=== PATIENT | female | born 1940 | race Caucasian/White ===

== ENCOUNTER → 2019-08-13 | Outpatient (CLI) | payer MEDICARE | LOC: FB.LABPRM 04:24 | PROVIDERS: ATTEND Family Medicine | DX: I48.91 Unspecified atrial fibrillation (principal) | CPT/HCPCS: 36415; 85610 ==

== ENCOUNTER → 2019-08-16 | Outpatient (CLI) | payer MEDICARE ==
[2019-08-16 06:57] LABS: HEMOGLOBIN A1C 7.1 % (4.5-6.2)
[2019-08-17 06:09] LABS: MICROALB/CREAT RATIO 36.2 mg/g creat (0.0-30.0)
== END ==
LOC: FB.LABPRM 04:06
PROVIDERS: ATTEND Family Medicine
DX: E11.9 Type 2 diabetes mellitus without complications (principal); I48.91 Unspecified atrial fibrillation; M10.9 Gout, unspecified
CPT/HCPCS: 36415; 80061; 82043; 82570; 83036; 84550; 85610

== ENCOUNTER → 2019-08-20 | Outpatient (CLI) | payer MEDICARE | LOC: FB.LABPRM 04:01 | PROVIDERS: ATTEND Family Medicine | DX: I48.91 Unspecified atrial fibrillation (principal) | CPT/HCPCS: 36415; 85610 ==

== ENCOUNTER 2019-08-27 19:03 | Emergency (ER) | payer MEDICARE ==
--- NOTE | 2019-08-27 20:38 | EDM.PDOC ---
ED HPI GENERAL MEDICAL PROBLEM - General Chief Complaint: Cardiovascular Problem Stated Complaint: weight gain Time Seen by Provider: 08/27/19 19:20 Source of Information: Reports: Patient History Limitations: Reports: No Limitations - History of Present Illness INITIAL COMMENTS - FREE TEXT/NARRATIVE: Patient presented to the ED because of weight gain and confusion. She denies any specific complains. She said there is nothing wrong with her at all and she is not just feeling right because her daughter is recently diagnosed with cancer and she feel bad about it. - Related Data Allergies Allergy/AdvReac Type Severity Reaction Status Date / Time aloe Allergy Other Verified 08/27/19 19:55 apixaban [From Eliquis] Allergy Other Verified 08/27/19 19:55 bee venom protein (honey bee) Allergy Other Verified 08/27/19 19:55 ciprofloxacin Allergy Other Verified 08/27/19 19:55 gabapentin Allergy Other Verified 08/27/19 19:55 lidocaine Allergy Other Verified 08/27/19 19:55 lisinopril Allergy Other Verified 08/27/19 19:55 mirabegron [From Myrbetriq] Allergy Other Verified 08/27/19 19:55 Penicillins Allergy Other Verified 08/27/19 19:55 prednisolone Allergy Other Verified 08/27/19 19:55 tomato Allergy Other Verified 08/27/19 19:55 tramadol Allergy Other Verified 08/27/19 19:55 Home Meds: Home Meds Furosemide [Lasix] 40 mg PO QAM #30 tab 08/27/19 [Rx] Past Medical History HEENT History: Reports: Glaucoma, Other (See Below) Other HEENT History: Dry eyes Cardiovascular History: Reports: Afib, Heart Failure, Hypertension, Other (See Below) Other Cardiovascular History: Occlusion and stenosis of carotid artery, 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, edema, PVD Gastrointestinal History: Reports: GERD, Other (See Below) Other Gastrointestinal History: Constipation, hyperlipidemia Genitourinary History: Reports: Other (See Below) Other Genitourinary History: Cystocele, overactive bladder, INCONTINENCE Musculoskeletal History: Reports: Other (See Below) Other Musculoskeletal History: Spinal stenosis, fibromyalgia Neurological History: Reports: CVA, TIA, Other (See Below) Other Neuro History: Polyneuropathy Psychiatric History: Reports: Anxiety, Depression Endocrine/Metabolic History: Reports: Diabetes, Type II, Obesity/BMI 30+ Hematologic History: Reports: Anemia Social & Family History - Tobacco Use Smoking Status *Q: Unknown Ever Smoked - Caffeine Use Caffeine Use: Reports: Coffee - Recreational Drug Use Recreational Drug Use: No ED ROS GENERAL - Review of Systems Review Of Systems: See Below Constitutional: Reports: No Symptoms HEENT: Reports: Glasses Respiratory: Reports: No Symptoms Cardiovascular: Reports: No Symptoms GI/Abdominal: Reports: No Symptoms : Reports: No Symptoms Musculoskeletal: Reports: No Symptoms Skin: Reports: No Symptoms Neurological: Reports: No Symptoms Psychiatric: Reports: No Symptoms ED EXAM, GENERAL - Physical Exam Exam: See Below Exam Limited By: No Limitations General Appearance: Alert, WD/WN, No Apparent Distress Nose: Normal Inspection, Normal Mucosa, No Blood Throat/Mouth: Normal Inspection, Normal Lips, Normal Teeth, Normal Gums Course - Vital Signs Text/Narrative:: Labs reviewed and discussed with patient resume lasix 40 mg po q Am x5 days Last Recorded V/S: Last Vital Signs Temp 36.8 C 08/27/19 19:45 Pulse 82 08/27/19 19:45 Resp 16 08/27/19 19:45 BP 177/64 H 08/27/19 19:45 Pulse Ox 93 L 08/27/19 19:45 - Orders/Labs/Meds Labs: Laboratory Tests 08/27/19 08/27/19 Range/Units 20:20 20:20 WBC 6.5 (4.5-12.0) X10-3/uL RBC 3.25 (3.23-5.20) x10(6)uL Hgb 9.2 L (11.5-15.5) g/dL Hct 28.2 L (30.0-51.3) % MCV 86.9 (80-96) fL MCH 28.2 (27.7-33.6) pg MCHC 32.5 (32.2-35.4) g/dL RDW 19.8 H (11.5-15.5) % Plt Count 239 (125-369) X10(3)uL MPV 9.0 (7.4-10.4) fL Neut % (Auto) 60.6 (46-82) % Lymph % (Auto) 26.4 (13-37) % [place] % (Auto) 7.6 (4-12) % Eos % (Auto) 5 (1.0-5.0) % Baso % (Auto) 0 (0-2) % Neut # (Auto) 4.0 (1.6-8.3) # Lymph # (Auto) 1.7 (0.6-5.0) # [place] # (Auto) 0.5 (0.0-1.3) # Eos # (Auto) 0.3 (0.0-0.8) # Baso # (Auto) 0.0 (0.0-0.2) # Sodium 143 (135-145) mmol/L Potassium 4.2 (3.5-5.3) mmol/L Chloride 110 D (100-110) mmol/L Carbon Dioxide 24 (21-32) mmol/L BUN 20 H D (7-18) mg/dL Creatinine 0.9 (0.55-1.02) mg/dL Est Cr Clr Drug Dosing 41.24 mL/min Estimated GFR (MDRD) > 60 (>60) BUN/Creatinine Ratio 22.2 H (9-20) Glucose 196 H (80-116) mg/dL Calcium 9.5 (8.6-10.2) mg/dL Departure - Departure Time of Disposition: 20:50 Disposition: DC/Tfer to SNF 03 Reason for Transfer *Q: Other Condition: Good Clinical Impression: Peripheral edema, CHF (congestive heart failure) Prescriptions: Furosemide [Lasix] 40 mg PO QAM #30 tab Referrals: Juliana Casas NP [Primary Care Provider] - Forms: ED Department Discharge Additional Instructions: please read discharge instructions on peripheral edema and CHF lasix 40 mg once every morning for 5 days follow up with your doctor on Friday
== END 2019-08-27 21:15 ==
LOC: FB.ED 19:03
DX: I11.0 Hypertensive heart disease with heart failure (principal); I50.9 Heart failure, unspecified; I48.91 Unspecified atrial fibrillation; Z88.8 Allergy status to other drugs, medicaments and biological substances; Z88.0 Allergy status to penicillin; Z88.5 Allergy status to narcotic agent; Z91.018 Allergy to other foods; Z91.030 Bee allergy status; Z88.6 Allergy status to analgesic agent; Z86.73 Personal history of transient ischemic attack (TIA), and cerebral infarction without residual deficits
CPT/HCPCS: 36415; 80048; 85025; 99285

== ENCOUNTER 2019-09-02 14:42 | Emergency (ER) | payer MEDICARE ==
--- NOTE | 2019-09-02 17:00 | EDM.PDOC ---
ED HPI GENERAL MEDICAL PROBLEM - General Chief Complaint: General Stated Complaint: PANCREATITIS Time Seen by Provider: 09/02/19 15:15 Source of Information: Reports: Patient History Limitations: Reports: No Limitations - History of Present Illness INITIAL COMMENTS - FREE TEXT/NARRATIVE: Patient presented to the ED for reevaluation of pancreatitis on CT of the abd/ pelvis. There is also small pleural effusion. Patient denies and abdominal pain ,N/V. She also denies having any dyspnea, cough or cold, fever or chills. - Related Data Allergies Allergy/AdvReac Type Severity Reaction Status Date / Time aloe Allergy Other Verified 09/02/19 14:55 apixaban [From Eliquis] Allergy Other Verified 09/02/19 14:55 bee venom protein (honey bee) Allergy Other Verified 09/02/19 14:55 ciprofloxacin Allergy Other Verified 09/02/19 14:55 gabapentin Allergy Other Verified 09/02/19 14:55 lidocaine Allergy Other Verified 09/02/19 14:55 lisinopril Allergy Other Verified 09/02/19 14:55 mirabegron [From Myrbetriq] Allergy Other Verified 09/02/19 14:55 Penicillins Allergy Other Verified 09/02/19 14:55 prednisolone Allergy Other Verified 09/02/19 14:55 tomato Allergy Other Verified 09/02/19 14:55 tramadol Allergy Other Verified 09/02/19 14:55 Home Meds: Home Meds Acetaminophen 650 mg PO Q4H PRN 08/27/19 [History] Acetaminophen [Tylenol Extra Strength] 1,000 mg PO BID 08/27/19 [History] Acetaminophen with Codeine [Tylenol with Codeine #3 Tablet] 2 tab PO BID PRN [History] Allopurinol [Zyloprim] 200 mg PO DAILY 08/27/19 [History] Aspirin 81 mg PO DAILY 08/27/19 [History] Bisacodyl [Dulcolax] 10 mg RECTAL Q3D PRN 08/27/19 [History] Brimonidine [Alphagan 0.2% Ophth Soln] 1 drop EYEBOTH BID 08/27/19 [History] DULoxetine [Cymbalta] 60 mg PO DAILY 08/27/19 [History] Isosorbide Mononitrate [Isosorbide Mononitrate ER] 60 mg PO DAILY 08/27/19 [ History] Latanoprost/Pf [Latanoprost 0.005% Eye Drop] 1 drop EYEBOTH BEDTIME 08/27/19 [ History] Loperamide HCl [Imodium A-D] 2 mg PO ASDIRECTED PRN 08/27/19 [History] Menthol [Icy Hot Pain Relieving] 1 applic TOP ASDIRECTED PRN 08/27/19 [History] Metoprolol Succinate [Toprol Xl] 50 mg PO BID 08/27/19 [History] Mirtazapine [Remeron] 7.5 mg PO BEDTIME 08/27/19 [History] Ondansetron [Zofran ODT] 4 mg PO TID PRN 08/27/19 [History] Polyethylene Glycol 1450 17 gm PO ASDIRECTED PRN 08/27/19 [History] Polyethylene Glycol 3350 [MiraLAX] 17 gm PO DAILY 08/27/19 [History] Pramipexole Di-HCl [Pramipexole Dihydrochloride] 1 tab PO ASDIRECTED PRN [History] Propylene Glycol/PEG 400/Pf [Systane Ultra 0.4-0.3% Eye Drp] 1 drop EYEBOTH QID 08/27/19 [History] Sennosides/Docusate Sodium [Senokot-S Tablet] 1 tab PO BID 08/27/19 [History] Sodium Chloride 0.65% [[place] Saline] 2 spray NASBOTH Q2H PRN 08/27/19 [History] Trolamine Salicylate/Aloe Vera [Aspercreme 10% Cream] 1 applic TOP ASDIRECTED PRN 08/27/19 [History] Warfarin Sodium [Coumadin] 5 mg PO DAILY 08/27/19 [History] glipiZIDE [Glipizide ER] 10 mg PO DAILY 08/27/19 [History] Furosemide [Lasix] 20 mg PO QAM 09/02/19 [History] Nitroglycerin [Nitrostat] 0.4 mg SL ASDIRECTED 09/02/19 [History] Past Medical History HEENT History: Reports: Glaucoma, Other (See Below) Other HEENT History: Dry eyes Cardiovascular History: Reports: Afib, Heart Failure, Hypertension, Other (See Below) Other Cardiovascular History: Occlusion and stenosis of carotid artery, 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, edema, PVD Gastrointestinal History: Reports: GERD, Other (See Below) Other Gastrointestinal History: Constipation, hyperlipidemia Genitourinary History: Reports: Other (See Below) Other Genitourinary History: Cystocele, overactive bladder, INCONTINENCE Musculoskeletal History: Reports: Other (See Below) Other Musculoskeletal History: Spinal stenosis, fibromyalgia Neurological History: Reports: CVA, TIA, Other (See Below) Other Neuro History: Polyneuropathy Psychiatric History: Reports: Anxiety, Depression Endocrine/Metabolic History: Reports: Diabetes, Type II, Obesity/BMI 30+ Hematologic History: Reports: Anemia Social & Family History - Family History Family Medical History: Unobtainable - Tobacco Use Smoking Status *Q: Never Smoker - Caffeine Use Caffeine Use: Reports: Coffee, Soda - Recreational Drug Use Recreational Drug Use: No ED ROS GENERAL - Review of Systems Review Of Systems: See Below Constitutional: Reports: No Symptoms HEENT: Reports: No Symptoms Respiratory: Reports: No Symptoms Cardiovascular: Reports: No Symptoms Endocrine: Reports: No Symptoms GI/Abdominal: Reports: No Symptoms : Reports: No Symptoms Musculoskeletal: Reports: No Symptoms Skin: Reports: No Symptoms Neurological: Reports: No Symptoms Psychiatric: Reports: No Symptoms Hematologic/Lymphatic: Reports: No Symptoms Immunologic: Reports: No Symptoms ED EXAM, GENERAL - Physical Exam Exam: See Below Exam Limited By: No Limitations General Appearance: Alert, WD/WN, No Apparent Distress Eye Exam: Bilateral Eye: PERRL Ears: Normal External Exam, Normal Canal, Normal TMs Nose: Normal Inspection, Normal Mucosa, No Blood Throat/Mouth: Normal Inspection, Normal Lips, Normal Teeth Head: Normocephalic, Sinus Tenderness Neck: Normal Inspection, Supple, Non-Tender Respiratory/Chest: No Respiratory Distress, Lungs Clear, Normal Breath Sounds Cardiovascular: Normal Peripheral Pulses, Regular Rate, Rhythm, No Edema, No Gallop, No JVD, No Murmur, No Rub GI/Abdominal: Normal Bowel Sounds, Soft, Non-Tender, No Organomegaly Rectal (Female) Exam: Normal Exam, Normal Rectal Tone Back Exam: Normal Inspection, Full Range of Motion Extremities: Normal Inspection, Normal Range of Motion, Non-Tender, No Pedal Edema Skin Exam: Warm Course - Vital Signs Text/Narrative:: labs reviewed and discussed with patient and with full understanding Clinically , patient doesn't have pancreatitis. No abdominal pain,N/V, and lipase is normal The small pleural eff on CT is from her CHF,although she is not having exacerbation. Her oxygen saturation is normal,normal breathe sounds, no edema and denies having dyspnea. Last Recorded V/S: Last Vital Signs Temp 35.8 C 09/02/19 14:45 Pulse 72 09/02/19 15:51 Resp 20 09/02/19 15:51 BP 113/61 09/02/19 15:51 Pulse Ox 92 L 09/02/19 15:51 - Orders/Labs/Meds Orders: Active Orders 24 hr Category Date Time Status Chest 1V Frontal [CR] Stat Exams 09/02/19 15:54 Taken Labs: Laboratory Tests 09/02/19 09/02/19 09/02/19 Range/Units 16:19 16:19 16:19 WBC 6.9 (4.5-12.0) X10-3/uL RBC 3.47 (3.23-5.20) x10(6)uL Hgb 9.5 L (11.5-15.5) g/dL Hct 30.2 (30.0-51.3) % MCV 86.8 (80-96) fL MCH 27.2 L (27.7-33.6) pg MCHC 31.3 L (32.2-35.4) g/dL RDW 19.1 H (11.5-15.5) % Plt Count 239 (125-369) X10(3)uL MPV 9.0 (7.4-10.4) fL Neut % (Auto) 56.5 (46-82) % Lymph % (Auto) 29.2 (13-37) % [place] % (Auto) 8.1 (4-12) % Eos % (Auto) 6 H (1.0-5.0) % Baso % (Auto) 0 (0-2) % Neut # (Auto) 3.9 (1.6-8.3) # Lymph # (Auto) 2.0 (0.6-5.0) # [place] # (Auto) 0.6 (0.0-1.3) # Eos # (Auto) 0.4 (0.0-0.8) # Baso # (Auto) 0.0 (0.0-0.2) # Sodium 138 (135-145) mmol/L Potassium 3.7 (3.5-5.3) mmol/L Chloride 104 (100-110) mmol/L Carbon Dioxide 25 (21-32) mmol/L BUN 20 H (7-18) mg/dL Creatinine 1.0 (0.55-1.02) mg/dL Est Cr Clr Drug Dosing 37.12 mL/min Estimated GFR (MDRD) 53 L (>60) BUN/Creatinine Ratio 20.0 (9-20) Glucose 150 H (80-116) mg/dL Calcium 9.1 (8.6-10.2) mg/dL Total Bilirubin 0.7 (0.1-1.3) mg/dL AST 42 H D (5-25) IU/L ALT 44 H D (12-36) U/L Alkaline Phosphatase 271 H (56-112) IU/L Total Protein 6.4 (6.0-8.0) g/dL Albumin 2.8 L (3.2-4.6) g/dL Globulin 3.6 g/dL Albumin/Globulin Ratio 0.8 Amylase 29 (25-115) U/L Lipase 110 (73-393) U/L Departure - Departure Time of Disposition: 16:35 Disposition: DC/Tfer to SNF 03 Condition: Good Clinical Impression: Pleural effusion, CHF (congestive heart failure) - Discharge Information Instructions: Pleural Effusion, Heart Failure, [id number] Referrals: Axel Daivs MD [Primary Care Provider] - Forms: ED Department Discharge Additional Instructions: please read discharge instructions on CHF and pleural effusion follow up as needed - My Orders Last 24 Hours: My Active Orders 09/02/19 15:54 Chest 1V Frontal [CR] Stat - Assessment/Plan Last 24 Hours: My Active Orders 09/02/19 15:54 Chest 1V Frontal [CR] Stat
== END 2019-09-02 17:15 | disposition home or self-care (01) ==
LOC: FB.ED 14:42
DX: J90 Pleural effusion, not elsewhere classified (principal); I11.0 Hypertensive heart disease with heart failure; I50.9 Heart failure, unspecified; K21.9 Gastro-esophageal reflux disease without esophagitis; F41.9 Anxiety disorder, unspecified; F32.9 Major depressive disorder, single episode, unspecified; E11.9 Type 2 diabetes mellitus without complications; E66.9 Obesity, unspecified; Z79.82 Long term (current) use of aspirin; Z68.41 Body mass index [BMI] 40.0-44.9, adult; Z79.899 Other long term (current) drug therapy; Z79.84 Long term (current) use of oral hypoglycemic drugs; Z86.73 Personal history of transient ischemic attack (TIA), and cerebral infarction without residual deficits; Z88.8 Allergy status to other drugs, medicaments and biological substances; Z91.09 Other allergy status, other than to drugs and biological substances; Z88.6 Allergy status to analgesic agent; Z91.018 Allergy to other foods
CPT/HCPCS: 36415; 71045; 80053; 82150; 83690; 85025; 99284-25

== ENCOUNTER 2019-09-05 18:59 | Inpatient (IN) | payer MEDICARE ==
--- NOTE | 2019-09-05 19:27 | EDM.PDOC ---
ED HPI GENERAL MEDICAL PROBLEM - General Chief Complaint: Respiratory Problem Stated Complaint: TEMP/LOW OT STATS Time Seen by Provider: 09/05/19 19:05 Source of Information: Reports: Patient, [facility] Records History Limitations: Reports: Altered Mental Status - History of Present Illness INITIAL COMMENTS - FREE TEXT/NARRATIVE: pt with Hx of dementia, comes from [place] were she was noted to be running fever 101.9 this evening and looking confused also hypoxic by staff, sats are at high 80s on ra, pt here is confused and unable to provide reliable Hx , she does report some pain on stomach area, rest of medical Hx is unobtainable from pt. pt was seen here few days ago , she had recently on the abd CT showing signs of pancreatitis and pleural effusion however was asymptomatic at that time. - Related Data Allergies Allergy/AdvReac Type Severity Reaction Status Date / Time aloe Allergy Other Verified 09/05/19 19:10 apixaban [From Eliquis] Allergy Other Verified 09/05/19 19:10 bee venom protein (honey bee) Allergy Other Verified 09/05/19 19:10 ciprofloxacin Allergy Other Verified 09/05/19 19:10 gabapentin Allergy Other Verified 09/05/19 19:10 lidocaine Allergy Other Verified 09/05/19 19:10 lisinopril Allergy Other Verified 09/05/19 19:10 mirabegron [From Myrbetriq] Allergy Other Verified 09/05/19 19:10 Penicillins Allergy Other Verified 09/05/19 19:10 prednisolone Allergy Other Verified 09/05/19 19:10 tomato Allergy Other Verified 09/05/19 19:10 tramadol Allergy Other Verified 09/05/19 19:10 Home Meds: Home Meds Acetaminophen 650 mg PO Q4H PRN 08/27/19 [History] Acetaminophen [Tylenol Extra Strength] 1,000 mg PO BID 08/27/19 [History] Acetaminophen with Codeine [Tylenol with Codeine #3 Tablet] 2 tab PO BID PRN [History] Allopurinol [Zyloprim] 200 mg PO DAILY 08/27/19 [History] Aspirin 81 mg PO DAILY 08/27/19 [History] Bisacodyl [Dulcolax] 10 mg RECTAL Q3D PRN 08/27/19 [History] Brimonidine [Alphagan 0.2% Ophth Soln] 1 drop EYEBOTH BID 08/27/19 [History] DULoxetine [Cymbalta] 60 mg PO DAILY 08/27/19 [History] Isosorbide Mononitrate [Isosorbide Mononitrate ER] 60 mg PO DAILY 08/27/19 [ History] Latanoprost/Pf [Latanoprost 0.005% Eye Drop] 1 drop EYEBOTH BEDTIME 08/27/19 [ History] Loperamide HCl [Imodium A-D] 2 mg PO ASDIRECTED PRN 08/27/19 [History] Menthol [Icy Hot Pain Relieving] 1 applic TOP ASDIRECTED PRN 08/27/19 [History] Metoprolol Succinate [Toprol Xl] 50 mg PO BID 08/27/19 [History] Mirtazapine [Remeron] 7.5 mg PO BEDTIME 08/27/19 [History] Ondansetron [Zofran ODT] 4 mg PO TID PRN 08/27/19 [History] Polyethylene Glycol 1450 17 gm PO ASDIRECTED PRN 08/27/19 [History] Polyethylene Glycol 3350 [MiraLAX] 17 gm PO DAILY 08/27/19 [History] Pramipexole Di-HCl [Pramipexole Dihydrochloride] 1 tab PO ASDIRECTED PRN [History] Propylene Glycol/PEG 400/Pf [Systane Ultra 0.4-0.3% Eye Drp] 1 drop EYEBOTH QID 08/27/19 [History] Sennosides/Docusate Sodium [Senokot-S Tablet] 1 tab PO BID 08/27/19 [History] Sodium Chloride 0.65% [[place] Saline] 2 spray NASBOTH Q2H PRN 08/27/19 [History] Trolamine Salicylate/Aloe Vera [Aspercreme 10% Cream] 1 applic TOP ASDIRECTED PRN 08/27/19 [History] Warfarin Sodium [Coumadin] 5 mg PO DAILY 08/27/19 [History] glipiZIDE [Glipizide ER] 10 mg PO DAILY 08/27/19 [History] Furosemide [Lasix] 20 mg PO QAM 09/02/19 [History] Nitroglycerin [Nitrostat] 0.4 mg SL ASDIRECTED 09/02/19 [History] Past Medical History HEENT History: Reports: Glaucoma, Other (See Below) Other HEENT History: Dry eyes Cardiovascular History: Reports: Afib, Heart Failure, Hypertension, Other (See Below) Other Cardiovascular History: Occlusion and stenosis of carotid artery, 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, edema, PVD Gastrointestinal History: Reports: GERD, Other (See Below) Other Gastrointestinal History: Constipation, hyperlipidemia Genitourinary History: Reports: Other (See Below) Other Genitourinary History: Cystocele, overactive bladder, INCONTINENCE Musculoskeletal History: Reports: Other (See Below) Other Musculoskeletal History: Spinal stenosis, fibromyalgia Neurological History: Reports: CVA, TIA, Other (See Below) Other Neuro History: Polyneuropathy Psychiatric History: Reports: Anxiety, Depression Endocrine/Metabolic History: Reports: Diabetes, Type II, Obesity/BMI 30+ Hematologic History: Reports: Anemia Social & Family History - Family History Family Medical History: Unobtainable - Tobacco Use Smoking Status *Q: Unknown Ever Smoked Second Hand Smoke Exposure: No - Caffeine Use Caffeine Use: Reports: Coffee - Recreational Drug Use Recreational Drug Use: No ED ROS GENERAL - Review of Systems Review Of Systems: Unable To Obtain Reason Not Obtained: dementia and confusion. ED EXAM, GENERAL - Physical Exam Exam: See Below Exam Limited By: Altered Mental Status General Appearance: Alert, Other (pt appear confused but follow simple commands. ) Eye Exam: Bilateral Eye: Normal Inspection Nose: Normal Inspection Throat/Mouth: Normal Inspection, Normal Oropharynx Head: Atraumatic, Normocephalic Neck: Normal Inspection, Supple, Non-Tender Respiratory/Chest: No Respiratory Distress, Lungs Clear, Normal Breath Sounds Cardiovascular: Normal Peripheral Pulses, Regular Rate, Rhythm GI/Abdominal: Normal Bowel Sounds, Soft, Non-Tender, Other (tender over the epigastric area, no gaurding or rebound. ) Back Exam: Normal Inspection Extremities: Normal Inspection, Normal Range of Motion Neurological: Alert, Oriented, Normal Reflexes, No Motor/Sensory Deficits, Confused Psychiatric: Flat Affect Course - Vital Signs Text/Narrative:: CXR shows small pleural effusions and infiltrates at RLL . WBC is mildly elevated and pt has elevated Lactic acid . abd xray shows no acute findings , lipase and amylase are nl, we were unable to obtain urine at this time and pt was uncooperative with straight cath. pt has pneumonia and ? sepsis , 2 sets of blood cultures were obtained and IV abx were then started, will start gentle hydration, pt will be admitted acute and Dr Giordano will follow with pt in morning. Last Recorded V/S: Last Vital Signs Temp 37.6 C 09/05/19 19:20 Pulse 90 09/05/19 19:20 Resp 20 09/05/19 19:20 BP 117/59 L 09/05/19 19:20 Pulse Ox 93 L 09/05/19 19:20 - Orders/Labs/Meds Orders: Active Orders 24 hr Category Date Time Status Patient Status [ADT] Routine ADT 09/05/19 21:16 Ordered Oxygen Therapy [RC] PRN Care 09/05/19 21:16 Ordered VTE/DVT Education [RC] Per Unit Routine Care 09/05/19 21:16 Ordered Vital Signs [RC] Q4H Care 09/05/19 21:16 Ordered Abdomen 1V Flat [CR] Stat Exams 09/05/19 20:47 Taken Chest 1V Frontal [CR] Stat Exams 09/05/19 20:47 Taken BASIC METABOLIC PANEL,BMP [CHEM] Stat Lab 09/05/19 21:19 Ordered CBC WITH AUTO DIFF [HEME] Stat Lab 09/05/19 21:19 Ordered CULTURE BLOOD [BC] Urgent Lab 09/05/19 19:40 Received CULTURE BLOOD [BC] Urgent Lab 09/05/19 19:50 Received INR,PT,PROTHROMBIN TIME [COAG] Stat Lab 09/05/19 21:22 Ordered PTT,PARTIAL THROMBOPLSTIN TIME [COAG] Stat Lab 09/05/19 21:22 Ordered UA W/MICROSCOPIC [URIN] Stat Lab 09/05/19 19:30 Ordered Sodium Chloride 0.9% @ 125 MLS/HR (1000ml) Med 09/05/19 21:30 Ordered Sodium Chloride 0.9% [Normal Saline] 1,000 ml IV ASDIRECTED Vancomycin/Water For Inj (Peg) [Vancomycin 1.5 GM/300 Med 09/05/19 21:30 Ordered ML Bag] 1.5 gm Premix Bag 1 bag IV ASDIRECTED cefTRIAXone [Rocephin] 1 gm Med 09/05/19 21:30 Ordered Sodium Chloride 0.9% [Normal Saline] 50 ml IV Q24H Blood Culture x2 Reflex Set [OM.PC] Urgent Oth 09/05/19 19:30 Ordered Resuscitation Status Routine Resus Stat 09/05/19 21:15 Ordered Medication Orders Ceftriaxone Sodium 1 gm/ (Sodium Chloride) 50 mls @ 200 mls/hr IV Q24H [place] Sodium Chloride (Normal Saline) 1,000 mls @ 125 mls/hr IV ASDIRECTED [place] Vancomycin HCl 1.5 gm/ Premix 300 mls @ 300 mls/hr IV ASDIRECTED [place] Labs: Laboratory Tests 09/05/19 09/05/19 09/05/19 Range/Units 19:50 19:50 19:50 WBC 12.4 H (4.5-12.0) X10-3/uL RBC 3.41 (3.23-5.20) x10(6)uL Hgb 9.6 L (11.5-15.5) g/dL Hct 29.4 L (30.0-51.3) % MCV 86.3 (80-96) fL MCH 28.1 (27.7-33.6) pg MCHC 32.5 (32.2-35.4) g/dL RDW 19.0 H (11.5-15.5) % Plt Count 234 (125-369) X10(3)uL Sodium 140 (135-145) mmol/L Potassium 3.6 (3.5-5.3) mmol/L Chloride 104 (100-110) mmol/L Carbon Dioxide 23 (21-32) mmol/L BUN 22 H (7-18) mg/dL Creatinine 1.1 H (0.55-1.02) mg/dL Est Cr Clr Drug Dosing 33.74 mL/min Estimated GFR (MDRD) 48 L (>60) BUN/Creatinine Ratio 20.0 (9-20) Glucose 155 H (80-116) mg/dL Lactic Acid (0.4-2.2) mmol/L Calcium 9.1 (8.6-10.2) mg/dL Total Bilirubin 0.8 (0.1-1.3) mg/dL AST 41 H (5-25) IU/L ALT 38 H D (12-36) U/L Alkaline Phosphatase 238 H (56-112) IU/L Total Protein 6.4 (6.0-8.0) g/dL Albumin 2.8 L (3.2-4.6) g/dL Globulin 3.6 g/dL Albumin/Globulin Ratio 0.8 Amylase (25-115) U/L Lipase 109 (73-393) U/L 09/05/19 09/05/19 Range/Units 19:50 19:50 WBC (4.5-12.0) X10-3/uL RBC (3.23-5.20) x10(6)uL Hgb (11.5-15.5) g/dL Hct (30.0-51.3) % MCV (80-96) fL MCH (27.7-33.6) pg MCHC (32.2-35.4) g/dL RDW (11.5-15.5) % Plt Count (125-369) X10(3)uL Sodium (135-145) mmol/L Potassium (3.5-5.3) mmol/L Chloride (100-110) mmol/L Carbon Dioxide (21-32) mmol/L BUN (7-18) mg/dL Creatinine (0.55-1.02) mg/dL Est Cr Clr Drug Dosing mL/min Estimated GFR (MDRD) (>60) BUN/Creatinine Ratio (9-20) Glucose (80-116) mg/dL Lactic Acid 2.3 H (0.4-2.2) mmol/L Calcium (8.6-10.2) mg/dL Total Bilirubin (0.1-1.3) mg/dL AST (5-25) IU/L ALT (12-36) U/L Alkaline Phosphatase (56-112) IU/L Total Protein (6.0-8.0) g/dL Albumin (3.2-4.6) g/dL Globulin g/dL Albumin/Globulin Ratio Amylase 23 L (25-115) U/L Lipase (73-393) U/L Meds: Medications Generic Name Dose Route Start Last Admin Trade Name Freq PRN Reason Stop Dose Admin Ceftriaxone Sodium 1 gm/ 50 mls @ 200 mls/hr 09/05/19 21:30 Sodium Chloride IV Q24H [place] Sodium Chloride 1,000 mls @ 125 mls/hr 09/05/19 21:30 Normal Saline IV ASDIRECTED [place] Vancomycin HCl 1.5 gm/ Premix 300 mls @ 300 mls/hr 09/05/19 21:30 IV ASDIRECTED [place] Departure - Departure Time of Disposition: 21:28 Disposition: Admitted As Inpatient 64 Clinical Impression: Pneumonia - Discharge Information Referrals: PCP,None [Ordering Only Provider] - Forms: ED Department Discharge - My Orders Last 24 Hours: My Active Orders 09/05/19 19:30 UA W/MICROSCOPIC [URIN] Stat Blood Culture x2 Reflex Set [OM.PC] Urgent 09/05/19 19:40 CULTURE BLOOD [BC] Urgent 09/05/19 19:50 CULTURE BLOOD [BC] Urgent 09/05/19 20:47 Abdomen 1V Flat [CR] Stat Chest 1V Frontal [CR] Stat 09/05/19 21:15 Resuscitation Status Routine 09/05/19 21:16 Patient Status [ADT] Routine Oxygen Therapy [RC] PRN VTE/DVT Education [RC] Per Unit Routine Vital Signs [RC] Q4H 09/05/19 21:19 BASIC METABOLIC PANEL,BMP [CHEM] Stat CBC WITH AUTO DIFF [HEME] Stat 09/05/19 21:22 INR,PT,PROTHROMBIN TIME [COAG] Stat PTT,PARTIAL THROMBOPLSTIN TIME [COAG] Stat 09/05/19 21:30 Sodium Chloride 0.9% @ 125 MLS/HR (1000ml) Sodium Chloride 0.9% [Normal Saline] 1,000 ml IV ASDIRECTED Vancomycin/Water For Inj (Peg) [Vancomycin 1.5 GM/300 ML Bag] 1.5 gm Premix Bag 1 bag IV ASDIRECTED cefTRIAXone [Rocephin] 1 gm Sodium Chloride 0.9% [Normal Saline] 50 ml IV Q24H - Assessment/Plan Last 24 Hours: My Active Orders 09/05/19 19:30 UA W/MICROSCOPIC [URIN] Stat Blood Culture x2 Reflex Set [OM.PC] Urgent 09/05/19 19:40 CULTURE BLOOD [BC] Urgent 09/05/19 19:50 CULTURE BLOOD [BC] Urgent 09/05/19 20:47 Abdomen 1V Flat [CR] Stat Chest 1V Frontal [CR] Stat 09/05/19 21:15 Resuscitation Status Routine 09/05/19 21:16 Patient Status [ADT] Routine Oxygen Therapy [RC] PRN VTE/DVT Education [RC] Per Unit Routine Vital Signs [RC] Q4H 09/05/19 21:19 BASIC METABOLIC PANEL,BMP [CHEM] Stat CBC WITH AUTO DIFF [HEME] Stat 09/05/19 21:22 INR,PT,PROTHROMBIN TIME [COAG] Stat PTT,PARTIAL THROMBOPLSTIN TIME [COAG] Stat 09/05/19 21:30 Sodium Chloride 0.9% @ 125 MLS/HR (1000ml) Sodium Chloride 0.9% [Normal Saline] 1,000 ml IV ASDIRECTED Vancomycin/Water For Inj (Peg) [Vancomycin 1.5 GM/300 ML Bag] 1.5 gm Premix Bag 1 bag IV ASDIRECTED cefTRIAXone [Rocephin] 1 gm Sodium Chloride 0.9% [Normal Saline] 50 ml IV Q24H
[2019-09-05] MEDS ORDERED: VANCOMYCIN/WATER FOR INJ (PEG) 1.5 GM in Premix Bag 1 BAG IV SCH (21:30)
[2019-09-05] MEDS ORDERED: cefTRIAXone 1 GM in Sodium Chloride 0.9% 50 ML IV SCH (21:30)
[2019-09-05] MEDS: Sodium Chloride 0.9% 1,000 ML IV SCH (22:58)
[2019-09-06] MEDS: Sodium Chloride 0.9% 1,000 ML IV SCH (08:16)
[2019-09-06] MEDS ORDERED: Loperamide 2 MG Cap PO PRN (08:51)
[2019-09-06] MEDS ORDERED: Sodium Chloride 0.65% Nasal Spray 45 ML Bottle NASBOTH PRN (08:51)
[2019-09-06] MEDS ORDERED: Glucose Gel 15 GM in 37.5 GM Tube PO PRN (08:51)
[2019-09-06] MEDS ORDERED: Bisacodyl 10 MG Supp RECTAL PRN (08:51)
[2019-09-06] MEDS ORDERED: Magnesium Hydroxide 400 MG/5 ML Susp 30 ML Cup PO PRN (08:51)
--- NOTE | 2019-09-06 08:51 | PCM.HP.2 ---
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 The symptoms were fairly sudden onset , and temperature maximum reported about 101.5F. She's not able to give much history. Past record indicates a history of cholelithiasis present cholecystectomy, chronic lumbar stenosis, it fibrillation on anticoagulation, coronary disease. - Related Data Allergies/Adverse Reactions: Allergies Allergy/AdvReac Type Severity Reaction Status Date / Time aloe Allergy Other Verified 09/05/19 19:10 apixaban [From Eliquis] Allergy Other Verified 09/05/19 19:10 bee venom protein (honey bee) Allergy Other Verified 09/05/19 19:10 ciprofloxacin Allergy Other Verified 09/05/19 19:10 gabapentin Allergy Other Verified 09/05/19 19:10 lidocaine Allergy Other Verified 09/05/19 19:10 lisinopril Allergy Other Verified 09/05/19 19:10 mirabegron [From Myrbetriq] Allergy Other Verified 09/05/19 19:10 Penicillins Allergy Other Verified 09/05/19 19:10 prednisolone Allergy Other Verified 09/05/19 19:10 tomato Allergy Other Verified 09/05/19 19:10 tramadol Allergy Other Verified 09/05/19 19:10 Home Medications: Home Meds Acetaminophen 650 mg PO Q4H PRN 08/27/19 [History] Acetaminophen [Tylenol Extra Strength] 1,000 mg PO BID 08/27/19 [History] Acetaminophen with Codeine [Tylenol with Codeine #3 Tablet] 2 tab PO BID PRN [History] Allopurinol [Zyloprim] 200 mg PO DAILY 08/27/19 [History] Aspirin 81 mg PO DAILY 08/27/19 [History] Bisacodyl [Dulcolax] 10 mg RECTAL Q3D PRN 08/27/19 [History] Brimonidine [Alphagan 0.2% Ophth Soln] 1 drop EYEBOTH BID 08/27/19 [History] DULoxetine [Cymbalta] 60 mg PO DAILY 08/27/19 [History] Isosorbide Mononitrate [Isosorbide Mononitrate ER] 60 mg PO DAILY 08/27/19 [ History] Latanoprost/Pf [Latanoprost 0.005% Eye Drop] 1 drop EYEBOTH BEDTIME 08/27/19 [ History] Loperamide HCl [Imodium A-D] 2 mg PO ASDIRECTED PRN 08/27/19 [History] Menthol [Icy Hot Pain Relieving] 1 applic TOP ASDIRECTED PRN 08/27/19 [History] Metoprolol Succinate [Toprol Xl] 50 mg PO BID 08/27/19 [History] Mirtazapine [Remeron] 7.5 mg PO BEDTIME 08/27/19 [History] Ondansetron [Zofran ODT] 4 mg PO TID PRN 08/27/19 [History] Polyethylene Glycol 1450 17 gm PO ASDIRECTED PRN 08/27/19 [History] Polyethylene Glycol 3350 [MiraLAX] 17 gm PO DAILY 08/27/19 [History] Pramipexole Di-HCl [Pramipexole Dihydrochloride] 1 tab PO ASDIRECTED PRN [History] Propylene Glycol/PEG 400/Pf [Systane Ultra 0.4-0.3% Eye Drp] 1 drop EYEBOTH QID 08/27/19 [History] Sennosides/Docusate Sodium [Senokot-S Tablet] 1 tab PO BID 08/27/19 [History] Sodium Chloride 0.65% [Shreve Saline] 2 spray NASBOTH Q2H PRN 08/27/19 [History] Trolamine Salicylate/Aloe Vera [Aspercreme 10% Cream] 1 applic TOP ASDIRECTED PRN 08/27/19 [History] Warfarin Sodium [Coumadin] 5 mg PO SA 08/27/19 [History] glipiZIDE [Glipizide ER] 10 mg PO DAILY 08/27/19 [History] Nitroglycerin [Nitrostat] 0.4 mg SL ASDIRECTED 09/02/19 [History] Dextrose [Glucose Gel] 1 unit PO ASDIRECTED PRN 09/06/19 [History] Furosemide [Lasix] 40 mg PO DAILY 09/06/19 [History] Magnesium Hydroxide [Milk of Magnesia] 30 ml PO DAILY PRN 09/06/19 [History] Warfarin [Coumadin] 2.5 mg PO SUFR 09/06/19 [History] atorvaSTATin Calcium [Lipitor] 20 mg PO BEDTIME 09/06/19 [History] guaiFENesin [Robitussin] 10 ml PO Q4H PRN 09/06/19 [History] Past Medical History HEENT History: Reports: Glaucoma, Other (See Below) Other HEENT History: Dry eyes Cardiovascular History: Reports: Afib, Heart Failure, Hypertension, Other (See Below) Other Cardiovascular History: Occlusion and stenosis of carotid artery, atherosclerotic heart disease of [place] coronary arter without angina pectoris, edema, PVD Gastrointestinal History: Reports: GERD, Other (See Below) Other Gastrointestinal History: Constipation, hyperlipidemia Genitourinary History: Reports: Other (See Below) Other Genitourinary History: Cystocele, overactive bladder, INCONTINENCE Musculoskeletal History: Reports: Other (See Below) Other Musculoskeletal History: Spinal stenosis, fibromyalgia, weakness, osteoarthritis,R sciatica Neurological History: Reports: CVA, TIA, Other (See Below) Other Neuro History: Polyneuropathy Psychiatric History: Reports: Anxiety, Depression Endocrine/Metabolic History: Reports: Diabetes, Type II, Obesity/BMI 30+ Hematologic History: Reports: Anemia - Past Surgical History Female Surgical History: Reports: None Endocrine Surgical History: Reports: None Social & Family History - Family History Family Medical History: Unobtainable - Tobacco Use Smoking Status *Q: Former Smoker Years of Tobacco use: 3 Packs/Tins Daily: 0.2 Used Tobacco, but Quit: Yes Month/Year Tobacco Last Used: unknown Second Hand Smoke Exposure: No - Caffeine Use Caffeine Use: Reports: Coffee Other Caffeine Use: 1 cup a day - Recreational Drug Use Recreational Drug Use: No H&P Review of Systems - Review of Systems: Review Of Systems: Comprehensive ROS is negative, except as noted in HPI. Exam - Exam Exam: See Below - Vital Signs Vital Signs: Last Vital Signs Temp 99.1 F 09/06/19 04:00 Pulse 81 09/06/19 04:00 Resp 18 09/06/19 04:00 BP 136/49 L 09/06/19 04:00 Pulse Ox 94 L 09/06/19 04:00 Weight: 98.021 kg - Exam Quality Assessment: Supplemental Oxygen General: Alert, Oriented, 4 HEENT: PERRLA, Hearing Intact, Mucosa Moist & [place], Nares Patent, Normal Nasal Septum, Posterior Pharynx Clear, Conjunctiva Clear, EOMI, EACs Clear, TMs Clear Neck: Supple, Trachea Midline, 2 Lungs: Clear to Auscultation, Normal Respiratory Effort Cardiovascular: Regular Rate, Regular Rhythm GI/Abdominal Exam: Normal Bowel Sounds, Soft, Non-Tender, No Organomegaly, No Distention, No Abnormal Bruit, No Mass, Pelvis Stable (Female) Exam: Deferred Rectal (Female) Exam: Deferred Back Exam: Normal Inspection, Full Range of Motion, NT Extremities: Normal Inspection, Normal Range of Motion, Non-Tender, No Pedal Edema, Normal Capillary Refill Skin: Warm, Dry, Intact Neurological: Cranial Nerves Intact, Reflexes Equal Bilateral Neuro Extensive - Mental Status: Disorientation to Place, Disorientation to Time. No: Oriented x3, Memory Intact Neuro Extensive - Motor, Sensory, Reflexes: CN II-XII Intact, Normal Gait, Normal Reflexes Psychiatric: Anxious. No: Alert - Patient Data Lab Results Last 24 hrs: Laboratory Results - last 24 hr 09/05/19 09/05/19 09/05/19 Range/Units 19:50 19:50 19:50 WBC 12.4 H (4.5-12.0) X10-3/uL RBC 3.41 (3.23-5.20) x10(6)uL Hgb 9.6 L (11.5-15.5) g/dL Hct 29.4 L (30.0-51.3) % MCV 86.3 (80-96) fL MCH 28.1 (27.7-33.6) pg MCHC 32.5 (32.2-35.4) g/dL RDW 19.0 H (11.5-15.5) % Plt Count 234 (125-369) X10(3)uL PT (8.7-11.1) INR (0.89-1.13) APTT (24.4-33.2) SECONDS Sodium 140 (135-145) mmol/L Potassium 3.6 (3.5-5.3) mmol/L Chloride 104 (100-110) mmol/L Carbon Dioxide 23 (21-32) mmol/L BUN 22 H (7-18) mg/dL Creatinine 1.1 H (0.55-1.02) mg/dL Est Cr Clr Drug Dosing 33.74 mL/min Estimated GFR (MDRD) 48 L (>60) BUN/Creatinine Ratio 20.0 (9-20) Glucose 155 H (80-116) mg/dL Lactic Acid (0.4-2.2) mmol/L Calcium 9.1 (8.6-10.2) mg/dL Total Bilirubin 0.8 (0.1-1.3) mg/dL AST 41 H (5-25) IU/L ALT 38 H D (12-36) U/L Alkaline Phosphatase 238 H (56-112) IU/L Total Protein 6.4 (6.0-8.0) g/dL Albumin 2.8 L (3.2-4.6) g/dL Globulin 3.6 g/dL Albumin/Globulin Ratio 0.8 Amylase (25-115) U/L Lipase 109 (73-393) U/L 09/05/19 09/05/19 09/05/19 Range/Units 19:50 19:50 19:50 WBC (4.5-12.0) X10-3/uL RBC (3.23-5.20) x10(6)uL Hgb (11.5-15.5) g/dL Hct (30.0-51.3) % MCV (80-96) fL MCH (27.7-33.6) pg MCHC (32.2-35.4) g/dL RDW (11.5-15.5) % Plt Count (125-369) X10(3)uL PT 30.2 H (8.7-11.1) INR 3.15 H (0.89-1.13) APTT 39.0 H (24.4-33.2) SECONDS Sodium (135-145) mmol/L Potassium (3.5-5.3) mmol/L Chloride (100-110) mmol/L Carbon Dioxide (21-32) mmol/L BUN (7-18) mg/dL Creatinine (0.55-1.02) mg/dL Est Cr Clr Drug Dosing mL/min Estimated GFR (MDRD) (>60) BUN/Creatinine Ratio (9-20) Glucose (80-116) mg/dL Lactic Acid 2.3 H (0.4-2.2) mmol/L Calcium (8.6-10.2) mg/dL Total Bilirubin (0.1-1.3) mg/dL AST (5-25) IU/L ALT (12-36) U/L Alkaline Phosphatase (56-112) IU/L Total Protein (6.0-8.0) g/dL Albumin (3.2-4.6) g/dL Globulin g/dL Albumin/Globulin Ratio Amylase 23 L (25-115) U/L Lipase (73-393) U/L Result Diagrams: 09/05/19 19:50 09/05/19 19:50 Yovany Results Last 24 hrs: Microbiology 09/05/19 19:43 Influenza Type A Antigen Screen - Final Nasal, Unspecified NEGATIVE INFLUENZA A VIRUS AG REFERENCE RANGE: NEGATIVE Influenza Type B Antigen Screen - Final NEGATIVE INFLUENZA B VIRUS AG REFERENCE RANGE: NEGATIVE EKG INTERPRETATION Rhythm: A-Fib - Problem List (1) Pneumonia SNOMED Code(s): 662241524 ICD Code: J18.9 - PNEUMONIA, UNSPECIFIED ORGANISM Status: Acute Current Visit: Yes (2) Altered mental state SNOMED Code(s): 497039793 ICD Code: R41.82 - ALTERED MENTAL STATUS, UNSPECIFIED Status: Acute Current Visit: Yes (3) Afib SNOMED Code(s): 67839408 ICD Code: I48.91 - UNSPECIFIED ATRIAL FIBRILLATION Status: Acute Current Visit: Yes (4) HTN (hypertension) SNOMED Code(s): 34393506 ICD Code: I10 - ESSENTIAL (PRIMARY) HYPERTENSION Status: Acute Current Visit: Yes Qualifiers: Hypertension type: essential hypertension Qualified Code(s): I10 - Essential (primary) hypertension (5) Palliative care encounter SNOMED Code(s): 573444575 ICD Code: Z51.5 - ENCOUNTER FOR PALLIATIVE CARE Status: Acute Current Visit: Yes (6) Obesity SNOMED Code(s): 170570381, 363517767 ICD Code: E66.9 - OBESITY, UNSPECIFIED Status: Acute Current Visit: Yes (7) CAD (coronary artery disease) SNOMED Code(s): 52384543 ICD Code: I25.10 - ATHSCL HEART DISEASE OF [place] CORONARY ARTERY W/O ANG PCTRS Status: Acute Current Visit: Yes (8) Diabetes type 2, controlled SNOMED Code(s): 49024263, 901852054 ICD Code: E11.9 - TYPE 2 DIABETES MELLITUS WITHOUT COMPLICATIONS Status: Acute Current Visit: Yes (9) Spinal stenosis SNOMED Code(s): 59108508 ICD Code: M48.00 - SPINAL STENOSIS, SITE UNSPECIFIED Status: Acute Current Visit: Yes (10) CHF (congestive heart failure) SNOMED Code(s): 70193411 ICD Code: I50.9 - HEART FAILURE, UNSPECIFIED Status: Acute Current Visit : No Problem List Initiated/Reviewed/Updated: Yes Orders Last 24hrs: Active Orders 24 hr Category Date Time Status Patient Status [ADT] Routine ADT 09/05/19 21:16 Active Oxygen Therapy [RC] PRN Care 09/05/19 21:16 Active VTE/DVT Education [RC] Per Unit Routine Care 09/05/19 21:16 Active Vital Signs [RC] Q4H Care 09/05/19 21:16 Active Abdomen 1V Flat [CR] Stat Exams 09/05/19 20:47 Taken Chest 1V Frontal [CR] Stat Exams 09/05/19 20:47 Taken BASIC METABOLIC PANEL,BMP [CHEM] AM Lab 09/07/19 05:11 Ordered BASIC METABOLIC PANEL,BMP [CHEM] Stat Lab 09/06/19 06:00 Ordered CBC WITH AUTO DIFF [HEME] AM Lab 09/07/19 05:11 Ordered CBC WITH AUTO DIFF [HEME] Stat Lab 09/06/19 06:00 Ordered CULTURE BLOOD [BC] Urgent Lab 09/05/19 19:40 Received CULTURE BLOOD [BC] Urgent Lab 09/05/19 19:50 Received INR,PT,PROTHROMBIN TIME [COAG] Routine Lab 09/06/19 05:00 Ordered PRO B-TYPE NATRIUR PEPT,BNPPRO [CHEM] DAILY Lab 09/07/19 05:11 Ordered PRO B-TYPE NATRIUR PEPT,BNPPRO [CHEM] DAILY Lab 09/08/19 05:11 Ordered PRO B-TYPE NATRIUR PEPT,BNPPRO [CHEM] DAILY Lab 09/09/19 05:11 Ordered PRO B-TYPE NATRIUR PEPT,BNPPRO [CHEM] Stat Lab 09/06/19 08:45 Ordered TROPONIN I [CHEM] Stat Lab 09/06/19 08:45 Ordered UA W/MICROSCOPIC [URIN] Stat Lab 09/05/19 19:30 Ordered Azithromycin [Zithromax] 500 mg Med 09/06/19 08:45 Ordered Sodium Chloride 0.9% [Normal Saline (AdvBag)] 250 ml IV Q24H Furosemide [Lasix] Med 09/06/19 08:43 Once 40 mg IVPUSH NOW ONE cefTRIAXone [Rocephin] 1 gm Med 09/05/19 21:30 Active Sodium Chloride 0.9% [Normal Saline] 50 ml IV Q24H Blood Culture x2 Reflex Set [OM.PC] Urgent Oth 09/05/19 19:30 Ordered Resuscitation Status Routine Resus Stat 09/05/19 21:15 Ordered Medication Orders Furosemide (Lasix) 40 mg IVPUSH NOW ONE Stop: 09/06/19 08:44 Ceftriaxone Sodium 1 gm/ (Sodium Chloride) 50 mls @ 200 mls/hr IV Q24H [facility] Last Admin: 09/05/19 23:00 Dose: 200 mls/hr Azithromycin 500 mg/ Sodium (Chloride) 250 mls @ 250 mls/hr IV Q24H [facility] Assessment/Plan Comment:: The x-ray which does show right-sided infiltration and pleural effusion, and pulmonary vascular congestion. I suspect she has pneumonia and probably CHF. I' ll continue with Rocephin and IV azithromycin, given some Lasix discontinued IV fluids and repeat labs.
[2019-09-06] MEDS: Furosemide 40 MG/4 ML VIAL IVPUSH ONE ×2 (09:26→09:28)
[2019-09-06] MEDS: Azithromycin 500 MG in Sodium Chloride 0.9% 250 ML IV SCH (09:28)
[2019-09-06] MEDS: Brimonidine 0.2% Ophth Soln 5 ML Bottle EYEBOTH SCH ×3 (09:32→23:19)
[2019-09-06] MEDS: Allopurinol 100 MG Tab PO SCH (09:55)
[2019-09-06] MEDS: Polyethylene Glycol 3350 Powder 17 GM Packet PO SCH (09:55)
[2019-09-06] MEDS: DULoxetine 60 MG Cap PO SCH (09:55)
[2019-09-06] MEDS: Isosorbide Mononitrate 60 MG Tab.ER PO SCH (09:55)
[2019-09-06] MEDS: Aspirin 81 MG Tab.Chew PO SCH (09:55)
[2019-09-06] MEDS ORDERED: Polyethylene Glycol 3350 Powder 17 GM Packet PO PRN (10:00)
[2019-09-06] MEDS ORDERED: Perform Pain Reliever Gel 89 ML Tube TP PRN (10:15)
[2019-09-06] MEDS ORDERED: Trolamine Salicylate/Aloe Vera 10% Crm 85 GM Tube TOP PRN (10:15)
[2019-09-06] MEDS ORDERED: Warfarin Sliding Scale PO SCH (10:30)
[2019-09-06] MEDS: PEG 400/Propylene Glycol Ophth Soln 15 ML Bottle EYEBOTH SCH ×5 (12:16→23:25)
[2019-09-06] MEDS: Insulin Lispro 100 Unit/ML 3 ML KwikPen SUBCUT SCH ×2 (12:18→17:21)
[2019-09-06] MEDS ORDERED: Ondansetron 4 MG Tab.DIS PO PRN (14:06)
[2019-09-06] MEDS: Warfarin 2.5 MG Tab PO SCH (16:01)
[2019-09-06] MEDS ORDERED: Pramipexole 0.25 MG Tab PO PRN (21:00)
[2019-09-06] MEDS: Latanoprost 0.005% Ophth Soln 2.5 ML Bottle EYEBOTH SCH ×2 (22:09→23:22)
[2019-09-06] MEDS: Mirtazapine 15 MG Tab PO SCH ×2 (22:09→23:22)
[2019-09-06] MEDS: cefTRIAXone 1 GM Vial IVPUSH SCH (22:13)
[2019-09-07] MEDS: Insulin Lispro 100 Unit/ML 3 ML KwikPen SUBCUT SCH ×3 (08:06→17:25)
[2019-09-07] MEDS: Azithromycin 500 MG in Sodium Chloride 0.9% 250 ML IV SCH (08:08)
[2019-09-07] MEDS: Brimonidine 0.2% Ophth Soln 5 ML Bottle EYEBOTH SCH ×2 (08:14→20:06)
[2019-09-07] MEDS: DULoxetine 60 MG Cap PO SCH (08:16)
[2019-09-07] MEDS: Aspirin 81 MG Tab.Chew PO SCH (08:16)
[2019-09-07] MEDS: Isosorbide Mononitrate 60 MG Tab.ER PO SCH (08:16)
[2019-09-07] MEDS: Allopurinol 100 MG Tab PO SCH (08:16)
[2019-09-07] MEDS: PEG 400/Propylene Glycol Ophth Soln 15 ML Bottle EYEBOTH SCH ×4 (08:17→20:08)
[2019-09-07] MEDS: Polyethylene Glycol 3350 Powder 17 GM Packet PO SCH (08:17)
--- NOTE | 2019-09-07 08:26 | PCM.PN ---
- General Info Date of Service: 09/07/19 Subjective Update: Patient refused all care yesterday,demanding to be returned home.She did not spike any temperature. She says she feels "awful". Still on O2. Functional Status: Reports: Pain Controlled - Review of Systems HEENT: Reports: No Symptoms Pulmonary: Reports: Shortness of Breath Cardiovascular: Reports: No Symptoms Gastrointestinal: Reports: No Symptoms Neurological: Reports: Confusion Psychiatric: Reports: Confusion, Depression - Patient Data Vitals - Most Recent: Last Vital Signs Temp 98.6 F 09/06/19 23:30 Pulse 98 09/06/19 23:30 Resp 20 09/06/19 23:30 BP 124/81 09/06/19 23:30 Pulse Ox 94 L 09/07/19 00:00 Weight - Most Recent: 98.021 kg Lab Results Last 24 Hours: Laboratory Results - last 24 hr 09/06/19 09/06/19 09/06/19 Range/Units 11:56 17:11 23:31 WBC (4.5-12.0) X10-3/uL RBC (3.23-5.20) x10(6)uL Hgb (11.5-15.5) g/dL Hct (30.0-51.3) % MCV (80-96) fL MCH (27.7-33.6) pg MCHC (32.2-35.4) g/dL RDW (11.5-15.5) % Plt Count (125-369) X10(3)uL MPV (7.4-10.4) fL Neut % (Auto) (46-82) % Lymph % (Auto) (13-37) % [place] % (Auto) (4-12) % Eos % (Auto) (1.0-5.0) % Baso % (Auto) (0-2) % Neut # (Auto) (1.6-8.3) # Lymph # (Auto) (0.6-5.0) # [place] # (Auto) (0.0-1.3) # Eos # (Auto) (0.0-0.8) # Baso # (Auto) (0.0-0.2) # PT (8.7-11.1) INR (0.89-1.13) Sodium (135-145) mmol/L Potassium (3.5-5.3) mmol/L Chloride (100-110) mmol/L Carbon Dioxide (21-32) mmol/L BUN (7-18) mg/dL Creatinine (0.55-1.02) mg/dL Est Cr Clr Drug Dosing mL/min Estimated GFR (MDRD) (>60) BUN/Creatinine Ratio (9-20) Glucose (80-116) mg/dL POC Glucose 97 76 L 74 L (80-116) mg/dL Calcium (8.6-10.2) mg/dL NT-Pro-B Natriuret Pep (<=450) pg/mL 09/07/19 09/07/19 09/07/19 Range/Units 07:45 07:45 07:45 WBC 7.8 (4.5-12.0) X10-3/uL RBC 3.37 (3.23-5.20) x10(6)uL Hgb 9.5 L (11.5-15.5) g/dL Hct 29.3 L (30.0-51.3) % MCV 86.9 (80-96) fL MCH 28.1 (27.7-33.6) pg MCHC 32.3 (32.2-35.4) g/dL RDW 18.6 H (11.5-15.5) % Plt Count 206 (125-369) X10(3)uL MPV 9.8 (7.4-10.4) fL Neut % (Auto) 65.0 (46-82) % Lymph % (Auto) 19.6 (13-37) % [place] % (Auto) 9.0 (4-12) % Eos % (Auto) 6 H (1.0-5.0) % Baso % (Auto) 0 (0-2) % Neut # (Auto) 5.1 (1.6-8.3) # Lymph # (Auto) 1.5 (0.6-5.0) # [place] # (Auto) 0.7 (0.0-1.3) # Eos # (Auto) 0.5 (0.0-0.8) # Baso # (Auto) 0.0 (0.0-0.2) # PT (8.7-11.1) INR (0.89-1.13) Sodium 146 H (135-145) mmol/L Potassium 3.5 (3.5-5.3) mmol/L Chloride 109 D (100-110) mmol/L Carbon Dioxide 25 (21-32) mmol/L BUN 17 (7-18) mg/dL Creatinine 0.8 (0.55-1.02) mg/dL Est Cr Clr Drug Dosing 46.40 mL/min Estimated GFR (MDRD) > 60 (>60) BUN/Creatinine Ratio 21.3 H (9-20) Glucose 129 H (80-116) mg/dL POC Glucose (80-116) mg/dL Calcium 8.8 (8.6-10.2) mg/dL NT-Pro-B Natriuret Pep 5977 H* (<=450) pg/mL 09/07/19 Range/Units 07:45 WBC (4.5-12.0) X10-3/uL RBC (3.23-5.20) x10(6)uL Hgb (11.5-15.5) g/dL Hct (30.0-51.3) % MCV (80-96) fL MCH (27.7-33.6) pg MCHC (32.2-35.4) g/dL RDW (11.5-15.5) % Plt Count (125-369) X10(3)uL MPV (7.4-10.4) fL Neut % (Auto) (46-82) % Lymph % (Auto) (13-37) % [place] % (Auto) (4-12) % Eos % (Auto) (1.0-5.0) % Baso % (Auto) (0-2) % Neut # (Auto) (1.6-8.3) # Lymph # (Auto) (0.6-5.0) # [place] # (Auto) (0.0-1.3) # Eos # (Auto) (0.0-0.8) # Baso # (Auto) (0.0-0.2) # PT 19.5 H (8.7-11.1) INR 2.02 H (0.89-1.13) Sodium (135-145) mmol/L Potassium (3.5-5.3) mmol/L Chloride (100-110) mmol/L Carbon Dioxide (21-32) mmol/L BUN (7-18) mg/dL Creatinine (0.55-1.02) mg/dL Est Cr Clr Drug Dosing mL/min Estimated GFR (MDRD) (>60) BUN/Creatinine Ratio (9-20) Glucose (80-116) mg/dL POC Glucose (80-116) mg/dL Calcium (8.6-10.2) mg/dL NT-Pro-B Natriuret Pep (<=450) pg/mL Yovany Results Last 24 Hours: Microbiology 09/05/19 19:50 Aerobic Blood Culture - Preliminary Blood - Venous - Lab Draw NO GROWTH AFTER 1 DAY Anaerobic Blood Culture - Preliminary NO GROWTH AFTER 1 DAY 09/05/19 19:40 Aerobic Blood Culture - Preliminary Blood - Venous NO GROWTH AFTER 1 DAY Anaerobic Blood Culture - Preliminary NO GROWTH AFTER 1 DAY Med Orders - Current: Current Medications Allopurinol (Zyloprim) 200 mg PO DAILY [facility] Last Admin: 09/07/19 08:16 Dose: 200 mg Aspirin (Aspirin) 81 mg PO DAILY [facility] Last Admin: 09/07/19 08:16 Dose: 81 mg Bisacodyl (Dulcolax) 10 mg RECTAL Q3D PRN PRN Reason: Constipation Brimonidine Tartrate (Alphagan 0.2% Ophth Soln) 0 ml EYEBOTH BID [facility] Last Admin: 09/07/19 08:14 Dose: 1 drop Ceftriaxone Sodium (Rocephin) 1 gm IVPUSH Q24H [facility] Last Admin: 09/06/19 22:13 Dose: 1 gm Dextrose (Glutose 15) 15 gm PO ASDIRECTED PRN PRN Reason: Hypoglycemia Duloxetine HCl (Cymbalta) 60 mg PO DAILY [facility] Last Admin: 09/07/19 08:16 Dose: 60 mg Furosemide (Lasix) 20 mg IVPUSH BID [facility] Azithromycin 500 mg/ Sodium (Chloride) 250 mls @ 250 mls/hr IV Q24H [facility] Last Admin: 09/07/19 08:08 Dose: 250 mls/hr Insulin Human Lispro (Humalog) 0 unit SUBCUT TIDMEALS [facility]; Protocol Last Admin: 09/07/19 08:06 Dose: Not Given Isosorbide Mononitrate (Imdur) 60 mg PO DAILY [facility] Last Admin: 09/07/19 08:16 Dose: 60 mg Latanoprost (Xalatan 0.005% Ophth Soln) 0 ml EYEBOTH BEDTIME [facility] Last Admin: 09/06/19 23:22 Dose: 1 drop Loperamide HCl (Imodium) 2 mg PO ASDIRECTED PRN PRN Reason: Loose Stools Magnesium Hydroxide (Milk Of Magnesia) 30 ml PO DAILY PRN PRN Reason: Constipation Menthol (Perform Pain Reliever) 0 ml TP BID PRN PRN Reason: PAIN Mirtazapine (Remeron) 7.5 mg PO BEDTIME [facility] Last Admin: 09/06/19 23:22 Dose: 7.5 mg Ondansetron HCl (Zofran Odt) 4 mg PO Q6H PRN PRN Reason: Nausea/Vomiting Polyethylene Glycol (Miralax) 17 gm PO DAILY PRN PRN Reason: CONSTIPATION Polyethylene Glycol (Miralax) 17 gm PO DAILY [facility] Last Admin: 09/07/19 08:17 Dose: 17 gm Pramipexole Dihydrochloride (Mirapex) 0.125 mg PO BEDTIME PRN PRN Reason: LEG CRAMPS Propylene Glycol (Systane Lubricant) 0 ml EYEBOTH QID [facility] Last Admin: 09/07/19 08:17 Dose: 1 drop Senna/Docusate Sodium (Senna Plus) 1 tab PO BID [facility] Last Admin: 09/07/19 08:16 Dose: 1 tab Sodium Chloride ([place] Nasal [place]) 0 ml NASBOTH Q2H PRN PRN Reason: Dry Nares Trolamine Salicylate (Aspercreme 10%) 0 gm TOP BID PRN PRN Reason: PAIN Warfarin Sodium (Coumadin) 2.5 mg PO [id number]@1600 [facility] Last Admin: 09/06/19 16:01 Dose: Not Given Warfarin Sodium (Coumadin) 5 mg PO [id number]@1600 [facility] Warfarin Sodium (Coumadin Sliding Scale) 1 each PO ASDIRECTED [facility] Discontinued Medications Furosemide (Lasix) 40 mg IVPUSH NOW ONE Stop: 09/06/19 08:44 Last Admin: 09/06/19 09:28 Dose: Not Given Ceftriaxone Sodium 1 gm/ (Sodium Chloride) 50 mls @ 200 mls/hr IV Q24H [facility] Last Admin: 09/05/19 23:00 Dose: 200 mls/hr Sodium Chloride (Normal Saline) 1,000 mls @ 125 mls/hr IV ASDIRECTED [facility] Last Admin: 09/06/19 08:16 Dose: 125 mls/hr Vancomycin HCl 1.5 gm/ Premix 300 mls @ 300 mls/hr IV ASDIRECTED [facility] Last Admin: 09/06/19 01:11 Dose: 300 mls/hr - Exam Quality Assessment: Supplemental Oxygen General: Alert, No Acute Distress HEENT: Pupils Equal Neck: Supple Lungs: Clear to Auscultation Cardiovascular: Irregular Rhythm GI/Abdominal Exam: No Mass Extremities: No Pedal Edema Skin: Warm Neurological: No New Focal Deficit Psy/Mental Status: Alert, Depressed - Problem List & Annotations (1) Pneumonia SNOMED Code(s): 505799368 Code(s): J18.9 - PNEUMONIA, UNSPECIFIED ORGANISM Status: Acute Current Visit: Yes (2) Altered mental state SNOMED Code(s): 301257330 Code(s): R41.82 - ALTERED MENTAL STATUS, UNSPECIFIED Status: Acute Current Visit: Yes (3) Afib SNOMED Code(s): 19780878 Code(s): I48.91 - UNSPECIFIED ATRIAL FIBRILLATION Status: Acute Current Visit: Yes (4) HTN (hypertension) SNOMED Code(s): 34433325 Code(s): I10 - ESSENTIAL (PRIMARY) HYPERTENSION Status: Acute Current Visit: Yes Qualifiers: Hypertension type: essential hypertension Qualified Code(s): I10 - Essential (primary) hypertension (5) Palliative care encounter SNOMED Code(s): 905895785 Code(s): Z51.5 - ENCOUNTER FOR PALLIATIVE CARE Status: Acute Current Visit: Yes (6) Obesity SNOMED Code(s): 632834082, 759663642 Code(s): E66.9 - OBESITY, UNSPECIFIED Status: Acute Current Visit: Yes (7) CAD (coronary artery disease) SNOMED Code(s): 75253964 Code(s): I25.10 - ATHSCL HEART DISEASE OF [place] CORONARY ARTERY W/O ANG PCTRS Status: Acute Current Visit: Yes (8) Diabetes type 2, controlled SNOMED Code(s): 89154138, 113237821 Code(s): E11.9 - TYPE 2 DIABETES MELLITUS WITHOUT COMPLICATIONS Status: Acute Current Visit: Yes (9) Spinal stenosis SNOMED Code(s): 03063819 Code(s): M48.00 - SPINAL STENOSIS, SITE UNSPECIFIED Status: Acute Current Visit: Yes (10) CHF (congestive heart failure) SNOMED Code(s): 26493987 Code(s): I50.9 - HEART FAILURE, UNSPECIFIED Status: Acute Current Visit: No - Problem List Review Problem List Initiated/Reviewed/Updated: Yes - My Orders Last 24 Hours: My Active Orders 09/06/19 08:45 Azithromycin [Zithromax] 500 mg Sodium Chloride 0.9% [Normal Saline (AdvBag)] 250 ml IV Q24H 09/06/19 08:51 Bisacodyl [Dulcolax] 10 mg RECTAL Q3D PRN Dextrose [Glutose 15] 15 gm PO ASDIRECTED PRN Loperamide [Imodium] 2 mg PO ASDIRECTED PRN Magnesium Hydroxide [Milk of Magnesia] 30 ml PO DAILY PRN Sodium Chloride 0.65% [[place] Nasal [place]] 0 ml NASBOTH Q2H PRN 09/06/19 09:00 Allopurinol [Zyloprim] 200 mg PO DAILY Aspirin 81 mg PO DAILY Brimonidine [Alphagan 0.2% Ophth Soln] 0 ml EYEBOTH BID DULoxetine [Cymbalta] 60 mg PO DAILY Docusate Sodium/Sennosides [Senna Plus] 1 tab PO BID Isosorbide Mononitrate [Imdur] 60 mg PO DAILY Polyethylene Glycol 3350 [MiraLAX] 17 gm PO DAILY 09/06/19 09:52 Accu Check [Blood Glucose Check, Bedside] [RC] TIDMEALS 09/06/19 10:00 PEG 400/Propylene Glycol [Systane Lubricant] 0 ml EYEBOTH QID Polyethylene Glycol 3350 [MiraLAX] 17 gm PO DAILY PRN 09/06/19 10:15 Menthol [Perform Pain Reliever] 0 ml TP BID PRN Trolamine Salicylate/Aloe Vera [Aspercreme 10%] 0 gm TOP BID PRN 09/06/19 10:30 Warfarin Sliding Scale [Coumadin Sliding Scale] 1 each PO ASDIRECTED 09/06/19 12:00 Insulin Lispro [HumaLOG] See Protocol SUBCUT TIDMEALS 09/06/19 14:06 Ondansetron [Zofran ODT] 4 mg PO Q6H PRN 09/06/19 16:00 Warfarin [Coumadin] 2.5 mg PO [id number]@1600 09/06/19 21:00 Latanoprost [Xalatan 0.005% Ophth Soln] 0 ml EYEBOTH BEDTIME Mirtazapine [Remeron] 7.5 mg PO BEDTIME Pramipexole [Mirapex] 0.125 mg PO BEDTIME PRN 09/06/19 Lunch Consistent Carbohydrate Diet [DIET] 09/07/19 09:00 Furosemide [Lasix] 20 mg IVPUSH BID 09/08/19 05:11 BASIC METABOLIC PANEL,BMP [CHEM] AM CBC WITH AUTO DIFF [HEME] AM PRO B-TYPE NATRIUR PEPT,BNPPRO [CHEM] DAILY 09/08/19 10:17 INR,PT,PROTHROMBIN TIME [COAG] DAILY 09/09/19 05:11 PRO B-TYPE NATRIUR PEPT,BNPPRO [CHEM] DAILY 09/12/19 16:00 Warfarin [Coumadin] 5 mg PO Neri@1600 - Plan Plan:: This morning she has tentatively agreed to care. Start IV Lasix,antibiotic therapy.
[2019-09-07] MEDS ORDERED: Diltiazem 25 MG/5 ML SDV IVPUSH ONE (08:50)
[2019-09-07] MEDS ORDERED: Furosemide 40 MG/4 ML VIAL IVPUSH SCH (09:00)
[2019-09-07] MEDS: Furosemide 20 MG/2 ML VIAL IVPUSH SCH ×2 (09:22→20:07)
[2019-09-07] MEDS: Diltiazem 125 MG in Sodium Chloride 0.9% 100 ML IV SCH ×2 (11:27→20:04)
[2019-09-07] MEDS ORDERED: Morphine 2 MG/ML Syringe IVPUSH PRN (12:16)
[2019-09-07] MEDS ORDERED: Diltiazem 25 MG/5 ML SDV IVPUSH STA ×2 (12:23→13:41)
[2019-09-07] MEDS: Sodium Chloride 0.9% 10 ML Syringe FLUSH PRN ×4 (12:49→21:53)
[2019-09-07] MEDS: Warfarin 2.5 MG Tab PO SCH (15:05)
[2019-09-07] MEDS: Mirtazapine 15 MG Tab PO SCH (20:07)
[2019-09-07] MEDS: Latanoprost 0.005% Ophth Soln 2.5 ML Bottle EYEBOTH SCH (20:08)
[2019-09-07] MEDS: cefTRIAXone 1 GM Vial IVPUSH SCH (21:52)
[2019-09-08] MEDS: Acetaminophen 325 MG Tab PO PRN ×3 (02:54→22:23)
[2019-09-08] MEDS: Diltiazem 125 MG in Sodium Chloride 0.9% 100 ML IV SCH (04:31)
[2019-09-08] MEDS ORDERED: Digoxin 500 MCG/2 ML Amp IVPUSH ONE (04:34)
[2019-09-08] MEDS: Sodium Chloride 0.9% 10 ML Syringe FLUSH PRN ×5 (04:56→20:13)
[2019-09-08] MEDS ORDERED: Metolazone 2.5 MG Tab PO ONE (07:54)
--- NOTE | 2019-09-08 07:59 | PCM.PN ---
- General Info Date of Service: 09/08/19 Subjective Update: The patient's heart rate has been in the 140s also yesterday, and he started Cardizem drip. Overnight she got one IV dose of digoxin,250 mg. She still needing 2 L of oxygen supplementation, and has gained 4 pounds since admission. She has no fever or chills. - Review of Systems General: Reports: Fatigue HEENT: Reports: No Symptoms Pulmonary: Reports: No Symptoms Cardiovascular: Reports: No Symptoms Gastrointestinal: Reports: No Symptoms Genitourinary: Reports: No Symptoms - Patient Data Vitals - Most Recent: Last Vital Signs Temp 98.3 F 09/08/19 06:00 Pulse 115 H 09/08/19 06:00 Resp 19 09/08/19 06:00 BP 158/60 H 09/08/19 06:00 Pulse Ox 93 L 09/08/19 06:00 Weight - Most Recent: 98.021 kg I&O - Last 24 Hours: Intake & Output 09/07/19 09/08/19 09/08/19 22:59 06:59 14:59 Intake Total 355 119 Balance 355 119 Lab Results Last 24 Hours: Laboratory Results - last 24 hr 09/07/19 09/07/19 09/07/19 Range/Units 07:45 07:45 07:45 WBC 7.8 (4.5-12.0) X10-3/uL RBC 3.37 (3.23-5.20) x10(6)uL Hgb 9.5 L (11.5-15.5) g/dL Hct 29.3 L (30.0-51.3) % MCV 86.9 (80-96) fL MCH 28.1 (27.7-33.6) pg MCHC 32.3 (32.2-35.4) g/dL RDW 18.6 H (11.5-15.5) % Plt Count 206 (125-369) X10(3)uL MPV 9.8 (7.4-10.4) fL Neut % (Auto) 65.0 (46-82) % Lymph % (Auto) 19.6 (13-37) % Clinch % (Auto) 9.0 (4-12) % Eos % (Auto) 6 H (1.0-5.0) % Baso % (Auto) 0 (0-2) % Neut # (Auto) 5.1 (1.6-8.3) # Lymph # (Auto) 1.5 (0.6-5.0) # Clinch # (Auto) 0.7 (0.0-1.3) # Eos # (Auto) 0.5 (0.0-0.8) # Baso # (Auto) 0.0 (0.0-0.2) # PT (8.7-11.1) INR (0.89-1.13) Sodium 146 H (135-145) mmol/L Potassium 3.5 (3.5-5.3) mmol/L Chloride 109 D (100-110) mmol/L Carbon Dioxide 25 (21-32) mmol/L BUN 17 (7-18) mg/dL Creatinine 0.8 (0.55-1.02) mg/dL Est Cr Clr Drug Dosing 46.40 mL/min Estimated GFR (MDRD) > 60 (>60) BUN/Creatinine Ratio 21.3 H (9-20) Glucose 129 H (80-116) mg/dL POC Glucose (80-116) mg/dL Calcium 8.8 (8.6-10.2) mg/dL NT-Pro-B Natriuret Pep 5977 H* (<=450) pg/mL 09/07/19 09/07/19 09/07/19 Range/Units 07:45 11:22 17:20 WBC (4.5-12.0) X10-3/uL RBC (3.23-5.20) x10(6)uL Hgb (11.5-15.5) g/dL Hct (30.0-51.3) % MCV (80-96) fL MCH (27.7-33.6) pg MCHC (32.2-35.4) g/dL RDW (11.5-15.5) % Plt Count (125-369) X10(3)uL MPV (7.4-10.4) fL Neut % (Auto) (46-82) % Lymph % (Auto) (13-37) % Clinch % (Auto) (4-12) % Eos % (Auto) (1.0-5.0) % Baso % (Auto) (0-2) % Neut # (Auto) (1.6-8.3) # Lymph # (Auto) (0.6-5.0) # Clinch # (Auto) (0.0-1.3) # Eos # (Auto) (0.0-0.8) # Baso # (Auto) (0.0-0.2) # PT 19.5 H (8.7-11.1) INR 2.02 H (0.89-1.13) Sodium (135-145) mmol/L Potassium (3.5-5.3) mmol/L Chloride (100-110) mmol/L Carbon Dioxide (21-32) mmol/L BUN (7-18) mg/dL Creatinine (0.55-1.02) mg/dL Est Cr Clr Drug Dosing mL/min Estimated GFR (MDRD) (>60) BUN/Creatinine Ratio (9-20) Glucose (80-116) mg/dL POC Glucose 155 H D 163 H (80-116) mg/dL Calcium (8.6-10.2) mg/dL NT-Pro-B Natriuret Pep (<=450) pg/mL 09/08/19 09/08/19 09/08/19 Range/Units 06:10 06:40 06:40 WBC (4.5-12.0) X10-3/uL RBC (3.23-5.20) x10(6)uL Hgb (11.5-15.5) g/dL Hct (30.0-51.3) % MCV (80-96) fL MCH (27.7-33.6) pg MCHC (32.2-35.4) g/dL RDW (11.5-15.5) % Plt Count (125-369) X10(3)uL MPV (7.4-10.4) fL Neut % (Auto) (46-82) % Lymph % (Auto) (13-37) % Clinch % (Auto) (4-12) % Eos % (Auto) (1.0-5.0) % Baso % (Auto) (0-2) % Neut # (Auto) (1.6-8.3) # Lymph # (Auto) (0.6-5.0) # Clinch # (Auto) (0.0-1.3) # Eos # (Auto) (0.0-0.8) # Baso # (Auto) (0.0-0.2) # PT 16.7 H (8.7-11.1) INR 1.73 H (0.89-1.13) Sodium (135-145) mmol/L Potassium (3.5-5.3) mmol/L Chloride (100-110) mmol/L Carbon Dioxide (21-32) mmol/L BUN (7-18) mg/dL Creatinine (0.55-1.02) mg/dL Est Cr Clr Drug Dosing mL/min Estimated GFR (MDRD) (>60) BUN/Creatinine Ratio (9-20) Glucose (80-116) mg/dL POC Glucose 159 H (80-116) mg/dL Calcium (8.6-10.2) mg/dL NT-Pro-B Natriuret Pep 4832 H* (<=450) pg/mL 09/08/19 Range/Units 06:40 WBC (4.5-12.0) X10-3/uL RBC (3.23-5.20) x10(6)uL Hgb (11.5-15.5) g/dL Hct (30.0-51.3) % MCV (80-96) fL MCH (27.7-33.6) pg MCHC (32.2-35.4) g/dL RDW (11.5-15.5) % Plt Count (125-369) X10(3)uL MPV (7.4-10.4) fL Neut % (Auto) (46-82) % Lymph % (Auto) (13-37) % Clinch % (Auto) (4-12) % Eos % (Auto) (1.0-5.0) % Baso % (Auto) (0-2) % Neut # (Auto) (1.6-8.3) # Lymph # (Auto) (0.6-5.0) # Clinch # (Auto) (0.0-1.3) # Eos # (Auto) (0.0-0.8) # Baso # (Auto) (0.0-0.2) # PT (8.7-11.1) INR (0.89-1.13) Sodium 145 (135-145) mmol/L Potassium 3.7 (3.5-5.3) mmol/L Chloride 108 (100-110) mmol/L Carbon Dioxide 26 (21-32) mmol/L BUN 17 (7-18) mg/dL Creatinine 1.1 H (0.55-1.02) mg/dL Est Cr Clr Drug Dosing 33.74 mL/min Estimated GFR (MDRD) 48 L (>60) BUN/Creatinine Ratio 15.5 (9-20) Glucose 168 H (80-116) mg/dL POC Glucose (80-116) mg/dL Calcium 9.1 (8.6-10.2) mg/dL NT-Pro-B Natriuret Pep (<=450) pg/mL Yovany Results Last 24 Hours: Microbiology 09/05/19 19:50 Aerobic Blood Culture - Preliminary Blood - Venous - Lab Draw NO GROWTH AFTER 2 DAYS Anaerobic Blood Culture - Preliminary NO GROWTH AFTER 2 DAYS 09/05/19 19:40 Aerobic Blood Culture - Preliminary Blood - Venous NO GROWTH AFTER 2 DAYS Anaerobic Blood Culture - Preliminary NO GROWTH AFTER 2 DAYS Med Orders - Current: Current Medications Acetaminophen (Tylenol) 650 mg PO Q4H PRN PRN Reason: Pain (mild 1-3) Last Admin: 09/08/19 02:54 Dose: 650 mg Allopurinol (Zyloprim) 200 mg PO DAILY [facility] Last Admin: 09/07/19 08:16 Dose: 200 mg Aspirin (Aspirin) 81 mg PO DAILY [facility] Last Admin: 09/07/19 08:16 Dose: 81 mg Bisacodyl (Dulcolax) 10 mg RECTAL Q3D PRN PRN Reason: Constipation Brimonidine Tartrate (Alphagan 0.2% Ophth Soln) 0 ml EYEBOTH BID [facility] Last Admin: 09/07/19 20:06 Dose: 1 drop Ceftriaxone Sodium (Rocephin) 1 gm IVPUSH Q24H [facility] Last Admin: 09/07/19 21:52 Dose: 1 gm Dextrose (Glutose 15) 15 gm PO ASDIRECTED PRN PRN Reason: Hypoglycemia Duloxetine HCl (Cymbalta) 60 mg PO DAILY [facility] Last Admin: 09/07/19 08:16 Dose: 60 mg Furosemide (Lasix) 20 mg IVPUSH BID [facility] Last Admin: 09/07/19 20:07 Dose: 20 mg Azithromycin 500 mg/ Sodium (Chloride) 250 mls @ 250 mls/hr IV Q24H [facility] Last Admin: 09/07/19 08:08 Dose: 250 mls/hr Diltiazem HCl 125 mg/ Sodium (Chloride) 125 mls @ 5 mls/hr IV TITRATE [facility]; Protocol Last Admin: 09/08/19 04:31 Dose: 15 mg/hr, 15 mls/hr Insulin Human Lispro (Humalog) 0 unit SUBCUT TIDMEALS [facility]; Protocol Last Admin: 09/07/19 17:25 Dose: 1 units Isosorbide Mononitrate (Imdur) 60 mg PO DAILY [facility] Last Admin: 09/07/19 08:16 Dose: 60 mg Latanoprost (Xalatan 0.005% Ophth Soln) 0 ml EYEBOTH BEDTIME [facility] Last Admin: 09/07/19 20:08 Dose: 1 drop Loperamide HCl (Imodium) 2 mg PO ASDIRECTED PRN PRN Reason: Loose Stools Magnesium Hydroxide (Milk Of Magnesia) 30 ml PO DAILY PRN PRN Reason: Constipation Menthol (Perform Pain Reliever) 0 ml TP BID PRN PRN Reason: PAIN Metolazone (Zaroxolyn) 2.5 mg PO ONETIME ONE Stop: 09/08/19 07:55 Metoprolol Succinate (Toprol Xl) 50 mg PO DAILY [facility] Mirtazapine (Remeron) 7.5 mg PO BEDTIME [facility] Last Admin: 09/07/19 20:07 Dose: 7.5 mg Morphine Sulfate (Morphine) 2 mg IVPUSH Q4H PRN PRN Reason: Pain Last Admin: 09/07/19 12:49 Dose: 2 mg Ondansetron HCl (Zofran Odt) 4 mg PO Q6H PRN PRN Reason: Nausea/Vomiting Last Admin: 09/07/19 08:29 Dose: 4 mg Polyethylene Glycol (Miralax) 17 gm PO DAILY PRN PRN Reason: CONSTIPATION Polyethylene Glycol (Miralax) 17 gm PO DAILY [facility] Last Admin: 09/07/19 08:17 Dose: 17 gm Pramipexole Dihydrochloride (Mirapex) 0.125 mg PO BEDTIME PRN PRN Reason: LEG CRAMPS Propylene Glycol (Systane Lubricant) 0 ml EYEBOTH QID [facility] Last Admin: 09/07/19 20:08 Dose: 1 drop Senna/Docusate Sodium (Senna Plus) 1 tab PO BID [facility] Last Admin: 09/07/19 20:08 Dose: 1 tab Sodium Chloride (Briar Nasal Campbell) 0 ml NASBOTH Q2H PRN PRN Reason: Dry Nares Sodium Chloride (Saline Flush) 10 ml FLUSH ASDIRECTED PRN PRN Reason: flush Last Admin: 09/08/19 04:56 Dose: 10 ml Trolamine Salicylate (Aspercreme 10%) 0 gm TOP BID PRN PRN Reason: PAIN Warfarin Sodium (Coumadin) 2.5 mg PO MoTuWeThFrSa@1600 [facility] Last Admin: 09/07/19 15:05 Dose: 2.5 mg Warfarin Sodium (Coumadin) 5 mg PO Neri@1600 [facility] Warfarin Sodium (Coumadin Sliding Scale) 1 each PO ASDIRECTED [facility] Discontinued Medications Digoxin (Lanoxin) 250 mcg IVPUSH ONETIME ONE Stop: 09/08/19 04:35 Last Admin: 09/08/19 04:54 Dose: 250 mcg Diltiazem HCl (Diltiazem) 20 mg IVPUSH ONETIME ONE Stop: 09/07/19 08:51 Last Admin: 09/07/19 09:12 Dose: 20 mg Diltiazem HCl (Diltiazem) 5 mg IVPUSH ONETIME STA Stop: 09/07/19 12:24 Last Admin: 09/07/19 12:47 Dose: 5 mg Diltiazem HCl (Diltiazem) 5 mg IVPUSH ONETIME STA Stop: 09/07/19 13:42 Last Admin: 09/07/19 14:54 Dose: 5 mg Furosemide (Lasix) 40 mg IVPUSH NOW ONE Stop: 09/06/19 08:44 Last Admin: 09/06/19 09:28 Dose: Not Given Ceftriaxone Sodium 1 gm/ (Sodium Chloride) 50 mls @ 200 mls/hr IV Q24H [facility] Last Admin: 09/05/19 23:00 Dose: 200 mls/hr Sodium Chloride (Normal Saline) 1,000 mls @ 125 mls/hr IV ASDIRECTED [facility] Last Admin: 09/06/19 08:16 Dose: 125 mls/hr Vancomycin HCl 1.5 gm/ Premix 300 mls @ 300 mls/hr IV ASDIRECTED [facility] Last Admin: 09/06/19 01:11 Dose: 300 mls/hr - Exam Quality Assessment: Supplemental Oxygen General: Alert Neck: Supple Lungs: Crackles, Rales Cardiovascular: Irregular Rhythm, Tachycardia GI/Abdominal Exam: Soft, Non-Tender Extremities: Pedal Edema Skin: Warm Psy/Mental Status: Alert, Depressed Sepsis Event Note - Evaluation Sepsis Screening Result: No Definite Risk - Focused Exam Vital Signs: Vital Signs Temp Pulse Pulse Resp BP Pulse Ox Pulse Ox 09/08/19 06:00 98.3 F 115 H 19 158/60 H 93 L 09/08/19 05:00 112 H 20 123/52 L 93 L 09/08/19 04:54 128 H 09/08/19 04:00 99.1 F 126 H 20 144/60 H 93 L 09/08/19 03:00 127 H 20 127/68 91 L 09/08/19 02:00 99.9 F 112 H 18 116/63 92 L 09/08/19 01:00 104 H 18 126/49 L 93 L 09/08/19 00:00 99.8 F 108 H 18 138/54 L 93 L 09/07/19 23:07 18 120/55 L 91 L 09/07/19 22:00 100.0 F 112 H 18 114/54 L 90 L 09/07/19 21:00 117 H 18 118/49 L 93 L 09/07/19 20:37 93 L 09/07/19 20:00 99.8 F 121 H 18 132/57 L 93 L Date Exam was Performed: 09/08/19 Time Exam was Performed: 07:55 - Problem List & Annotations (1) Pneumonia SNOMED Code(s): 025541288 Code(s): J18.9 - PNEUMONIA, UNSPECIFIED ORGANISM Status: Acute Current Visit: Yes (2) Altered mental state SNOMED Code(s): 919813305 Code(s): R41.82 - ALTERED MENTAL STATUS, UNSPECIFIED Status: Acute Current Visit: Yes (3) Afib SNOMED Code(s): 17717998 Code(s): I48.91 - UNSPECIFIED ATRIAL FIBRILLATION Status: Acute Current Visit: Yes Qualifiers: Atrial fibrillation type: other persistent Qualified Code(s): I48.19 - Other persistent atrial fibrillation (4) HTN (hypertension) SNOMED Code(s): 56315819 Code(s): I10 - ESSENTIAL (PRIMARY) HYPERTENSION Status: Acute Current Visit: Yes Qualifiers: Hypertension type: essential hypertension Qualified Code(s): I10 - Essential (primary) hypertension (5) Palliative care encounter SNOMED Code(s): 851657757 Code(s): Z51.5 - ENCOUNTER FOR PALLIATIVE CARE Status: Acute Current Visit: Yes (6) Obesity SNOMED Code(s): 611686200, 274467612 Code(s): E66.9 - OBESITY, UNSPECIFIED Status: Acute Current Visit: Yes (7) CAD (coronary artery disease) SNOMED Code(s): 40717998 Code(s): I25.10 - ATHSCL HEART DISEASE OF [place] CORONARY ARTERY W/O ANG PCTRS Status: Acute Current Visit: Yes (8) Diabetes type 2, controlled SNOMED Code(s): 12919055, 341727396 Code(s): E11.9 - TYPE 2 DIABETES MELLITUS WITHOUT COMPLICATIONS Status: Acute Current Visit: Yes (9) Spinal stenosis SNOMED Code(s): 50785065 Code(s): M48.00 - SPINAL STENOSIS, SITE UNSPECIFIED Status: Acute Current Visit: Yes (10) CHF (congestive heart failure) SNOMED Code(s): 78234966 Code(s): I50.9 - HEART FAILURE, UNSPECIFIED Status: Acute Current Visit: No - Problem List Review Problem List Initiated/Reviewed/Updated: Yes - My Orders Last 24 Hours: My Active Orders 09/07/19 09:00 Furosemide [Lasix] 20 mg IVPUSH BID 09/07/19 11:15 Diltiazem 125 mg Sodium Chloride 0.9% [Normal Saline] 100 ml IV TITRATE 09/07/19 11:40 Sodium Chloride 0.9% [Saline Flush] 10 ml FLUSH ASDIRECTED PRN 09/07/19 12:16 Morphine 2 mg IVPUSH Q4H PRN 09/08/19 02:36 Acetaminophen [Tylenol] 650 mg PO Q4H PRN 09/08/19 06:40 CBC WITH AUTO DIFF [HEME] AM 09/08/19 07:54 Chest 1V Frontal [CR] Routine metOLazone [Zaroxolyn] 2.5 mg PO ONETIME ONE 09/08/19 09:00 Metoprolol Succinate [Toprol XL] 50 mg PO DAILY 09/09/19 05:11 BASIC METABOLIC PANEL,BMP [CHEM] AM CBC WITH AUTO DIFF [HEME] AM PRO B-TYPE NATRIUR PEPT,BNPPRO [CHEM] DAILY 09/12/19 16:00 Warfarin [Coumadin] 5 mg PO Neri@1600 - Plan Plan:: Heart rate is still uncontrolled. I will start on a beta astrid, Toprol. Continued IV Cardizem a few switched to oral as well. I've given 1 dose of Zaroxolyn to augment daily diureses. Repeat CXR today,and labs in the morning, continue oxygen supplementation.
[2019-09-08] MEDS: Brimonidine 0.2% Ophth Soln 5 ML Bottle EYEBOTH SCH ×2 (08:19→20:10)
[2019-09-08] MEDS: Azithromycin 500 MG in Sodium Chloride 0.9% 250 ML IV SCH (08:19)
[2019-09-08] MEDS: Aspirin 81 MG Tab.Chew PO SCH (08:20)
[2019-09-08] MEDS: DULoxetine 60 MG Cap PO SCH (08:20)
[2019-09-08] MEDS: Isosorbide Mononitrate 60 MG Tab.ER PO SCH (08:21)
[2019-09-08] MEDS: Polyethylene Glycol 3350 Powder 17 GM Packet PO SCH (08:22)
[2019-09-08] MEDS: Furosemide 20 MG/2 ML VIAL IVPUSH SCH ×2 (08:22→20:11)
[2019-09-08] MEDS: Allopurinol 100 MG Tab PO SCH (08:23)
[2019-09-08] MEDS: Metoprolol Succinate 50 MG Tab.ER PO SCH (08:23)
[2019-09-08] MEDS: PEG 400/Propylene Glycol Ophth Soln 15 ML Bottle EYEBOTH SCH ×4 (08:23→20:12)
[2019-09-08] MEDS: Insulin Lispro 100 Unit/ML 3 ML KwikPen SUBCUT SCH ×3 (08:31→18:02)
--- NOTE | 2019-09-08 09:58 | CR ---
INDICATION: Short of breath. An AP upright view of the chest was obtained 08/17 and compared with 09/05/19 and 09/02/19. CHEST, ONE VIEW: Post median sternotomy change with heart normal in size or at the upper limits of normal in size. The aorta is tortuous with calcification in the arch. Overlying EKG leads are noted. Heavy markings are noted at the lung bases, left much greater than right, with suggestion of blunting of the costophrenic angle on the left compatible with pleural effusion. Findings may be on the basis of pneumonia and pleuritis - bibasilar - left greater than right in severity. Pulmonary vascular congestion has markedly decreased compared with the previous study. MTDD
[2019-09-08] MEDS: Diltiazem 180 MG Cap.CD PO SCH (11:16)
[2019-09-08] MEDS: Warfarin 2.5 MG Tab PO SCH (16:18)
[2019-09-08] MEDS: Mirtazapine 15 MG Tab PO SCH (20:11)
[2019-09-08] MEDS: Latanoprost 0.005% Ophth Soln 2.5 ML Bottle EYEBOTH SCH (20:12)
[2019-09-08] MEDS: cefTRIAXone 1 GM Vial IVPUSH SCH (21:03)
[2019-09-09] MEDS: Furosemide 20 MG/2 ML VIAL IVPUSH SCH ×2 (08:28→20:10)
[2019-09-09] MEDS: PEG 400/Propylene Glycol Ophth Soln 15 ML Bottle EYEBOTH SCH ×4 (08:28→20:04)
[2019-09-09] MEDS: Polyethylene Glycol 3350 Powder 17 GM Packet PO SCH (08:29)
[2019-09-09] MEDS: Brimonidine 0.2% Ophth Soln 5 ML Bottle EYEBOTH SCH ×2 (08:29→21:30)
[2019-09-09] MEDS: Allopurinol 100 MG Tab PO SCH (08:30)
[2019-09-09] MEDS: Isosorbide Mononitrate 60 MG Tab.ER PO SCH (08:30)
[2019-09-09] MEDS: DULoxetine 60 MG Cap PO SCH (08:30)
[2019-09-09] MEDS: Metoprolol Succinate 50 MG Tab.ER PO SCH (08:30)
[2019-09-09] MEDS: Aspirin 81 MG Tab.Chew PO SCH (08:31)
[2019-09-09] MEDS: Diltiazem 180 MG Cap.CD PO SCH (08:31)
--- NOTE | 2019-09-09 09:15 | PCM.PN ---
- General Info Date of Service: 09/09/19 Subjective Update: Landy has no specific complaints this morning. She still needing oxygen supplementation, and a chest x-ray done yesterday showed continued pleural effusion. She is more alert and heart rate has been well-controlled when she is at rest.No fever - Review of Systems Pulmonary: Reports: Shortness of Breath Cardiovascular: Reports: No Symptoms Gastrointestinal: Reports: No Symptoms Genitourinary: Reports: No Symptoms - Patient Data Vitals - Most Recent: Last Vital Signs Temp 98.3 F 09/09/19 03:55 Pulse 117 H 09/09/19 08:30 Resp 18 09/09/19 03:55 BP 124/82 09/09/19 08:30 Pulse Ox 96 09/09/19 03:57 Weight - Most Recent: 100.017 kg Lab Results Last 24 Hours: Laboratory Results - last 24 hr 09/08/19 09/08/19 09/09/19 Range/Units 11:13 17:25 06:51 WBC (4.5-12.0) X10-3/uL RBC (3.23-5.20) x10(6)uL Hgb (11.5-15.5) g/dL Hct (30.0-51.3) % MCV (80-96) fL MCH (27.7-33.6) pg MCHC (32.2-35.4) g/dL RDW (11.5-15.5) % Plt Count (125-369) X10(3)uL MPV (7.4-10.4) fL Neut % (Auto) (46-82) % Lymph % (Auto) (13-37) % [place] % (Auto) (4-12) % Eos % (Auto) (1.0-5.0) % Baso % (Auto) (0-2) % Neut # (Auto) (1.6-8.3) # Lymph # (Auto) (0.6-5.0) # [place] # (Auto) (0.0-1.3) # Eos # (Auto) (0.0-0.8) # Baso # (Auto) (0.0-0.2) # PT (8.7-11.1) INR (0.89-1.13) Sodium (135-145) mmol/L Potassium (3.5-5.3) mmol/L Chloride (100-110) mmol/L Carbon Dioxide (21-32) mmol/L BUN (7-18) mg/dL Creatinine (0.55-1.02) mg/dL Est Cr Clr Drug Dosing mL/min Estimated GFR (MDRD) (>60) BUN/Creatinine Ratio (9-20) Glucose (80-116) mg/dL POC Glucose 236 H 166 H 154 H (80-116) mg/dL Calcium (8.6-10.2) mg/dL NT-Pro-B Natriuret Pep (<=450) pg/mL 09/09/19 09/09/19 09/09/19 Range/Units 08:24 08:24 08:24 WBC 7.2 (4.5-12.0) X10-3/uL RBC 3.35 (3.23-5.20) x10(6)uL Hgb 9.3 L (11.5-15.5) g/dL Hct 29.0 L (30.0-51.3) % MCV 86.4 (80-96) fL MCH 27.8 (27.7-33.6) pg MCHC 32.2 (32.2-35.4) g/dL RDW 18.4 H (11.5-15.5) % Plt Count 238 (125-369) X10(3)uL MPV 9.3 (7.4-10.4) fL Neut % (Auto) 64.7 (46-82) % Lymph % (Auto) 21.1 (13-37) % [place] % (Auto) 6.6 (4-12) % Eos % (Auto) 8 H (1.0-5.0) % Baso % (Auto) 0 (0-2) % Neut # (Auto) 4.7 (1.6-8.3) # Lymph # (Auto) 1.5 (0.6-5.0) # [place] # (Auto) 0.5 (0.0-1.3) # Eos # (Auto) 0.5 (0.0-0.8) # Baso # (Auto) 0.0 (0.0-0.2) # PT (8.7-11.1) INR (0.89-1.13) Sodium 144 (135-145) mmol/L Potassium 3.5 (3.5-5.3) mmol/L Chloride 107 (100-110) mmol/L Carbon Dioxide 25 (21-32) mmol/L BUN 17 (7-18) mg/dL Creatinine 1.0 (0.55-1.02) mg/dL Est Cr Clr Drug Dosing 37.12 mL/min Estimated GFR (MDRD) 53 L (>60) BUN/Creatinine Ratio 17.0 (9-20) Glucose 154 H (80-116) mg/dL POC Glucose (80-116) mg/dL Calcium 9.1 (8.6-10.2) mg/dL NT-Pro-B Natriuret Pep 5701 H* (<=450) pg/mL 09/09/19 Range/Units 08:24 WBC (4.5-12.0) X10-3/uL RBC (3.23-5.20) x10(6)uL Hgb (11.5-15.5) g/dL Hct (30.0-51.3) % MCV (80-96) fL MCH (27.7-33.6) pg MCHC (32.2-35.4) g/dL RDW (11.5-15.5) % Plt Count (125-369) X10(3)uL MPV (7.4-10.4) fL Neut % (Auto) (46-82) % Lymph % (Auto) (13-37) % [place] % (Auto) (4-12) % Eos % (Auto) (1.0-5.0) % Baso % (Auto) (0-2) % Neut # (Auto) (1.6-8.3) # Lymph # (Auto) (0.6-5.0) # [place] # (Auto) (0.0-1.3) # Eos # (Auto) (0.0-0.8) # Baso # (Auto) (0.0-0.2) # PT 19.7 H (8.7-11.1) INR 2.04 H (0.89-1.13) Sodium (135-145) mmol/L Potassium (3.5-5.3) mmol/L Chloride (100-110) mmol/L Carbon Dioxide (21-32) mmol/L BUN (7-18) mg/dL Creatinine (0.55-1.02) mg/dL Est Cr Clr Drug Dosing mL/min Estimated GFR (MDRD) (>60) BUN/Creatinine Ratio (9-20) Glucose (80-116) mg/dL POC Glucose (80-116) mg/dL Calcium (8.6-10.2) mg/dL NT-Pro-B Natriuret Pep (<=450) pg/mL Yovany Results Last 24 Hours: Microbiology 09/05/19 19:50 Aerobic Blood Culture - Preliminary Blood - Venous - Lab Draw NO GROWTH AFTER 3 DAYS Anaerobic Blood Culture - Preliminary NO GROWTH AFTER 3 DAYS 09/05/19 19:40 Aerobic Blood Culture - Preliminary Blood - Venous NO GROWTH AFTER 3 DAYS Anaerobic Blood Culture - Preliminary NO GROWTH AFTER 3 DAYS Med Orders - Current: Current Medications Acetaminophen (Tylenol) 650 mg PO Q4H PRN PRN Reason: Pain (mild 1-3) Last Admin: 09/08/19 22:23 Dose: 650 mg Allopurinol (Zyloprim) 200 mg PO DAILY [facility] Last Admin: 09/09/19 08:30 Dose: 200 mg Aspirin (Aspirin) 81 mg PO DAILY [facility] Last Admin: 09/09/19 08:31 Dose: 81 mg Bisacodyl (Dulcolax) 10 mg RECTAL Q3D PRN PRN Reason: Constipation Brimonidine Tartrate (Alphagan 0.2% Ophth Soln) 0 ml EYEBOTH BID [facility] Last Admin: 09/09/19 08:29 Dose: 1 drop Ceftriaxone Sodium (Rocephin) 1 gm IVPUSH Q24H [facility] Last Admin: 09/08/19 21:03 Dose: 1 gm Dextrose (Glutose 15) 15 gm PO ASDIRECTED PRN PRN Reason: Hypoglycemia Diltiazem HCl (Cardizem Cd) 180 mg PO DAILY [facility] Last Admin: 09/09/19 08:31 Dose: 180 mg Duloxetine HCl (Cymbalta) 60 mg PO DAILY [facility] Last Admin: 09/09/19 08:30 Dose: 60 mg Furosemide (Lasix) 20 mg IVPUSH BID [facility] Last Admin: 09/09/19 08:28 Dose: 20 mg Azithromycin 500 mg/ Sodium (Chloride) 250 mls @ 250 mls/hr IV Q24H [facility] Last Admin: 09/08/19 08:19 Dose: 250 mls/hr Insulin Human Lispro (Humalog) 0 unit SUBCUT TIDMEALS [facility]; Protocol Last Admin: 09/08/19 18:02 Dose: 1 units Latanoprost (Xalatan 0.005% Ophth Soln) 0 ml EYEBOTH BEDTIME [facility] Last Admin: 09/08/19 20:12 Dose: 1 drop Loperamide HCl (Imodium) 2 mg PO ASDIRECTED PRN PRN Reason: Loose Stools Magnesium Hydroxide (Milk Of Magnesia) 30 ml PO DAILY PRN PRN Reason: Constipation Menthol (Perform Pain Reliever) 0 ml TP BID PRN PRN Reason: PAIN Metoprolol Succinate (Toprol Xl) 100 mg PO DAILY [facility] Mirtazapine (Remeron) 7.5 mg PO BEDTIME [facility] Last Admin: 09/08/19 20:11 Dose: 7.5 mg Morphine Sulfate (Morphine) 2 mg IVPUSH Q4H PRN PRN Reason: Pain Last Admin: 09/07/19 12:49 Dose: 2 mg Ondansetron HCl (Zofran Odt) 4 mg PO Q6H PRN PRN Reason: Nausea/Vomiting Last Admin: 09/07/19 08:29 Dose: 4 mg Polyethylene Glycol (Miralax) 17 gm PO DAILY PRN PRN Reason: CONSTIPATION Polyethylene Glycol (Miralax) 17 gm PO DAILY [facility] Last Admin: 09/09/19 08:29 Dose: 17 gm Pramipexole Dihydrochloride (Mirapex) 0.125 mg PO BEDTIME PRN PRN Reason: LEG CRAMPS Propylene Glycol (Systane Lubricant) 0 ml EYEBOTH QID [facility] Last Admin: 09/09/19 08:28 Dose: 1 drop Senna/Docusate Sodium (Senna Plus) 1 tab PO BID [facility] Last Admin: 09/09/19 08:30 Dose: 1 tab Sodium Chloride ([place] Nasal [place]) 0 ml NASBOTH Q2H PRN PRN Reason: Dry Nares Sodium Chloride (Saline Flush) 10 ml FLUSH ASDIRECTED PRN PRN Reason: flush Last Admin: 09/08/19 20:13 Dose: 10 ml Trolamine Salicylate (Aspercreme 10%) 0 gm TOP BID PRN PRN Reason: PAIN Warfarin Sodium (Coumadin) 2.5 mg PO [id number]@1600 [facility] Last Admin: 09/08/19 16:18 Dose: 2.5 mg Warfarin Sodium (Coumadin) 5 mg PO Neri@1600 [facility] Warfarin Sodium (Coumadin Sliding Scale) 1 each PO ASDIRECTED [facility] Discontinued Medications Digoxin (Lanoxin) 250 mcg IVPUSH ONETIME ONE Stop: 09/08/19 04:35 Last Admin: 09/08/19 04:54 Dose: 250 mcg Diltiazem HCl (Diltiazem) 20 mg IVPUSH ONETIME ONE Stop: 09/07/19 08:51 Last Admin: 09/07/19 09:12 Dose: 20 mg Diltiazem HCl (Diltiazem) 5 mg IVPUSH ONETIME STA Stop: 09/07/19 12:24 Last Admin: 09/07/19 12:47 Dose: 5 mg Diltiazem HCl (Diltiazem) 5 mg IVPUSH ONETIME STA Stop: 09/07/19 13:42 Last Admin: 09/07/19 14:54 Dose: 5 mg Furosemide (Lasix) 40 mg IVPUSH NOW ONE Stop: 09/06/19 08:44 Last Admin: 09/06/19 09:28 Dose: Not Given Ceftriaxone Sodium 1 gm/ (Sodium Chloride) 50 mls @ 200 mls/hr IV Q24H [facility] Last Admin: 09/05/19 23:00 Dose: 200 mls/hr Sodium Chloride (Normal Saline) 1,000 mls @ 125 mls/hr IV ASDIRECTED [facility] Last Admin: 09/06/19 08:16 Dose: 125 mls/hr Vancomycin HCl 1.5 gm/ Premix 300 mls @ 300 mls/hr IV ASDIRECTED [facility] Last Admin: 09/06/19 01:11 Dose: 300 mls/hr Diltiazem HCl 125 mg/ Sodium (Chloride) 125 mls @ 5 mls/hr IV TITRATE [facility]; Protocol Last Titration: 09/08/19 11:37 Dose: 5 mg/hr, 5 mls/hr Isosorbide Mononitrate (Imdur) 60 mg PO DAILY [facility] Last Admin: 09/09/19 08:30 Dose: 60 mg Metolazone (Zaroxolyn) 2.5 mg PO ONETIME ONE Stop: 09/08/19 07:55 Last Admin: 09/08/19 08:19 Dose: 2.5 mg Metoprolol Succinate (Toprol Xl) 50 mg PO DAILY [place] Last Admin: 09/09/19 08:30 Dose: 50 mg - Exam Quality Assessment: Supplemental Oxygen General: Alert, Oriented Neck: Supple Lungs: Crackles, Rales Cardiovascular: Irregular Rhythm, Tachycardia Extremities: Pedal Edema Skin: Warm Sepsis Event Note - Evaluation Sepsis Screening Result: No Definite Risk - Focused Exam Vital Signs: Vital Signs Temp Pulse Pulse Resp BP BP Pulse Ox 09/09/19 08:30 117 H 124/82 09/09/19 03:57 09/09/19 03:55 98.3 F 104 H 18 129/72 96 09/08/19 23:54 99.0 F 99 19 95/64 93 L 09/08/19 22:00 99.1 F 94 18 124/66 94 L Pulse Ox 09/09/19 08:30 09/09/19 03:57 96 09/09/19 03:55 09/08/19 23:54 09/08/19 22:00 Date Exam was Performed: 09/09/19 Time Exam was Performed: 09:13 - Problem List & Annotations (1) Pneumonia SNOMED Code(s): 164757606 Code(s): J18.9 - PNEUMONIA, UNSPECIFIED ORGANISM Status: Acute Current Visit: Yes (2) Altered mental state SNOMED Code(s): 496454879 Code(s): R41.82 - ALTERED MENTAL STATUS, UNSPECIFIED Status: Acute Current Visit: Yes (3) Afib SNOMED Code(s): 27130965 Code(s): I48.91 - UNSPECIFIED ATRIAL FIBRILLATION Status: Acute Current Visit: Yes Qualifiers: Atrial fibrillation type: other persistent Qualified Code(s): I48.19 - Other persistent atrial fibrillation (4) HTN (hypertension) SNOMED Code(s): 54508587 Code(s): I10 - ESSENTIAL (PRIMARY) HYPERTENSION Status: Acute Current Visit: Yes Qualifiers: Hypertension type: essential hypertension Qualified Code(s): I10 - Essential (primary) hypertension (5) Palliative care encounter SNOMED Code(s): 090975256 Code(s): Z51.5 - ENCOUNTER FOR PALLIATIVE CARE Status: Acute Current Visit: Yes (6) Obesity SNOMED Code(s): 620199952, 126411497 Code(s): E66.9 - OBESITY, UNSPECIFIED Status: Acute Current Visit: Yes (7) CAD (coronary artery disease) SNOMED Code(s): 60859661 Code(s): I25.10 - ATHSCL HEART DISEASE OF [place] CORONARY ARTERY W/O ANG PCTRS Status: Acute Current Visit: Yes (8) Diabetes type 2, controlled SNOMED Code(s): 26609761, 969705233 Code(s): E11.9 - TYPE 2 DIABETES MELLITUS WITHOUT COMPLICATIONS Status: Acute Current Visit: Yes (9) Spinal stenosis SNOMED Code(s): 44987338 Code(s): M48.00 - SPINAL STENOSIS, SITE UNSPECIFIED Status: Acute Current Visit: Yes (10) CHF (congestive heart failure) SNOMED Code(s): 79682600 Code(s): I50.9 - HEART FAILURE, UNSPECIFIED Status: Acute Current Visit: No - Problem List Review Problem List Initiated/Reviewed/Updated: Yes - My Orders Last 24 Hours: My Active Orders 09/08/19 11:15 Diltiazem [Cardizem CD] 180 mg PO DAILY 09/09/19 09:15 Metoprolol Succinate [Toprol XL] 100 mg PO DAILY 09/10/19 07:40 INR,PT,PROTHROMBIN TIME [COAG] DAILY 09/11/19 07:40 INR,PT,PROTHROMBIN TIME [COAG] DAILY 09/12/19 07:40 INR,PT,PROTHROMBIN TIME [COAG] DAILY 09/12/19 16:00 Warfarin [Coumadin] 5 mg PO Neri@1600 09/13/19 07:40 INR,PT,PROTHROMBIN TIME [COAG] DAILY - Plan Plan:: I will increase Toprol 200 mg daily continue Cardizem and Lasix. I feel that tomorrow she might be related to be discharged back to the alf oxygen, and oral antibiotics and diuretics.
[2019-09-09] MEDS: Insulin Lispro 100 Unit/ML 3 ML KwikPen SUBCUT SCH ×3 (09:18→17:23)
[2019-09-09] MEDS: Azithromycin 500 MG in Sodium Chloride 0.9% 250 ML IV SCH (09:18)
[2019-09-09] MEDS ORDERED: Metoprolol Succinate 50 MG Tab.ER PO ONE (09:30)
[2019-09-09] MEDS: Warfarin 2.5 MG Tab PO SCH (16:48)
[2019-09-09] MEDS: Mirtazapine 15 MG Tab PO SCH (20:09)
[2019-09-09] MEDS: Sodium Chloride 0.9% 10 ML Syringe FLUSH PRN (20:15)
[2019-09-09] MEDS: Latanoprost 0.005% Ophth Soln 2.5 ML Bottle EYEBOTH SCH (21:28)
[2019-09-09] MEDS: cefTRIAXone 1 GM Vial IVPUSH SCH (21:29)
[2019-09-09] MEDS ORDERED: Metoprolol Tartrate 50 MG Tab PO ONE (21:49)
[2019-09-10] MEDS: Aspirin 81 MG Tab.Chew PO SCH (08:26)
[2019-09-10] MEDS: Diltiazem 180 MG Cap.CD PO SCH (08:26)
[2019-09-10] MEDS: Allopurinol 100 MG Tab PO SCH (08:26)
[2019-09-10] MEDS: DULoxetine 60 MG Cap PO SCH (08:26)
[2019-09-10] MEDS: Polyethylene Glycol 3350 Powder 17 GM Packet PO SCH (08:27)
[2019-09-10] MEDS: PEG 400/Propylene Glycol Ophth Soln 15 ML Bottle EYEBOTH SCH (08:28)
[2019-09-10] MEDS: Brimonidine 0.2% Ophth Soln 5 ML Bottle EYEBOTH SCH (08:29)
[2019-09-10] MEDS: Insulin Lispro 100 Unit/ML 3 ML KwikPen SUBCUT SCH (08:30)
[2019-09-10] MEDS: Furosemide 20 MG/2 ML VIAL IVPUSH SCH (09:00)
[2019-09-10] MEDS ORDERED: Metoprolol Succinate 100 MG Tab.ER PO SCH (09:00)
[2019-09-10] MEDS: Azithromycin 500 MG in Sodium Chloride 0.9% 250 ML IV SCH (09:05)
--- NOTE | 2019-09-10 13:16 | PCM.DCSUM1 ---
Discharge Summary - Hospital Course HPI Initial Comments: Landy is from the alf who came in with fever, hypoxia weakness and alteration of mental status. The symptoms were fairly sudden onset, and temperature maximum reported about 101.5F. She's not able to give much history. Past record indicates a history of cholelithiasis present cholecystectomy, chronic lumbar stenosis, atrial fibrillation on anticoagulation , coronary disease. Diagnosis: Stroke: No - Discharge Data Discharge Date: 09/10/19 Discharge Disposition: DC/Tfer to SNF 03 Condition: Good - Referral to Home Health Primary Care Physician: Axel Davis MD - Discharge Diagnosis/Problem(s) (1) Afib SNOMED Code(s): 51274934 ICD Code: I48.91 - UNSPECIFIED ATRIAL FIBRILLATION Status: Acute Current Visit: Yes Qualifiers: Atrial fibrillation type: other persistent Qualified Code(s): I48.19 - Other persistent atrial fibrillation (2) CAD (coronary artery disease) SNOMED Code(s): 71589775 ICD Code: I25.10 - ATHSCL HEART DISEASE OF THE [place] CORONARY ARTERY W/O ANG PCTRS Status: Acute Current Visit: Yes (3) Diabetes type 2, controlled SNOMED Code(s): 20428688, 156950205 ICD Code: E11.9 - TYPE 2 DIABETES MELLITUS WITHOUT COMPLICATIONS Status: Acute Current Visit: Yes (4) HTN (hypertension) SNOMED Code(s): 62821506 ICD Code: I10 - ESSENTIAL (PRIMARY) HYPERTENSION Status: Acute Current Visit: Yes Qualifiers: Hypertension type: essential hypertension Qualified Code(s): I10 - Essential (primary) hypertension (5) Obesity SNOMED Code(s): 806882254, 228460349 ICD Code: E66.9 - OBESITY, UNSPECIFIED Status: Acute Current Visit: Yes (6) Palliative care encounter SNOMED Code(s): 298971936 ICD Code: Z51.5 - ENCOUNTER FOR PALLIATIVE CARE Status: Acute Current Visit: Yes (7) Pneumonia SNOMED Code(s): 044505984 ICD Code: J18.9 - PNEUMONIA, UNSPECIFIED ORGANISM Status: Acute Current Visit: Yes (8) Spinal stenosis SNOMED Code(s): 42450998 ICD Code: M48.00 - SPINAL STENOSIS, SITE UNSPECIFIED Status: Acute Current Visit: Yes (9) CHF (congestive heart failure) SNOMED Code(s): 58036850 ICD Code: I50.9 - HEART FAILURE, UNSPECIFIED Status: Acute Current Visit : No (10) Peripheral edema SNOMED Code(s): 883415238 ICD Code: R60.9 - EDEMA, UNSPECIFIED Status: Acute Current Visit: No - Patient Summary/Data Hospital Course: Admitted from [facility] for fever, pneumonia, atrial fibrillation with RVR and altered mental status from baseline. She was started on Rocephin and Azithromycin, received 4 doses of Rocephin and completed Azithromycin 5 day course. Will go back to alf on Cefdinir 300 mg bid for 6 more days to complete 10 day course. She was started on Cardizem drip for her atrial fibrillation with RVR, rates in the 120s. She was switched to oral Cardizem 180 mg daily. Her Metoprolol dose was decreased to 50 mg daily but then heart rate went back up to 120s so she received another 50 mg dose yesterday evening. Her home dose is Metoprolol 50 mg bid. jail staff did have to come over one evening to help give medications as patient was so agitated and was refusing hospital staff to get anywhere near her. She also had a vasovagal episode on the toilet last night after having a large bowel movement , recovered without intervention required. WBC was normal on 09/09 and Cr and potassium corrected on 09/09. - Patient Instructions Diet: Heart Healthy Diet Notify Provider of: Fever, Increased Pain, Nausea and/or Vomiting Other/Special Instructions: Follow up with PCP in [place] in 1-2 weeks. - Discharge Plan *PRESCRIPTION DRUG MONITORING PROGRAM REVIEWED*: Not Applicable *COPY OF PRESCRIPTION DRUG MONITORING REPORT IN PATIENT JANIYA: No Prescriptions/Med Rec: Cefdinir 300 mg PO BID 6 Days #12 capsule Diltiazem [Dilacor XR] 180 mg PO DAILY #30 cap.er Home Medications: Home Meds Acetaminophen 650 mg PO Q4H PRN 08/27/19 [History] Acetaminophen [Tylenol Extra Strength] 1,000 mg PO BID 08/27/19 [History] Acetaminophen with Codeine [Tylenol with Codeine #3 Tablet] 2 tab PO BID PRN [History] Allopurinol [Zyloprim] 200 mg PO DAILY 08/27/19 [History] Bisacodyl [Dulcolax] 10 mg RECTAL Q3D PRN 08/27/19 [History] Brimonidine [Alphagan 0.2% Ophth Soln] 1 drop EYEBOTH BID 08/27/19 [History] DULoxetine [Cymbalta] 60 mg PO DAILY 08/27/19 [History] Isosorbide Mononitrate [Isosorbide Mononitrate ER] 60 mg PO DAILY 08/27/19 [ History] Loperamide HCl [Imodium A-D] 2 mg PO ASDIRECTED PRN 08/27/19 [History] Menthol [Icy Hot Pain Relieving] 1 applic TOP BID PRN 08/27/19 [History] Metoprolol Succinate [Toprol Xl] 50 mg PO BID 08/27/19 [History] Mirtazapine [Remeron] 7.5 mg PO BEDTIME 08/27/19 [History] Ondansetron [Zofran ODT] 4 mg PO TID PRN 08/27/19 [History] Polyethylene Glycol 3350 [MiraLAX] 17 gm PO DAILY 08/27/19 [History] Pramipexole Di-HCl [Pramipexole Dihydrochloride] 0.125 mg PO BEDTIME PRN [History] Propylene Glycol/PEG 400/Pf [Systane Ultra 0.4-0.3% Eye Drp] 1 drop EYEBOTH QID 08/27/19 [History] Sennosides/Docusate Sodium [Senokot-S Tablet] 1 tab PO BID 08/27/19 [History] Sodium Chloride 0.65% [[place] Saline] 2 spray NASBOTH Q2H PRN 08/27/19 [History] glipiZIDE [Glipizide ER] 10 mg PO DAILY 08/27/19 [History] Nitroglycerin [Nitrostat] 0.4 mg SL Q5M PRN 09/02/19 [History] Aspirin [Ecotrin EC] 81 mg PO DAILY 09/06/19 [History] Dextrose [Glucose Gel] 1 unit PO ASDIRECTED PRN 09/06/19 [History] EPINEPHrine [Epipen] 0.3 mg IM ASDIRECTED PRN 09/06/19 [History] Eucalyptus Oil/Menthol/Camphor [Vicks Vaporub Ointment] 1 applic TOP ASDIRECTED PRN 09/06/19 [History] Eucalyptus/Menthol [Cough Drops] 1 ea MM ASDIRECTED PRN 09/06/19 [History] Furosemide [Lasix] 40 mg PO DAILY 09/06/19 [History] Glucagon,Human Recombinant [Glucagen] 1 mg IM ASDIRECTED PRN 09/06/19 [History] Latanoprost [Xalatan] 1 drop EYEBOTH BEDTIME 09/06/19 [History] Magnesium Hydroxide [Milk of Magnesia] 30 ml PO DAILY PRN 09/06/19 [History] Polyethylene Glycol 3350 [MiraLAX] 17 gm PO DAILY PRN 09/06/19 [History] Trolamine Salicylate [[place]o-Micin] 1 applic TOP BID PRN 09/06/19 [History] Warfarin [Coumadin] 2.5 mg PO MOTUWETHFRSA 09/06/19 [History] atorvaSTATin Calcium [Lipitor] 20 mg PO BEDTIME 09/06/19 [History] guaiFENesin [Robitussin] 10 ml PO Q4H PRN 09/06/19 [History] Cefdinir 300 mg PO BID 6 Days #12 capsule 09/10/19 [Rx] Diltiazem [Dilacor XR] 180 mg PO DAILY #30 cap.er 09/10/19 [Rx] Warfarin [Coumadin] 5 mg PO NERI 09/10/19 [History] Patient Handouts: Deep Vein Thrombosis Forms: ED Department Discharge Referrals: PCP,None [Ordering Only Provider] - - Discharge Summary/Plan Comment DC Time >30 min.: Yes - General Info Date of Service: 09/10/19 - Review of Systems General: Reports: No Symptoms Pulmonary: Reports: No Symptoms Cardiovascular: Reports: No Symptoms Gastrointestinal: Reports: No Symptoms Neurological: Reports: Pre-Existing Deficit - Patient Data Vitals - Most Recent: Last Vital Signs Temp 98.2 F 09/10/19 07:48 Pulse 110 H 09/10/19 08:27 Resp 20 09/10/19 07:48 BP 144/60 H 09/10/19 08:27 Pulse Ox 90 L 09/10/19 07:48 Weight - Most Recent: 217 lb 9 oz Lab Results - Last 24 hrs: Laboratory Results - last 24 hr 12/12/19 12/13/19 Range/Units 16:47 07:11 POC Glucose 161 H 157 H (80-116) mg/dL LIN Results - Last 24 hrs: Microbiology 09/05/19 19:50 Aerobic Blood Culture - Preliminary Blood - Venous - Lab Draw NO GROWTH AFTER 4 DAYS Anaerobic Blood Culture - Preliminary NO GROWTH AFTER 4 DAYS 09/05/19 19:40 Aerobic Blood Culture - Preliminary Blood - Venous NO GROWTH AFTER 4 DAYS Anaerobic Blood Culture - Preliminary NO GROWTH AFTER 4 DAYS Med Orders - Current: Current Medications Acetaminophen (Tylenol) 650 mg PO Q4H PRN PRN Reason: Pain (mild 1-3) Last Admin: 09/08/19 22:23 Dose: 650 mg Allopurinol (Zyloprim) 200 mg PO DAILY [facility] Last Admin: 09/10/19 08:26 Dose: 200 mg Aspirin (Aspirin) 81 mg PO DAILY [facility] Last Admin: 09/10/19 08:26 Dose: 81 mg Bisacodyl (Dulcolax) 10 mg RECTAL Q3D PRN PRN Reason: Constipation Brimonidine Tartrate (Alphagan 0.2% Ophth Soln) 0 ml EYEBOTH BID [facility] Last Admin: 09/10/19 08:29 Dose: 1 drop Ceftriaxone Sodium (Rocephin) 1 gm IVPUSH Q24H [facility] Last Admin: 09/09/19 21:29 Dose: 1 gm Dextrose (Glutose 15) 15 gm PO ASDIRECTED PRN PRN Reason: Hypoglycemia Diltiazem HCl (Cardizem Cd) 180 mg PO DAILY [facility] Last Admin: 09/10/19 08:26 Dose: 180 mg Duloxetine HCl (Cymbalta) 60 mg PO DAILY [facility] Last Admin: 09/10/19 08:26 Dose: 60 mg Furosemide (Lasix) 20 mg IVPUSH BID [facility] Last Admin: 09/09/19 20:10 Dose: 20 mg Azithromycin 500 mg/ Sodium (Chloride) 250 mls @ 250 mls/hr IV Q24H [facility] Last Admin: 09/09/19 09:18 Dose: 250 mls/hr Insulin Human Lispro (Humalog) 0 unit SUBCUT TIDMEALS [facility]; Protocol Last Admin: 09/10/19 08:30 Dose: 1 units Latanoprost (Xalatan 0.005% Ophth Soln) 0 ml EYEBOTH BEDTIME [facility] Last Admin: 09/09/19 21:28 Dose: 1 drop Loperamide HCl (Imodium) 2 mg PO ASDIRECTED PRN PRN Reason: Loose Stools Magnesium Hydroxide (Milk Of Magnesia) 30 ml PO DAILY PRN PRN Reason: Constipation Menthol (Perform Pain Reliever) 0 ml TP BID PRN PRN Reason: PAIN Metoprolol Succinate (Toprol Xl) 100 mg PO DAILY [facility] Last Admin: 09/10/19 08:27 Dose: 100 mg Mirtazapine (Remeron) 7.5 mg PO BEDTIME [facility] Last Admin: 09/09/19 20:09 Dose: 7.5 mg Morphine Sulfate (Morphine) 2 mg IVPUSH Q4H PRN PRN Reason: Pain Last Admin: 09/07/19 12:49 Dose: 2 mg Ondansetron HCl (Zofran Odt) 4 mg PO Q6H PRN PRN Reason: Nausea/Vomiting Last Admin: 09/07/19 08:29 Dose: 4 mg Polyethylene Glycol (Miralax) 17 gm PO DAILY PRN PRN Reason: CONSTIPATION Polyethylene Glycol (Miralax) 17 gm PO DAILY [facility] Last Admin: 09/10/19 08:27 Dose: 17 gm Pramipexole Dihydrochloride (Mirapex) 0.125 mg PO BEDTIME PRN PRN Reason: LEG CRAMPS Propylene Glycol (Systane Lubricant) 0 ml EYEBOTH QID [facility] Last Admin: 09/10/19 08:28 Dose: 1 drop Senna/Docusate Sodium (Senna Plus) 1 tab PO BID [facility] Last Admin: 09/10/19 08:26 Dose: 1 tab Sodium Chloride ([place] Nasal [place]) 0 ml NASBOTH Q2H PRN PRN Reason: Dry Nares Sodium Chloride (Saline Flush) 10 ml FLUSH ASDIRECTED PRN PRN Reason: flush Last Admin: 09/09/19 20:15 Dose: 10 ml Trolamine Salicylate (Aspercreme 10%) 0 gm TOP BID PRN PRN Reason: PAIN Warfarin Sodium (Coumadin) 2.5 mg PO MoTuWeThFrSa@1600 [facility] Last Admin: 09/09/19 16:48 Dose: 2.5 mg Warfarin Sodium (Coumadin) 5 mg PO Neri@1600 [facility] Warfarin Sodium (Coumadin Sliding Scale) 1 each PO ASDIRECTED [facility] Discontinued Medications Digoxin (Lanoxin) 250 mcg IVPUSH ONETIME ONE Stop: 09/08/19 04:35 Last Admin: 09/08/19 04:54 Dose: 250 mcg Diltiazem HCl (Diltiazem) 20 mg IVPUSH ONETIME ONE Stop: 09/07/19 08:51 Last Admin: 09/07/19 09:12 Dose: 20 mg Diltiazem HCl (Diltiazem) 5 mg IVPUSH ONETIME STA Stop: 09/07/19 12:24 Last Admin: 09/07/19 12:47 Dose: 5 mg Diltiazem HCl (Diltiazem) 5 mg IVPUSH ONETIME STA Stop: 09/07/19 13:42 Last Admin: 09/07/19 14:54 Dose: 5 mg Furosemide (Lasix) 40 mg IVPUSH NOW ONE Stop: 09/06/19 08:44 Last Admin: 09/06/19 09:28 Dose: Not Given Ceftriaxone Sodium 1 gm/ (Sodium Chloride) 50 mls @ 200 mls/hr IV Q24H [facility] Last Admin: 09/05/19 23:00 Dose: 200 mls/hr Sodium Chloride (Normal Saline) 1,000 mls @ 125 mls/hr IV ASDIRECTED [place] Last Admin: 09/06/19 08:16 Dose: 125 mls/hr Vancomycin HCl 1.5 gm/ Premix 300 mls @ 300 mls/hr IV ASDIRECTED [place] Last Admin: 09/06/19 01:11 Dose: 300 mls/hr Diltiazem HCl 125 mg/ Sodium (Chloride) 125 mls @ 5 mls/hr IV TITRATE [facility]; Protocol Last Titration: 09/08/19 11:37 Dose: 5 mg/hr, 5 mls/hr Isosorbide Mononitrate (Imdur) 60 mg PO DAILY [facility] Last Admin: 09/09/19 08:30 Dose: 60 mg Metolazone (Zaroxolyn) 2.5 mg PO ONETIME ONE Stop: 09/08/19 07:55 Last Admin: 09/08/19 08:19 Dose: 2.5 mg Metoprolol Succinate (Toprol Xl) 50 mg PO DAILY [facility] Last Admin: 09/09/19 08:30 Dose: 50 mg Metoprolol Succinate (Toprol Xl) 50 mg PO ONETIME ONE Stop: 09/09/19 09:31 Last Admin: 09/09/19 13:53 Dose: Not Given Metoprolol Tartrate (Lopressor) 50 mg PO ONETIME ONE Stop: 09/09/19 21:50 Last Admin: 09/09/19 22:05 Dose: 50 mg - Exam General: Reports: Alert, Cooperative, No Acute Distress Lungs: Reports: Normal Respiratory Effort, Decreased Breath Sounds. Denies: Rales, Wheezing Cardiovascular: Reports: Regular Rate, Regular Rhythm GI/Abdominal Exam: Normal Bowel Sounds, Soft, Non-Tender, No Distention Extremities: No Pedal Edema Skin: Reports: Warm, Dry, Intact
[2019-09-12] MEDS ORDERED: Warfarin 5 MG Tab PO SCH (16:00)
== END 2019-09-10 11:40 | DRG 308 ==
LOC: FB.ED 18:59 → FB.MS 21:47 → FB.ICU 09-07 11:10 → FB.MS 09-09 09:40 → FB.ICU 09-09 09:40
PROVIDERS: ADMIT Family Medicine; ATTEND Family Medicine
DX: I48.19 Other persistent atrial fibrillation (principal); R41.82 Altered mental status, unspecified; J18.9 Pneumonia, unspecified organism; I48.91 Unspecified atrial fibrillation; F03.90 Unspecified dementia, unspecified severity, without behavioral disturbance, psychotic disturbance, mood disturbance, and anxiety; I25.10 Atherosclerotic heart disease of native coronary artery without angina pectoris; E11.9 Type 2 diabetes mellitus without complications; E11.42 Type 2 diabetes mellitus with diabetic polyneuropathy; E11.51 Type 2 diabetes mellitus with diabetic peripheral angiopathy without gangrene; E66.9 Obesity, unspecified; Z51.5 Encounter for palliative care; K59.00 Constipation, unspecified; E78.00 Pure hypercholesterolemia, unspecified; H40.9 Unspecified glaucoma; K21.9 Gastro-esophageal reflux disease without esophagitis; E78.5 Hyperlipidemia, unspecified; M48.00 Spinal stenosis, site unspecified; R32 Unspecified urinary incontinence; N32.81 Overactive bladder; D64.9 Anemia, unspecified; M79.7 Fibromyalgia; M19.90 Unspecified osteoarthritis, unspecified site; M48.061 Spinal stenosis, lumbar region without neurogenic claudication; F41.9 Anxiety disorder, unspecified; F32.9 Major depressive disorder, single episode, unspecified; I65.29 Occlusion and stenosis of unspecified carotid artery; I50.9 Heart failure, unspecified; I11.0 Hypertensive heart disease with heart failure; Z68.38 Body mass index [BMI] 38.0-38.9, adult; Z79.84 Long term (current) use of oral hypoglycemic drugs; Z79.899 Other long term (current) drug therapy; Z79.82 Long term (current) use of aspirin; Z79.01 Long term (current) use of anticoagulants; Z88.6 Allergy status to analgesic agent; Z91.030 Bee allergy status; Z88.1 Allergy status to other antibiotic agents; Z88.8 Allergy status to other drugs, medicaments and biological substances; Z88.0 Allergy status to penicillin; Z91.018 Allergy to other foods; Z88.5 Allergy status to narcotic agent; Z86.73 Personal history of transient ischemic attack (TIA), and cerebral infarction without residual deficits; Z87.891 Personal history of nicotine dependence; Z99.81 Dependence on supplemental oxygen; Z90.49 Acquired absence of other specified parts of digestive tract
CPT/HCPCS: 36415; 71045; 74018; 80048; 80053; 82150; 82962; 83605; 83690; 83880; 85025; 85027; 85610; 85730; 87040; 87804; 87804-59; 93010; 94760; 99284; 99285-25; A9270-GY; J0456; J0696; J1160; J1815; J1940; J2270; J3370; J3490; J7030; J7050

== ENCOUNTER 2019-09-26 12:53 | Emergency (ER) | payer MEDICARE ==
[2019-09-26] MEDS ORDERED: Sodium Chloride 0.9% 10 ML Syringe FLUSH PRN (13:17)
--- NOTE | 2019-09-26 13:26 | EDM.PDOC ---
ED HPI GENERAL MEDICAL PROBLEM - General Chief Complaint: Headache Stated Complaint: PUPILS DIALATED, HEADACHE, HBP Time Seen by Provider: 09/26/19 13:00 Source of Information: Reports: Patient, Old Records History Limitations: Reports: Altered Mental Status - History of Present Illness INITIAL COMMENTS - FREE TEXT/NARRATIVE: Landy returns to [facility] ED with sxs of frontal headache, some retro orbital eye pain L>R, and staff who noted that the L pupil is slightly larger than the R pupil. She does not endorse any change in visual acuity, diplopia, field cut, or discharge. She seems more confused today, but has had these issues in the past. There is remote hx of CVA. - Related Data Allergies Allergy/AdvReac Type Severity Reaction Status Date / Time aloe Allergy Other Verified 09/05/19 19:10 apixaban [From Eliquis] Allergy Other Verified 09/05/19 19:10 bee venom protein (honey bee) Allergy Other Verified 09/05/19 19:10 ciprofloxacin Allergy Other Verified 09/05/19 19:10 gabapentin Allergy Other Verified 09/05/19 19:10 lidocaine Allergy Other Verified 09/05/19 19:10 lisinopril Allergy Other Verified 09/05/19 19:10 mirabegron [From Myrbetriq] Allergy Other Verified 09/05/19 19:10 Penicillins Allergy Other Verified 09/05/19 19:10 prednisolone Allergy Other Verified 09/05/19 19:10 tomato Allergy Other Verified 09/05/19 19:10 tramadol Allergy Other Verified 09/05/19 19:10 Home Meds: Home Meds Acetaminophen 650 mg PO Q4H PRN 08/27/19 [History] Acetaminophen [Tylenol Extra Strength] 1,000 mg PO BID 08/27/19 [History] Acetaminophen with Codeine [Tylenol with Codeine #3 Tablet] 2 tab PO BID PRN [History] Bisacodyl [Dulcolax] 10 mg RECTAL Q3D PRN 08/27/19 [History] Brimonidine [Alphagan 0.2% Ophth Soln] 1 drop EYEBOTH BID 08/27/19 [History] DULoxetine [Cymbalta] 60 mg PO DAILY 08/27/19 [History] Isosorbide Mononitrate [Isosorbide Mononitrate ER] 60 mg PO DAILY 08/27/19 [ History] Loperamide HCl [Imodium A-D] 2 mg PO ASDIRECTED PRN 08/27/19 [History] Menthol [Icy Hot Pain Relieving] 1 applic TOP BID PRN 08/27/19 [History] Metoprolol Succinate [Toprol Xl] 50 mg PO BID 08/27/19 [History] Mirtazapine [Remeron] 7.5 mg PO BEDTIME 08/27/19 [History] Ondansetron [Zofran ODT] 4 mg PO TID PRN 08/27/19 [History] Polyethylene Glycol 3350 [MiraLAX] 17 gm PO DAILY 08/27/19 [History] Pramipexole Di-HCl [Pramipexole Dihydrochloride] 0.125 mg PO BEDTIME PRN [History] Propylene Glycol/PEG 400/Pf [Systane Ultra 0.4-0.3% Eye Drp] 1 drop EYEBOTH QID 08/27/19 [History] Sennosides/Docusate Sodium [Senokot-S Tablet] 1 tab PO BID 08/27/19 [History] Sodium Chloride 0.65% [Egan Saline] 2 spray NASBOTH Q2H PRN 08/27/19 [History] allopurinoL [Zyloprim] 200 mg PO DAILY 08/27/19 [History] glipiZIDE [Glipizide ER] 10 mg PO DAILY 08/27/19 [History] Nitroglycerin [Nitrostat] 0.4 mg SL Q5M PRN 09/02/19 [History] Aspirin [Ecotrin EC] 81 mg PO DAILY 09/06/19 [History] Dextrose [Glucose Gel] 1 unit PO ASDIRECTED PRN 09/06/19 [History] EPINEPHrine [Epipen] 0.3 mg IM ASDIRECTED PRN 09/06/19 [History] Eucalyptus Oil/Menthol/Camphor [Vicks Vaporub Ointment] 1 applic TOP ASDIRECTED PRN 09/06/19 [History] Eucalyptus/Menthol [Cough Drops] 1 ea MM ASDIRECTED PRN 09/06/19 [History] Furosemide [Lasix] 40 mg PO DAILY 09/06/19 [History] Glucagon,Human Recombinant [Glucagen] 1 mg IM ASDIRECTED PRN 09/06/19 [History] Latanoprost [Xalatan] 1 drop EYEBOTH BEDTIME 09/06/19 [History] Magnesium Hydroxide [Milk of Magnesia] 30 ml PO DAILY PRN 09/06/19 [History] Polyethylene Glycol 3350 [MiraLAX] 17 gm PO DAILY PRN 09/06/19 [History] Trolamine Salicylate [Wicho-Micin] 1 applic TOP BID PRN 09/06/19 [History] Warfarin [Coumadin] 2.5 mg PO MOTUWETHFRSA 09/06/19 [History] atorvaSTATin Calcium [Lipitor] 20 mg PO BEDTIME 09/06/19 [History] guaiFENesin [Robitussin] 10 ml PO Q4H PRN 09/06/19 [History] Cefdinir 300 mg PO BID 6 Days #12 capsule 09/10/19 [Rx] Diltiazem [Dilacor XR] 180 mg PO DAILY #30 cap.er 09/10/19 [Rx] Warfarin [Coumadin] 5 mg PO MARTI 09/10/19 [History] Past Medical History HEENT History: Reports: Glaucoma, Other (See Below) Other HEENT History: Dry eyes Cardiovascular History: Reports: Afib, Heart Failure, Hypertension, Other (See Below) Other Cardiovascular History: Occlusion and stenosis of carotid artery, 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, edema, PVD Gastrointestinal History: Reports: GERD, Other (See Below) Other Gastrointestinal History: Constipation, hyperlipidemia Genitourinary History: Reports: Other (See Below) Other Genitourinary History: Cystocele, overactive bladder, INCONTINENCE Musculoskeletal History: Reports: Other (See Below) Other Musculoskeletal History: Spinal stenosis, fibromyalgia, weakness, osteoarthritis,R sciatica Neurological History: Reports: CVA, TIA, Other (See Below) Other Neuro History: Polyneuropathy Psychiatric History: Reports: Anxiety, Depression Endocrine/Metabolic History: Reports: Diabetes, Type II, Obesity/BMI 30+ Hematologic History: Reports: Anemia - Past Surgical History Female Surgical History: Reports: None Endocrine Surgical History: Reports: None Social & Family History - Family History Family Medical History: Unobtainable - Caffeine Use Caffeine Use: Reports: Coffee Other Caffeine Use: 1 cup a day ED ROS GENERAL - Review of Systems Review Of Systems: See Below Constitutional: Reports: Malaise HEENT: Reports: Eye Pain, Other (frontal headache) Respiratory: Reports: No Symptoms Cardiovascular: Reports: No Symptoms Endocrine: Reports: Fatigue GI/Abdominal: Reports: No Symptoms : Reports: No Symptoms Musculoskeletal: Reports: No Symptoms Skin: Reports: No Symptoms Neurological: Reports: Headache Psychiatric: Reports: Agitation, Anxiety, Confusion Hematologic/Lymphatic: Reports: No Symptoms Immunologic: Reports: No Symptoms ED EXAM, GENERAL - Physical Exam Exam: See Below Exam Limited By: Other (some confusion to date, time and circumstances of ED visit) General Appearance: Alert, WD/WN, Anxious, Obese Eye Exam: Bilateral Eye: Abnormal Pupil (R pupil 6 mm, L pupil 7 mm, both reactive), EOMI Ears: Normal External Exam Nose: Normal Inspection Throat/Mouth: Normal Oropharynx, Other (xerostomia) Head: Atraumatic, Normocephalic Neck: Normal Inspection, Supple, Non-Tender Respiratory/Chest: Lungs Clear, Normal Breath Sounds, Chest Non-Tender Cardiovascular: Regular Rate, Rhythm, No Murmur GI/Abdominal: Normal Bowel Sounds, Soft, Non-Tender, No Organomegaly, No Distention, No Mass (Female) Exam: Deferred Rectal (Female) Exam: Deferred Back Exam: Normal Inspection Extremities: Normal Inspection, Pedal Edema Neurological: Alert, CN II-XII Intact, No Motor/Sensory Deficits, Memory Loss Recent Events Psychiatric: Normal Affect, Anxious Skin Exam: Warm, Dry, Intact Lymphatic: No Adenopathy Course - Vital Signs Text/Narrative:: Following assessment, some screening labs were obtained, revealing INR 1.39, PT 13.5, Hgb 11.5 gm, WBC 8000, nonFBS 172 mg%, BNP 3440. Other values were baseline. The chest x ray is unchanged from 09/08/19, and the noncontrast Head CT noted small vessel changes, no signs of bleeding or CVA. She was clinically improved at time of discharge. - Orders/Labs/Meds Orders: Active Orders 24 hr Category Date Time Status EKG Documentation Completion [RC] ASDIRECTED Care 09/26/19 13:20 Active Chest 1V Frontal [CR] Stat Exams 09/26/19 13:17 Taken Head wo Cont [CT] Stat Exams 09/26/19 13:21 Taken UA W/MICROSCOPIC [URIN] Stat Lab 09/26/19 13:17 Ordered Sodium Chloride 0.9% [Saline Flush] Med 09/26/19 13:17 Active 10 ml FLUSH ASDIRECTED PRN Warfarin [Coumadin] Med 09/26/19 15:56 Once 5 mg PO ONETIME ONE Peripheral IV Insertion Adult [OM.PC] Routine Oth 09/26/19 13:17 Ordered EKG 12 Lead [EK] Routine Ther 09/26/19 13:17 Ordered Medication Orders Sodium Chloride (Saline Flush) 10 ml FLUSH ASDIRECTED PRN PRN Reason: Keep Vein Open Warfarin Sodium (Coumadin) 5 mg PO ONETIME ONE Stop: 09/26/19 15:57 Labs: Laboratory Tests 09/26/19 09/26/19 09/26/19 Range/Units 13:20 13:20 13:20 WBC 8.1 (4.5-12.0) X10-3/uL RBC 4.20 (3.23-5.20) x10(6)uL Hgb 11.5 (11.5-15.5) g/dL Hct 36.1 (30.0-51.3) % MCV 85.9 (80-96) fL MCH 27.3 L (27.7-33.6) pg MCHC 31.8 L (32.2-35.4) g/dL RDW 18.6 H (11.5-15.5) % Plt Count 259 (125-369) X10(3)uL MPV 9.2 (7.4-10.4) fL Neut % (Auto) 70.3 (46-82) % Lymph % (Auto) 22.1 (13-37) % [place] % (Auto) 5.5 (4-12) % Eos % (Auto) 2 (1.0-5.0) % Baso % (Auto) 0 (0-2) % Neut # (Auto) 5.8 (1.6-8.3) # Lymph # (Auto) 1.8 (0.6-5.0) # [place] # (Auto) 0.4 (0.0-1.3) # Eos # (Auto) 0.1 (0.0-0.8) # Baso # (Auto) 0.0 (0.0-0.2) # PT (8.7-11.1) INR (0.89-1.13) D-Dimer, Quantitative (0.0-0.59) mg/LFEU Sodium 142 (135-145) mmol/L Potassium 4.3 (3.5-5.3) mmol/L Chloride 106 (100-110) mmol/L Carbon Dioxide 25 (21-32) mmol/L BUN 17 (7-18) mg/dL Creatinine 0.9 (0.55-1.02) mg/dL Est Cr Clr Drug Dosing TNP Estimated GFR (MDRD) > 60 (>60) BUN/Creatinine Ratio 18.9 (9-20) Glucose 172 H (80-116) mg/dL Calcium 9.3 (8.6-10.2) mg/dL Total Bilirubin 0.8 (0.1-1.3) mg/dL AST 20 D (5-25) IU/L ALT 22 D (12-36) U/L Alkaline Phosphatase 170 H (56-112) IU/L Troponin I < 0.017 L (<0.017-0.056) ng/mL C-Reactive Protein 0.9 (0.5-0.9) mg/dL NT-Pro-B Natriuret Pep 3440 H* (<=450) pg/mL Total Protein 6.7 (6.0-8.0) g/dL Albumin 3.1 L (3.2-4.6) g/dL Globulin 3.6 g/dL Albumin/Globulin Ratio 0.9 09/26/19 09/26/19 Range/Units 13:20 13:20 WBC (4.5-12.0) X10-3/uL RBC (3.23-5.20) x10(6)uL Hgb (11.5-15.5) g/dL Hct (30.0-51.3) % MCV (80-96) fL MCH (27.7-33.6) pg MCHC (32.2-35.4) g/dL RDW (11.5-15.5) % Plt Count (125-369) X10(3)uL MPV (7.4-10.4) fL Neut % (Auto) (46-82) % Lymph % (Auto) (13-37) % [place] % (Auto) (4-12) % Eos % (Auto) (1.0-5.0) % Baso % (Auto) (0-2) % Neut # (Auto) (1.6-8.3) # Lymph # (Auto) (0.6-5.0) # [place] # (Auto) (0.0-1.3) # Eos # (Auto) (0.0-0.8) # Baso # (Auto) (0.0-0.2) # PT 13.5 H (8.7-11.1) INR 1.39 H (0.89-1.13) D-Dimer, Quantitative 0.65 H (0.0-0.59) mg/LFEU Sodium (135-145) mmol/L Potassium (3.5-5.3) mmol/L Chloride (100-110) mmol/L Carbon Dioxide (21-32) mmol/L BUN (7-18) mg/dL Creatinine (0.55-1.02) mg/dL Est Cr Clr Drug Dosing Estimated GFR (MDRD) (>60) BUN/Creatinine Ratio (9-20) Glucose (80-116) mg/dL Calcium (8.6-10.2) mg/dL Total Bilirubin (0.1-1.3) mg/dL AST (5-25) IU/L ALT (12-36) U/L Alkaline Phosphatase (56-112) IU/L Troponin I (<0.017-0.056) ng/mL C-Reactive Protein (0.5-0.9) mg/dL NT-Pro-B Natriuret Pep (<=450) pg/mL Total Protein (6.0-8.0) g/dL Albumin (3.2-4.6) g/dL Globulin g/dL Albumin/Globulin Ratio Meds: Medications Generic Name Dose Route Start Last Admin Trade Name Freq PRN Reason Stop Dose Admin Sodium Chloride 10 ml 09/26/19 13:17 Saline Flush FLUSH ASDIRECTED PRN Keep Vein Open Warfarin Sodium 5 mg 09/26/19 15:56 Coumadin PO 09/26/19 15:57 ONETIME ONE Departure - Departure Time of Disposition: 15:50 Disposition: [facility] Condition: Fair Clinical Impression: Tension-type headache Afib Qualifiers: Atrial fibrillation type: other persistent Qualified Code(s): I48.19 - Other persistent atrial fibrillation - Discharge Information *PRESCRIPTION DRUG MONITORING PROGRAM REVIEWED*: Not Applicable *COPY OF PRESCRIPTION DRUG MONITORING REPORT IN PATIENT JANIYA: Not Applicable Referrals: Axel Davis MD [Primary Care Provider] - Forms: ED Department Discharge Sepsis Event Note - Focused Exam Date Exam was Performed: 09/26/19 Time Exam was Performed: 15:58 - Problem List & Annotations (1) Afib SNOMED Code(s): 88593103 Code(s): I48.91 - UNSPECIFIED ATRIAL FIBRILLATION Status: Acute Current Visit: Yes Annotation/Comment:: I administered Coumadin 5 mg at ED before discharge. This will need follow up with clinician. Qualifiers: Atrial fibrillation type: other persistent Qualified Code(s): I48.19 - Other persistent atrial fibrillation (2) Tension-type headache SNOMED Code(s): 543110175 Code(s): G44.209 - TENSION-TYPE HEADACHE, UNSPECIFIED, NOT INTRACTABLE Status: Acute Current Visit: Yes Annotation/Comment:: Sxs treatment as needed. - Problem List Review Problem List Initiated/Reviewed/Updated: Yes - My Orders Last 24 Hours: My Active Orders 09/26/19 13:17 Chest 1V Frontal [CR] Stat UA W/MICROSCOPIC [URIN] Stat Sodium Chloride 0.9% [Saline Flush] 10 ml FLUSH ASDIRECTED PRN Peripheral IV Insertion Adult [OM.PC] Routine EKG 12 Lead [EK] Routine 09/26/19 13:20 EKG Documentation Completion [RC] ASDIRECTED 09/26/19 13:21 Head wo Cont [CT] Stat 09/26/19 15:56 Warfarin [Coumadin] 5 mg PO ONETIME ONE - Assessment/Plan Last 24 Hours: My Active Orders 09/26/19 13:17 Chest 1V Frontal [CR] Stat UA W/MICROSCOPIC [URIN] Stat Sodium Chloride 0.9% [Saline Flush] 10 ml FLUSH ASDIRECTED PRN Peripheral IV Insertion Adult [OM.PC] Routine EKG 12 Lead [EK] Routine 09/26/19 13:20 EKG Documentation Completion [RC] ASDIRECTED 09/26/19 13:21 Head wo Cont [CT] Stat 09/26/19 15:56 Warfarin [Coumadin] 5 mg PO ONETIME ONE Plan: Follow up with PCP.
[2019-09-26] MEDS ORDERED: Warfarin 5 MG Tab PO ONE (15:56)
== END 2019-09-26 16:38 ==
LOC: FB.ED 12:53
DX: G44.209 Tension-type headache, unspecified, not intractable (principal); I48.91 Unspecified atrial fibrillation; E78.5 Hyperlipidemia, unspecified; E11.42 Type 2 diabetes mellitus with diabetic polyneuropathy; E66.9 Obesity, unspecified; Z68.30 Body mass index [BMI] 30.0-30.9, adult; I11.0 Hypertensive heart disease with heart failure; I50.9 Heart failure, unspecified; K21.9 Gastro-esophageal reflux disease without esophagitis; F41.9 Anxiety disorder, unspecified; Z86.73 Personal history of transient ischemic attack (TIA), and cerebral infarction without residual deficits; M19.90 Unspecified osteoarthritis, unspecified site; F32.9 Major depressive disorder, single episode, unspecified; Z79.899 Other long term (current) drug therapy; Z79.01 Long term (current) use of anticoagulants; Z79.82 Long term (current) use of aspirin; Z79.4 Long term (current) use of insulin
CPT/HCPCS: 36415; 70450; 71045; 80053; 83880; 84484; 85025; 85379; 85610; 86140; 93005; 93010; 99283; 99285; A9270

== ENCOUNTER 2019-09-28 10:23 | Emergency (ER) | payer MEDICARE ==
--- NOTE | 2019-09-28 11:22 | EDM.PDOC ---
ED HPI GENERAL MEDICAL PROBLEM - General Chief Complaint: Neuro Symptoms/Deficits Stated Complaint: UNRESPONSIVE Time Seen by Provider: 09/28/19 10:45 Source of Information: Reports: Patient, Family, Assisted Records, Old Records History Limitations: Reports: Altered Mental Status - History of Present Illness INITIAL COMMENTS - FREE TEXT/NARRATIVE: c/o dec'd alertness pt did not take her meds or bfast this AM, did take them last night, she was passive in [place] and on arrival at ED, vss except for AF with RVR 115-120, did make eye contact, was alert, did not appear sedated tolerated an IV and phlebotomy without withdrawal however she was swearing and combative and saying "don't do that" when I&O urine cath done, which is her baseline as per lab (who draws her at [facility]) and floor RN Jeanette who Cx heard her swearing profusely when hospitalized as well as 2d ago when in ED pt was passive in ED 2d ago, w/u done with labs that appeared to be at baseline , initially passive as she is now, then began swearing profusely at the end of the visit labs 2d ago with CRP 0.9, alb 3.1 (baseline 2.6 from 2m ago), BNP 3440 ( baseline 5000), hgb 11.5 (up from 9.4 from 2w ago, altho renal function and BNP at baseline 2d ago and 11.5 may be an optimum hgb with pt running slightly on the dry side, lab confirms no PRBC as per any of their records), BUN/creat 17/ 0.9 which is baseline, INR 1.3 and low (on warfarin, no other INRs available) last u/a 2m ago with packed WBC and many bacteria, UC with E coli sensitive to all, wearing a depends, cath u/s obtained today and sent BS 108 now in ED dtr at [facility] wound culture form abd abscess 2m ago with Staph aureus sensitive all CxR 1v from 2d ago with bibasilar infiltrate/effusions c/w small b/l pleural effusions, L>R head CT 2d ago neg pt if full code - Related Data Allergies Allergy/AdvReac Type Severity Reaction Status Date / Time aloe Allergy Other Verified 09/28/19 11:29 apixaban [From Eliquis] Allergy Other Verified 09/28/19 11:29 bee venom protein (honey bee) Allergy Other Verified 09/28/19 11:29 ciprofloxacin Allergy Other Verified 09/28/19 11:29 gabapentin Allergy Other Verified 09/28/19 11:29 lidocaine Allergy Other Verified 09/28/19 11:29 lisinopril Allergy Other Verified 09/28/19 11:29 mirabegron [From Myrbetriq] Allergy Other Verified 09/28/19 11:29 Penicillins Allergy Other Verified 09/28/19 11:29 prednisolone Allergy Other Verified 09/28/19 11:29 tomato Allergy Other Verified 09/28/19 11:29 tramadol Allergy Other Verified 09/28/19 11:29 Home Meds: Home Meds Acetaminophen 650 mg PO Q4H PRN 08/27/19 [History] Acetaminophen [Tylenol Extra Strength] 1,000 mg PO BID 08/27/19 [History] Acetaminophen with Codeine [Tylenol with Codeine #3 Tablet] 2 tab PO BID PRN [History] Bisacodyl [Dulcolax] 10 mg RECTAL Q3D PRN 08/27/19 [History] Brimonidine [Alphagan 0.2% Ophth Soln] 1 drop EYEBOTH BID 08/27/19 [History] DULoxetine [Cymbalta] 60 mg PO DAILY 08/27/19 [History] Isosorbide Mononitrate [Isosorbide Mononitrate ER] 60 mg PO DAILY 08/27/19 [ History] Loperamide HCl [Imodium A-D] 2 mg PO ASDIRECTED PRN 08/27/19 [History] Menthol [Icy Hot Pain Relieving] 1 applic TOP BID PRN 08/27/19 [History] Ondansetron [Zofran ODT] 4 mg PO TID PRN 08/27/19 [History] Polyethylene Glycol 3350 [MiraLAX] 17 gm PO DAILY 08/27/19 [History] Pramipexole Di-HCl [Pramipexole Dihydrochloride] 0.125 mg PO BEDTIME PRN [History] Sennosides/Docusate Sodium [Senokot-S Tablet] 1 tab PO BID 08/27/19 [History] allopurinoL [Zyloprim] 200 mg PO DAILY 08/27/19 [History] glipiZIDE [Glipizide ER] 10 mg PO DAILY 08/27/19 [History] Nitroglycerin [Nitrostat] 0.4 mg SL Q5M PRN 09/02/19 [History] Aspirin [Ecotrin EC] 81 mg PO DAILY 09/06/19 [History] Dextrose [Glucose Gel] 1 unit PO ASDIRECTED PRN 09/06/19 [History] EPINEPHrine [Epipen] 0.3 mg IM ASDIRECTED PRN 09/06/19 [History] Eucalyptus Oil/Menthol/Camphor [Vicks Vaporub Ointment] 1 applic TOP ASDIRECTED PRN 09/06/19 [History] Eucalyptus/Menthol [Cough Drops] 1 ea MM ASDIRECTED PRN 09/06/19 [History] Glucagon,Human Recombinant [Glucagen] 1 mg IM ASDIRECTED PRN 09/06/19 [History] Latanoprost [Xalatan] 1 drop EYEBOTH BEDTIME 09/06/19 [History] Magnesium Hydroxide [Milk of Magnesia] 30 ml PO DAILY PRN 09/06/19 [History] Polyethylene Glycol 3350 [MiraLAX] 17 gm PO DAILY PRN 09/06/19 [History] Trolamine Salicylate [Wicho-Micin] 1 applic TOP BID PRN 09/06/19 [History] Warfarin [Coumadin] 2.5 mg PO MOTUWETHFRSA 09/06/19 [History] atorvaSTATin Calcium [Lipitor] 20 mg PO BEDTIME 09/06/19 [History] guaiFENesin [Robitussin] 10 ml PO Q4H PRN 09/06/19 [History] Ferrous Gluconate 324 mg PO DAILY 09/28/19 [History] Metoprolol Succinate [Toprol Xl] 50 mg PO BEDTIME 09/28/19 [History] Phytonadione [Vitamin K] 100 mcg PO DAILY 09/28/19 [History] Propylene Glycol/PEG 400/Pf [Systane Ultra 0.4-0.3% Eye Drp] 1 each OP Q4H 09/28 [History] Past Medical History HEENT History: Reports: Glaucoma, Other (See Below) Other HEENT History: Dry eyes Cardiovascular History: Reports: Afib, Heart Failure, Hypertension, Other (See Below) Other Cardiovascular History: Occlusion and stenosis of carotid artery, 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, edema, PVD Gastrointestinal History: Reports: GERD, Other (See Below) Other Gastrointestinal History: Constipation, hyperlipidemia Genitourinary History: Reports: Other (See Below) Other Genitourinary History: Cystocele, overactive bladder, INCONTINENCE Musculoskeletal History: Reports: Other (See Below) Other Musculoskeletal History: Spinal stenosis, fibromyalgia, weakness, osteoarthritis,R sciatica Neurological History: Reports: CVA, TIA, Other (See Below) Other Neuro History: Polyneuropathy Psychiatric History: Reports: Anxiety, Depression Endocrine/Metabolic History: Reports: Diabetes, Type II, Obesity/BMI 30+ Hematologic History: Reports: Anemia - Past Surgical History Female Surgical History: Reports: None Endocrine Surgical History: Reports: None Social & Family History - Family History Family Medical History: Unobtainable - Caffeine Use Caffeine Use: Reports: Coffee Other Caffeine Use: 1 cup a day ED ROS GENERAL - Review of Systems Review Of Systems: See Below Constitutional: Reports: No Symptoms HEENT: Reports: No Symptoms Respiratory: Reports: No Symptoms Cardiovascular: Reports: No Symptoms Endocrine: Reports: No Symptoms GI/Abdominal: Reports: No Symptoms : Reports: No Symptoms Musculoskeletal: Reports: No Symptoms Skin: Reports: No Symptoms Neurological: Reports: Other (variable responsiveness which appears to be mood related and not neurologically related) Psychiatric: Reports: No Symptoms Hematologic/Lymphatic: Reports: No Symptoms Immunologic: Reports: No Symptoms ED EXAM, GENERAL - Physical Exam Exam: See Below Exam Limited By: Altered Mental Status General Appearance: Alert, No Apparent Distress, Other (obese, appears nonill, nontoxic, does make good eye contact with examiner, looks both L & R, conjugate gaze, appears disinterested, no sedation) Eye Exam: Bilateral Eye: EOMI, Proptosis Ears: Normal External Exam, Hearing Grossly Normal Nose: Normal Inspection, Normal Mucosa, No Blood Throat/Mouth: Normal Inspection, Normal Lips, Normal Voice, No Airway Compromise , Other (yelling without difficulty, normal (albeit loud) voice) Head: Atraumatic, Normocephalic Neck: Normal Inspection, Supple, Non-Tender. No: Lymphadenopathy (R), Lymphadenopathy (L) Respiratory/Chest: No Respiratory Distress, Lungs Clear, Normal Breath Sounds, Other (does not cooperate to take a DB) Cardiovascular: Other (2/6 OMEGA at LSB, tachy, irreg irreg, quite precordium) GI/Abdominal: Normal Bowel Sounds, Soft, Non-Tender, Other (obese, soft, very good BS, NT) Extremities: Other (dec'd turgor in LE without edema or tenting, "small" ankles relative to body habitus) Neurological: Alert, CN II-XII Intact, Other (cognition appears baseline based on description of [facility] staff) Psychiatric: Normal Affect, Normal Mood Skin Exam: Warm, Dry, Intact, Normal Color, No Rash Lymphatic: No Adenopathy Course - Vital Signs Last Recorded V/S: Last Vital Signs Temp 36.2 C 09/28/19 10:23 Pulse 128 H 09/28/19 10:23 Resp 18 09/28/19 10:23 BP 153/95 H 09/28/19 10:23 Pulse Ox 95 09/28/19 10:23 - Orders/Labs/Meds Orders: Active Orders 24 hr Category Date Time Status EKG Documentation Completion [RC] ASDIRECTED Care 09/28/19 11:10 Ordered Chest 1V Frontal [CR] Stat Exams 09/28/19 11:28 Ordered EKG 12 Lead [EK] Routine Ther 09/28/19 11:08 Ordered Labs: Laboratory Tests 09/28/19 09/28/19 09/28/19 Range/Units 10:40 10:40 10:40 WBC 6.8 (4.5-12.0) X10-3/uL RBC 4.25 (3.23-5.20) x10(6)uL Hgb 11.3 L (11.5-15.5) g/dL Hct 36.3 (30.0-51.3) % MCV 85.4 (80-96) fL MCH 26.5 L (27.7-33.6) pg MCHC 31.0 L (32.2-35.4) g/dL RDW 18.4 H (11.5-15.5) % Plt Count 236 (125-369) X10(3)uL MPV 9.6 (7.4-10.4) fL Neut % (Auto) 64.8 (46-82) % Lymph % (Auto) 26.9 (13-37) % [place] % (Auto) 6.4 (4-12) % Eos % (Auto) 2 (1.0-5.0) % Baso % (Auto) 0 (0-2) % Neut # (Auto) 4.5 (1.6-8.3) # Lymph # (Auto) 1.8 (0.6-5.0) # [place] # (Auto) 0.4 (0.0-1.3) # Eos # (Auto) 0.1 (0.0-0.8) # Baso # (Auto) 0.0 (0.0-0.2) # PT (8.7-11.1) INR (0.89-1.13) Sodium 143 (135-145) mmol/L Potassium 4.2 (3.5-5.3) mmol/L Chloride 107 (100-110) mmol/L Carbon Dioxide 25 (21-32) mmol/L BUN 20 H (7-18) mg/dL Creatinine 0.8 (0.55-1.02) mg/dL Est Cr Clr Drug Dosing 45.62 mL/min Estimated GFR (MDRD) > 60 (>60) BUN/Creatinine Ratio 25.0 H (9-20) Glucose 110 (80-116) mg/dL Uric Acid 5.2 (3.5-7.2) mg/dL Calcium 9.0 (8.6-10.2) mg/dL Total Bilirubin 0.7 (0.1-1.3) mg/dL AST 18 (5-25) IU/L ALT 18 D (12-36) U/L Alkaline Phosphatase 160 H (56-112) IU/L Troponin I < 0.017 L (<0.017-0.056) ng/mL C-Reactive Protein 0.3 L (0.5-0.9) mg/dL NT-Pro-B Natriuret Pep 2054 H* (<=450) pg/mL Total Protein 6.8 (6.0-8.0) g/dL Albumin 3.2 (3.2-4.6) g/dL Globulin 3.6 g/dL Albumin/Globulin Ratio 0.9 Urine Color (YELLOW) Urine Appearance (CLEAR) Urine pH (5.0-6.5) Ur Specific [place] (1.010-1.025) Urine Protein (NEGATIVE) mg/dL Urine Glucose (UA) (NORMAL) mg/dL Urine Ketones (NEGATIVE) mg/dL Urine Occult Blood (NEGATIVE) Urine Nitrite (NEGATIVE) Urine Bilirubin (NEGATIVE) Urine Urobilinogen (NEGATIVE) mg/dL Ur Leukocyte Esterase (NEGATIVE) Urine RBC (0-5) Urine WBC (0-5) Ur Squamous Epith Cells (NS,R,O) Urine Bacteria (NS) 09/28/19 09/28/19 Range/Units 10:40 11:25 WBC (4.5-12.0) X10-3/uL RBC (3.23-5.20) x10(6)uL Hgb (11.5-15.5) g/dL Hct (30.0-51.3) % MCV (80-96) fL MCH (27.7-33.6) pg MCHC (32.2-35.4) g/dL RDW (11.5-15.5) % Plt Count (125-369) X10(3)uL MPV (7.4-10.4) fL Neut % (Auto) (46-82) % Lymph % (Auto) (13-37) % [place] % (Auto) (4-12) % Eos % (Auto) (1.0-5.0) % Baso % (Auto) (0-2) % Neut # (Auto) (1.6-8.3) # Lymph # (Auto) (0.6-5.0) # [place] # (Auto) (0.0-1.3) # Eos # (Auto) (0.0-0.8) # Baso # (Auto) (0.0-0.2) # PT 13.9 H (8.7-11.1) INR 1.44 H (0.89-1.13) Sodium (135-145) mmol/L Potassium (3.5-5.3) mmol/L Chloride (100-110) mmol/L Carbon Dioxide (21-32) mmol/L BUN (7-18) mg/dL Creatinine (0.55-1.02) mg/dL Est Cr Clr Drug Dosing mL/min Estimated GFR (MDRD) (>60) BUN/Creatinine Ratio (9-20) Glucose (80-116) mg/dL Uric Acid (3.5-7.2) mg/dL Calcium (8.6-10.2) mg/dL Total Bilirubin (0.1-1.3) mg/dL AST (5-25) IU/L ALT (12-36) U/L Alkaline Phosphatase (56-112) IU/L Troponin I (<0.017-0.056) ng/mL C-Reactive Protein (0.5-0.9) mg/dL NT-Pro-B Natriuret Pep (<=450) pg/mL Total Protein (6.0-8.0) g/dL Albumin (3.2-4.6) g/dL Globulin g/dL Albumin/Globulin Ratio Urine Color Yellow (YELLOW) Urine Appearance Clear (CLEAR) Urine pH 6.0 (5.0-6.5) Ur Specific [place] 1.015 (1.010-1.025) Urine Protein 100 H (NEGATIVE) mg/dL Urine Glucose (UA) Normal (NORMAL) mg/dL Urine Ketones Negative (NEGATIVE) mg/dL Urine Occult Blood Moderate H (NEGATIVE) Urine Nitrite Negative (NEGATIVE) Urine Bilirubin Negative (NEGATIVE) Urine Urobilinogen Normal (NEGATIVE) mg/dL Ur Leukocyte Esterase Negative (NEGATIVE) Urine RBC 30-40 H (0-5) Urine WBC 0-5 (0-5) Ur Squamous Epith Cells Few H (NS,R,O) Urine Bacteria Rare H (NS) - Re-Assessments/Exams Free Text/Narrative Re-Assessment/Exam: 09/28/19 12:37 w/u neg, cardiac and renal function the best they have been in years, no pneumonia/UTI wax and wane of cognitive function c/w advancing dementia, does not have a dx of dementia on chart, cannot exclude variable mood disorder altho pt with no signs of anx/depr here, no evidence of a TIA 3 children, only 1 local, dtr at bedside who is a nurse, dtr has financial POA, dtr says pt "is her own decision maker" altho pt not demonstrating the capacity to do so pt will likely continue to have variable neuro response c/w advancing dementia INR 1.4 and low, dtr thinks warfarin dose adjusted 2d ago, [facility], will have PCP f/u on INR no acute process identified does have inc'd HR c/w missing AM dose of BB and CCB Departure - Departure Time of Disposition: 12:41 Disposition: DC/[facility] to [facility] Condition: Fair Clinical Impression: Confusion, Cognitive impairment, Chronic renal failure, Chronic heart failure, Abnormal INR - Discharge Information *PRESCRIPTION DRUG MONITORING PROGRAM REVIEWED*: Not Applicable *COPY OF PRESCRIPTION DRUG MONITORING REPORT IN PATIENT JANIYA: Not Applicable Referrals: Axel Davis MD [Primary Care Provider] - Forms: ED Department Discharge Additional Instructions: Continue current meds. Recheck INR in 2 days. Check with PCP on any adjustments in dose of warfarin. Cognitive status is likely to continue to be problematic. Review her code status. Sepsis Event Note - Evaluation Sepsis Screening Result: No Definite Risk - Focused Exam Vital Signs: Vital Signs Temp Pulse Resp BP Pulse Ox 09/28/19 10:23 36.2 C 128 H 18 153/95 H 95 Date Exam was Performed: 09/28/19 Time Exam was Performed: 12:36 - My Orders Last 24 Hours: My Active Orders 09/28/19 11:08 EKG 12 Lead [EK] Routine 09/28/19 11:10 EKG Documentation Completion [RC] ASDIRECTED 09/28/19 11:28 Chest 1V Frontal [CR] Stat - Assessment/Plan Last 24 Hours: My Active Orders 09/28/19 11:08 EKG 12 Lead [EK] Routine 09/28/19 11:10 EKG Documentation Completion [RC] ASDIRECTED 09/28/19 11:28 Chest 1V Frontal [CR] Stat
== END 2019-09-28 12:58 ==
LOC: FB.ED 10:23
DX: I13.0 Hypertensive heart and chronic kidney disease with heart failure and stage 1 through stage 4 chronic kidney disease, or unspecified chronic kidney disease (principal); E11.22 Type 2 diabetes mellitus with diabetic chronic kidney disease; I50.9 Heart failure, unspecified; N18.9 Chronic kidney disease, unspecified; R79.1 Abnormal coagulation profile; G31.84 Mild cognitive impairment of uncertain or unknown etiology; Z88.8 Allergy status to other drugs, medicaments and biological substances; Z91.030 Bee allergy status; Z88.1 Allergy status to other antibiotic agents; Z79.899 Other long term (current) drug therapy; Z79.82 Long term (current) use of aspirin
CPT/HCPCS: 36415; 71045; 80053; 81001; 82962; 83880; 84484; 84550; 85025; 85610; 86140; 93005; 93010; 99284; 99285-25

== ENCOUNTER 2019-12-09 18:40 | Emergency (ER) | payer MEDICARE ==
[2019-12-09] MEDS ORDERED: cefTRIAXone 2 GM Vial IVPUSH ONE (19:59)
[2019-12-09] MEDS ORDERED: Diltiazem 25 MG/5 ML SDV IVPUSH ONE (19:59)
[2019-12-09] MEDS: Sodium Chloride 0.9% 10 ML Syringe FLUSH PRN ×2 (20:48→21:11)
[2019-12-09] MEDS ORDERED: Ondansetron 4 MG/2 ML SDV IVPUSH ONE (21:06)
--- NOTE | 2019-12-10 04:21 | ER ---
DATE SEEN: 12/09/2019 REASON FOR VISIT: Fever. HISTORY OF PRESENT ILLNESS: This is an 79-year-old female from the group home, brought in because of low-grade fever, reported to also have some alteration of mental status. These symptoms developed today. Landy has history of atrial fibrillation, CHF, hypertension, and most recently, at the end of August, was in for pneumonia. No other symptoms available because the patient has dementia. REVIEW OF SYSTEMS: All other systems not obtainable because of the above reasons. ALLERGIES: Were recorded. MEDICATIONS: Were reviewed. PHYSICAL EXAMINATION: GENERAL: She is not in any acute distress. VITAL SIGNS: Temperature is 100.6, pulse is 152, oxygenation 94% on room air, blood pressure is normal. ENT: Negative. NECK: Supple. CARDIOVASCULAR: Irregular with tachycardia. EXTREMITIES: No edema. ABDOMEN: Soft. LUNGS: Clear. LABORATORY DATA: Labs were normal including white cell count of 5.9, normal electrolytes, and I did an EKG that showed atrial fibrillation with rapid ventricular response. Chest x-ray was fairly unremarkable. IMPRESSION: 1. Low-grade fever. 2. Atrial fibrillation. PLAN: I gave 2 g of IV Rocephin and 25 mg of IV Cardizem push. We will send her home. Vital signs normalized and I advised that they obtain a UA at the group home which results should be sent to the primary care physician. Continue her other medications. /[id number] AVERY/HARRIET
--- NOTE | 2019-12-10 10:45 | CR ---
INDICATION: Fever, cough. CHEST, ONE VIEW: An AP upright portable view of the chest 12/09/2019 was compared with 09/28/2019 and 09/26/2019, again revealing evidence of previous median sternotomy. The heart size does not appear to be increased and likely is within normal limits or at the upper limits of normal in size. The aorta is tortuous and calcified in the arch and descending portion. There is suggestion of pleuroparenchymal change at the left lung base which may be on the basis of pneumonia and pleuritis of mild degree. No gross consolidating pneumonia or significant size effusion was seen. There is some thickening of the minor fissure on the right with some lateral pleural thickening bilaterally, more prominent on the right which may be fibrotic in nature. IMPRESSION: Suggestion of pleuroparenchymal change is noted at the left lung base raising question of mild pneumonia and pleuritis. MTDD
== END 2019-12-09 21:45 | disposition home or self-care (01) ==
LOC: FB.ED 18:40
DX: I48.91 Unspecified atrial fibrillation (principal); R50.9 Fever, unspecified
CPT/HCPCS: 36415; 71045; 80048; 85025; 93005; 96374; 96375; 99285; J0696; J2405; J3490

== ENCOUNTER 2019-12-10 10:47 | Emergency (ER) | payer MEDICARE ==
[2019-12-10] MEDS ORDERED: Albuterol/Ipratropium 3.0-0.5 MG/3 ML Neb Soln NEB ONE (11:22)
--- NOTE | 2019-12-10 12:14 | EDM.PDOC ---
ED HPI GENERAL MEDICAL PROBLEM - General Chief Complaint: Respiratory Problem Stated Complaint: FEVER Time Seen by Provider: 12/10/19 10:55 Source of Information: Reports: Patient History Limitations: Reports: No Limitations - History of Present Illness INITIAL COMMENTS - FREE TEXT/NARRATIVE: Patient presented to the ED because of cough and cold and low grade fever. She is also lethargic denies any dyspnea. - Related Data Allergies Allergy/AdvReac Type Severity Reaction Status Date / Time aloe Allergy Other Verified 12/10/19 11:02 apixaban [From Eliquis] Allergy Other Verified 12/10/19 11:02 bee venom protein (honey bee) Allergy Other Verified 12/10/19 11:02 ciprofloxacin Allergy Other Verified 12/10/19 11:02 gabapentin Allergy Other Verified 12/10/19 11:02 lidocaine Allergy Other Verified 12/10/19 11:02 lisinopril Allergy Other Verified 12/10/19 11:02 mirabegron [From Myrbetriq] Allergy Other Verified 12/10/19 11:02 Penicillins Allergy Other Verified 12/10/19 11:02 prednisolone Allergy Other Verified 12/10/19 11:02 tomato Allergy Other Verified 12/10/19 11:02 tramadol Allergy Other Verified 12/10/19 11:02 Home Meds: Home Meds Acetaminophen 650 mg PO Q4H PRN 08/27/19 [History] Acetaminophen [Tylenol Extra Strength] 1,000 mg PO BID 08/27/19 [History] Acetaminophen with Codeine [Tylenol with Codeine #3 Tablet] 2 tab PO ASDIRECTED PRN 08/27/19 [History] Bisacodyl [Dulcolax] 10 mg RECTAL Q3D PRN 08/27/19 [History] Brimonidine [Alphagan 0.2% Ophth Soln] 1 drop EYEBOTH BID 08/27/19 [History] DULoxetine [Cymbalta] 60 mg PO DAILY 08/27/19 [History] Isosorbide Mononitrate [Isosorbide Mononitrate ER] 60 mg PO DAILY 08/27/19 [ History] Loperamide HCl [Imodium A-D] 2 mg PO ASDIRECTED PRN 08/27/19 [History] Menthol [Icy Hot Pain Relieving] 1 applic TOP BID PRN 08/27/19 [History] Ondansetron [Zofran ODT] 4 mg PO TID PRN 08/27/19 [History] Pramipexole Di-HCl [Pramipexole Dihydrochloride] 0.125 mg PO BEDTIME PRN [History] Sennosides/Docusate Sodium [Senokot-S Tablet] 1 tab PO BID 08/27/19 [History] allopurinoL [Zyloprim] 200 mg PO DAILY 08/27/19 [History] glipiZIDE [Glipizide ER] 10 mg PO DAILY 08/27/19 [History] polyethylene glycoL 3350 [MiraLAX] 17 gm PO DAILY 08/27/19 [History] Nitroglycerin [Nitrostat] 0.4 mg SL Q5M PRN 09/02/19 [History] Aspirin [Ecotrin EC] 81 mg PO DAILY 09/06/19 [History] Dextrose [Glucose Gel] 1 unit PO ASDIRECTED PRN 09/06/19 [History] EPINEPHrine [Epipen] 0.3 mg IM ASDIRECTED PRN 09/06/19 [History] Eucalyptus Oil/Menthol/Camphor [Vicks Vaporub Ointment] 1 applic TOP ASDIRECTED PRN 09/06/19 [History] Eucalyptus/Menthol [Cough Drops] 1 ea MM ASDIRECTED PRN 09/06/19 [History] Glucagon,Human Recombinant [Glucagen] 1 mg IM ASDIRECTED PRN 09/06/19 [History] Latanoprost [Xalatan] 1 drop EYEBOTH BEDTIME 09/06/19 [History] Magnesium Hydroxide [Milk of Magnesia] 30 ml PO DAILY PRN 09/06/19 [History] Trolamine Salicylate [Wicho-Micin] 1 applic TOP BID PRN 09/06/19 [History] Warfarin [Coumadin] 2.5 mg PO BEDTIME 09/06/19 [History] atorvaSTATin Calcium [Lipitor] 20 mg PO BEDTIME 09/06/19 [History] guaiFENesin [Robitussin] 10 ml PO Q4H PRN 09/06/19 [History] polyethylene glycoL 3350 [MiraLAX] 17 gm PO DAILY PRN 09/06/19 [History] Ferrous Gluconate 324 mg PO DAILY 09/28/19 [History] Metoprolol Succinate [Toprol Xl] 50 mg PO BEDTIME 09/28/19 [History] Phytonadione [Vitamin K] 100 mcg PO DAILY 09/28/19 [History] Propylene Glycol/PEG 400/Pf [Systane Ultra 0.4-0.3% Eye Drp] 1 each OP Q4H 09/28 [History] Albuterol Sulfate 2.5 mg IH Q1H PRN #30 ml 12/10/19 [Rx] Albuterol/Ipratropium [DuoNeb 3.0-0.5 MG/3 ML] 3 ml IH Q4H #30 neb 12/10/19 [Rx] Azithromycin [Zithromax] 500 mg PO DAILY #7 tab 12/10/19 [Rx] Past Medical History HEENT History: Reports: Glaucoma, Other (See Below) Other HEENT History: Dry eyes Cardiovascular History: Reports: Afib, Heart Failure, Hypertension, Other (See Below) Other Cardiovascular History: Occlusion and stenosis of carotid artery, 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, edema, PVD Gastrointestinal History: Reports: GERD, Other (See Below) Other Gastrointestinal History: Constipation, hyperlipidemia Genitourinary History: Reports: Other (See Below) Other Genitourinary History: Cystocele, overactive bladder, INCONTINENCE 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: Musculoskeletal History: Reports: Other (See Below) Other Musculoskeletal History: Spinal stenosis, fibromyalgia, weakness, osteoarthritis,R sciatica Neurological History: Reports: CVA, TIA, Other (See Below) Other Neuro History: Polyneuropathy Psychiatric History: Reports: Anxiety, Depression Endocrine/Metabolic History: Reports: Diabetes, Type II, Obesity/BMI 30+ Hematologic History: Reports: Anemia - Past Surgical History Female Surgical History: Reports: None Endocrine Surgical History: Reports: None Social & Family History - Family History Family Medical History: Unobtainable - Caffeine Use Caffeine Use: Reports: Coffee Other Caffeine Use: 1 cup a day ED ROS GENERAL - Review of Systems Review Of Systems: See Below Constitutional: Reports: No Symptoms HEENT: Reports: No Symptoms Respiratory: Reports: Wheezing Cardiovascular: Reports: No Symptoms Endocrine: Reports: No Symptoms GI/Abdominal: Reports: No Symptoms : Reports: No Symptoms, Urinary Retention Skin: Reports: No Symptoms Neurological: Reports: No Symptoms Psychiatric: Reports: No Symptoms ED EXAM, GENERAL - Physical Exam Exam: See Below Exam Limited By: No Limitations General Appearance: Alert, No Apparent Distress Ears: Normal External Exam, Normal Canal Nose: Normal Inspection, Normal Mucosa, No Blood Throat/Mouth: Normal Inspection, Normal Lips, Normal Teeth Head: Atraumatic, Normocephalic Neck: Normal Inspection, Supple, Non-Tender Respiratory/Chest: No Respiratory Distress, Lungs Clear, Normal Breath Sounds, Rhonchi Cardiovascular: Normal Peripheral Pulses, Regular Rate, Rhythm, No Edema, No Gallop, No JVD, No Murmur, No Rub GI/Abdominal: Normal Bowel Sounds, Soft, Non-Tender, No Organomegaly, No Distention, No Abnormal Bruit, No Mass Back Exam: Normal Inspection, Full Range of Motion Extremities: Normal Inspection, Normal Range of Motion Course - Vital Signs Last Recorded V/S: Last Vital Signs Temp 37.2 C 12/10/19 10:47 Pulse 89 12/10/19 11:41 Resp 16 12/10/19 10:47 BP 134/97 H 12/10/19 10:47 Pulse Ox 96 12/10/19 10:47 - Orders/Labs/Meds Meds: Medications Discontinued Medications Generic Name Dose Route Start Last Admin Trade Name Freq PRN Reason Stop Dose Admin Albuterol/Ipratropium 3 ml 12/10/19 11:22 12/10/19 11:36 Duoneb 3.0-0.5 Mg/3 Ml NEB 12/10/19 11:23 3 ml ONETIME ONE Administration Departure - Departure Time of Disposition: 12:15 Disposition: DC/Tfer to [facility] 03 Condition: Good Clinical Impression: Pneumonia - Discharge Information Prescriptions: Albuterol Sulfate 2.5 mg IH Q1H PRN #30 ml PRN Reason: Dyspnea Albuterol/Ipratropium [DuoNeb 3.0-0.5 MG/3 ML] 3 ml IH Q4H #30 neb Azithromycin [Zithromax] 500 mg PO DAILY #7 tab Instructions: Community-Acquired Pneumonia, Adult Referrals: Axel Davis MD [Primary Care Provider] - Forms: ED Department Discharge Additional Instructions: please read discharge instructions on pneumonia increase oral fluids oxygen 2-4 L/min to keep oxygen saturation equal or more than 90% duoneb every 6 hours for 3 days then as needed albuterol neb every 1-2 hours as needed for shortness of breath and wheezing follow up if symptoms persist Sepsis Event Note - Focused Exam Date Exam was Performed: 12/12/19 Time Exam was Performed: 15:20
== END 2019-12-10 13:20 ==
LOC: FB.ED 10:47
DX: J18.9 Pneumonia, unspecified organism (principal); E11.9 Type 2 diabetes mellitus without complications; E66.9 Obesity, unspecified; Z86.73 Personal history of transient ischemic attack (TIA), and cerebral infarction without residual deficits; Z88.5 Allergy status to narcotic agent; Z91.018 Allergy to other foods; Z88.0 Allergy status to penicillin; Z91.030 Bee allergy status; Z88.8 Allergy status to other drugs, medicaments and biological substances
CPT/HCPCS: 94640; 99284-25; J7620-GY

== ENCOUNTER 2019-12-20 10:58 | Emergency (ER) | payer MEDICARE ==
[2019-12-20] MEDS ORDERED: Sodium Chloride 0.9% 10 ML Syringe FLUSH PRN (11:37)
[2019-12-20] MEDS ORDERED: Sodium Chloride 0.9% 500 ML IV ONE (11:38)
--- NOTE | 2019-12-20 11:38 | EDM.PDOC ---
ED HPI GENERAL MEDICAL PROBLEM - General Chief Complaint: Respiratory Problem Stated Complaint: PNEUMONIA Time Seen by Provider: 12/20/19 11:39 Source of Information: Reports: Patient, Residential Records History Limitations: Reports: Other (Dementia) - History of Present Illness INITIAL COMMENTS - FREE TEXT/NARRATIVE: Transferred from the intermediate with generalized weakness. Refusing to eat, drink, and take her medications. Patient was treated at [facility] ED on 12/10/19 for pneumonia and prescribed a course of Zithromax, which she completed. Patient denies cough, fevers, pain, SOB, or nausea. - Related Data Allergies Allergy/AdvReac Type Severity Reaction Status Date / Time aloe Allergy Other Verified 12/20/19 12:50 apixaban [From Eliquis] Allergy Other Verified 12/20/19 12:50 bee venom protein (honey bee) Allergy Other Verified 12/20/19 12:50 ciprofloxacin Allergy Other Verified 12/20/19 12:50 gabapentin Allergy Other Verified 12/20/19 12:50 lidocaine Allergy Other Verified 12/20/19 12:50 lisinopril Allergy Other Verified 12/20/19 12:50 mirabegron [From Myrbetriq] Allergy Other Verified 12/20/19 12:50 Penicillins Allergy Other Verified 12/20/19 12:50 prednisolone Allergy Other Verified 12/20/19 12:50 tomato Allergy Other Verified 12/20/19 12:50 tramadol Allergy Other Verified 12/20/19 12:50 Home Meds: Home Meds Acetaminophen 650 mg PO Q4H PRN 08/27/19 [History] Acetaminophen [Tylenol Extra Strength] 1,000 mg PO BID 08/27/19 [History] Acetaminophen with Codeine [Tylenol with Codeine #3 Tablet] 2 tab PO ASDIRECTED PRN 08/27/19 [History] Bisacodyl [Dulcolax] 10 mg RECTAL Q3D PRN 08/27/19 [History] Brimonidine [Alphagan 0.2% Ophth Soln] 1 drop EYEBOTH BID 08/27/19 [History] DULoxetine [Cymbalta] 60 mg PO DAILY 08/27/19 [History] Isosorbide Mononitrate [Isosorbide Mononitrate ER] 60 mg PO DAILY 08/27/19 [ History] Loperamide HCl [Imodium A-D] 2 mg PO ASDIRECTED PRN 08/27/19 [History] Menthol [Icy Hot Pain Relieving] 1 applic TOP BID PRN 08/27/19 [History] Ondansetron [Zofran ODT] 4 mg PO TID PRN 08/27/19 [History] Pramipexole Di-HCl [Pramipexole Dihydrochloride] 0.125 mg PO BEDTIME PRN [History] Sennosides/Docusate Sodium [Senokot-S Tablet] 1 tab PO BID 08/27/19 [History] allopurinoL [Zyloprim] 200 mg PO DAILY 08/27/19 [History] glipiZIDE [Glipizide ER] 10 mg PO DAILY 08/27/19 [History] polyethylene glycoL 3350 [MiraLAX] 17 gm PO DAILY 08/27/19 [History] Nitroglycerin [Nitrostat] 0.4 mg SL Q5M PRN 09/02/19 [History] Aspirin [Ecotrin EC] 81 mg PO DAILY 09/06/19 [History] Dextrose [Glucose Gel] 1 unit PO ASDIRECTED PRN 09/06/19 [History] EPINEPHrine [Epipen] 0.3 mg IM ASDIRECTED PRN 09/06/19 [History] Eucalyptus Oil/Menthol/Camphor [Vicks Vaporub Ointment] 1 applic TOP ASDIRECTED PRN 09/06/19 [History] Eucalyptus/Menthol [Cough Drops] 1 ea MM ASDIRECTED PRN 09/06/19 [History] Glucagon,Human Recombinant [Glucagen] 1 mg IM ASDIRECTED PRN 09/06/19 [History] Latanoprost [Xalatan] 1 drop EYEBOTH BEDTIME 09/06/19 [History] Magnesium Hydroxide [Milk of Magnesia] 30 ml PO DAILY PRN 09/06/19 [History] Trolamine Salicylate [Wicho-Micin] 1 applic TOP BID PRN 09/06/19 [History] Warfarin [Coumadin] 2.5 mg PO BEDTIME 09/06/19 [History] atorvaSTATin Calcium [Lipitor] 20 mg PO BEDTIME 09/06/19 [History] guaiFENesin [Robitussin] 10 ml PO Q4H PRN 09/06/19 [History] polyethylene glycoL 3350 [MiraLAX] 17 gm PO DAILY PRN 09/06/19 [History] Ferrous Gluconate 324 mg PO DAILY 09/28/19 [History] Metoprolol Succinate [Toprol Xl] 50 mg PO BEDTIME 09/28/19 [History] Phytonadione [Vitamin K] 100 mcg PO DAILY 09/28/19 [History] Propylene Glycol/PEG 400/Pf [Systane Ultra 0.4-0.3% Eye Drp] 1 each OP Q4H 09/28 [History] Albuterol Sulfate 2.5 mg IH Q1H PRN #30 ml 12/10/19 [Rx] Albuterol/Ipratropium [DuoNeb 3.0-0.5 MG/3 ML] 3 ml IH Q4H #30 neb 12/10/19 [Rx] Azithromycin [Zithromax] 500 mg PO DAILY #7 tab 12/10/19 [Rx] Past Medical History HEENT History: Reports: Glaucoma, Other (See Below) Other HEENT History: Dry eyes Cardiovascular History: Reports: Afib, Heart Failure, Hypertension, Other (See Below) Other Cardiovascular History: Occlusion and stenosis of carotid artery, 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, edema, PVD Gastrointestinal History: Reports: GERD, Other (See Below) Other Gastrointestinal History: Constipation, hyperlipidemia Genitourinary History: Reports: Other (See Below) Other Genitourinary History: Cystocele, overactive bladder, 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: Musculoskeletal History: Reports: Other (See Below) Other Musculoskeletal History: Spinal stenosis, fibromyalgia, weakness, osteoarthritis,R sciatica Neurological History: Reports: CVA, TIA, Other (See Below) Other Neuro History: Polyneuropathy Psychiatric History: Reports: Anxiety, Dementia, Depression Endocrine/Metabolic History: Reports: Diabetes, Type II, Obesity/BMI 30+ Hematologic History: Reports: Anemia - Past Surgical History Female Surgical History: Reports: None Endocrine Surgical History: Reports: None Social & Family History - Family History Family Medical History: Unobtainable - Caffeine Use Caffeine Use: Reports: Coffee Other Caffeine Use: 1 cup a day ED ROS GENERAL - Review of Systems Review Of Systems: Unable To Obtain Reason Not Obtained: Dementia ED EXAM, GENERAL - Physical Exam Exam: See Below Exam Limited By: No Limitations General Appearance: Alert, No Apparent Distress Eye Exam: Bilateral Eye: EOMI, PERRL Ears: Normal External Exam Nose: Normal Inspection Throat/Mouth: Normal Inspection, No Airway Compromise Head: Atraumatic, Normocephalic Neck: Supple, Full Range of Motion Respiratory/Chest: No Respiratory Distress, Lungs Clear, Normal Breath Sounds Cardiovascular: Regular Rate, Rhythm, No Murmur GI/Abdominal: Normal Bowel Sounds, Soft, Tender (generalized) Back Exam: Full Range of Motion Extremities: Normal Inspection, Normal Range of Motion Neurological: Alert, No Motor/Sensory Deficits Skin Exam: Warm, Dry, Intact Course - Vital Signs Text/Narrative:: 1555: BP 128/79, HR 96, Sa02 95%RA Last Recorded V/S: Last Vital Signs Temp 36.2 C 12/20/19 11:00 Pulse 93 12/20/19 14:00 Resp 16 12/20/19 14:00 BP 93/33 L 12/20/19 14:00 Pulse Ox 94 L 12/20/19 14:00 - Orders/Labs/Meds Orders: Active Orders 24 hr Category Date Time Status CULTURE BLOOD [BC] Urgent Lab 12/20/19 12:05 Received CULTURE BLOOD [BC] Urgent Lab 12/20/19 12:15 Received Sodium Chloride 0.9% [Saline Flush] Med 12/20/19 11:37 Active 10 ml FLUSH ASDIRECTED PRN Blood Culture x2 Reflex Set [OM.PC] Urgent Oth 12/20/19 11:36 Ordered Saline Lock Insert [OM.PC] Routine Oth 12/20/19 11:37 Ordered Medication Orders Sodium Chloride (Saline Flush) 10 ml FLUSH ASDIRECTED PRN PRN Reason: Keep Vein Open Last Admin: 12/20/19 12:50 Dose: 10 ml Labs: Laboratory Tests 12/20/19 12/20/19 12/20/19 Range/Units 12:05 12:05 12:05 WBC 5.7 (4.5-12.0) X10-3/uL RBC 5.46 H (3.23-5.20) x10(6)uL Hgb 14.3 (11.5-15.5) g/dL Hct 45.6 (30.0-51.3) % MCV 83.6 (80-96) fL MCH 26.2 L (27.7-33.6) pg MCHC 31.3 L (32.2-35.4) g/dL RDW 17.2 H (11.5-15.5) % Plt Count 252 (125-369) X10(3)uL MPV 9.7 (7.4-10.4) fL Neut % (Auto) 61.9 (46-82) % Lymph % (Auto) 29.4 (13-37) % Arthur % (Auto) 6.1 (4-12) % Eos % (Auto) 2 (1.0-5.0) % Baso % (Auto) 0 (0-2) % Neut # (Auto) 3.6 (1.6-8.3) # Lymph # (Auto) 1.7 (0.6-5.0) # Arthur # (Auto) 0.3 (0.0-1.3) # Eos # (Auto) 0.1 (0.0-0.8) # Baso # (Auto) 0.0 (0.0-0.2) # PT (9.0-11.1) sec INR (1.00-1.24) D-Dimer, Quantitative (0.0-0.59) mg/LFEU Sodium (135-145) mmol/L Potassium (3.5-5.3) mmol/L Chloride (100-110) mmol/L Carbon Dioxide (21-32) mmol/L BUN (7-18) mg/dL Creatinine (0.55-1.02) mg/dL Est Cr Clr Drug Dosing Estimated GFR (MDRD) (>60) BUN/Creatinine Ratio (9-20) Glucose (80-116) mg/dL Lactic Acid 1.0 (0.4-2.0) mmol/L Calcium (8.6-10.2) mg/dL Magnesium (1.8-2.5) mg/dL Total Bilirubin (0.1-1.3) mg/dL AST (5-25) IU/L ALT (12-36) U/L Alkaline Phosphatase (56-112) IU/L Troponin I 12.9 (4.0-60.3) pg/mL NT-Pro-B Natriuret Pep (<=450) pg/mL Total Protein (6.0-8.0) g/dL Albumin (3.2-4.6) g/dL Globulin g/dL Albumin/Globulin Ratio Lipase 74 (73-393) U/L Urine Color (YELLOW) Urine Appearance (CLEAR) Urine pH (5.0-6.5) Ur Specific Smiley (1.010-1.025) Urine Protein (NEGATIVE) mg/dL Urine Glucose (UA) (NORMAL) mg/dL Urine Ketones (NEGATIVE) mg/dL Urine Occult Blood (NEGATIVE) Urine Nitrite (NEGATIVE) Urine Bilirubin (NEGATIVE) Urine Urobilinogen (NEGATIVE) mg/dL Ur Leukocyte Esterase (NEGATIVE) Urine RBC (0-5) Urine WBC (0-5) Urine Bacteria (NS) 12/20/19 12/20/19 12/20/19 Range/Units 12:05 12:05 12:05 WBC (4.5-12.0) X10-3/uL RBC (3.23-5.20) x10(6)uL Hgb (11.5-15.5) g/dL Hct (30.0-51.3) % MCV (80-96) fL MCH (27.7-33.6) pg MCHC (32.2-35.4) g/dL RDW (11.5-15.5) % Plt Count (125-369) X10(3)uL MPV (7.4-10.4) fL Neut % (Auto) (46-82) % Lymph % (Auto) (13-37) % Arthur % (Auto) (4-12) % Eos % (Auto) (1.0-5.0) % Baso % (Auto) (0-2) % Neut # (Auto) (1.6-8.3) # Lymph # (Auto) (0.6-5.0) # Arthur # (Auto) (0.0-1.3) # Eos # (Auto) (0.0-0.8) # Baso # (Auto) (0.0-0.2) # PT 47.3 H* (9.0-11.1) sec INR 5.45 H* (1.00-1.24) D-Dimer, Quantitative 1.99 H (0.0-0.59) mg/LFEU Sodium (135-145) mmol/L Potassium (3.5-5.3) mmol/L Chloride (100-110) mmol/L Carbon Dioxide (21-32) mmol/L BUN (7-18) mg/dL Creatinine (0.55-1.02) mg/dL Est Cr Clr Drug Dosing Estimated GFR (MDRD) (>60) BUN/Creatinine Ratio (9-20) Glucose (80-116) mg/dL Lactic Acid (0.4-2.0) mmol/L Calcium (8.6-10.2) mg/dL Magnesium (1.8-2.5) mg/dL Total Bilirubin (0.1-1.3) mg/dL AST (5-25) IU/L ALT (12-36) U/L Alkaline Phosphatase (56-112) IU/L Troponin I (4.0-60.3) pg/mL NT-Pro-B Natriuret Pep 9110 H* (<=450) pg/mL Total Protein (6.0-8.0) g/dL Albumin (3.2-4.6) g/dL Globulin g/dL Albumin/Globulin Ratio Lipase (73-393) U/L Urine Color (YELLOW) Urine Appearance (CLEAR) Urine pH (5.0-6.5) Ur Specific Smiley (1.010-1.025) Urine Protein (NEGATIVE) mg/dL Urine Glucose (UA) (NORMAL) mg/dL Urine Ketones (NEGATIVE) mg/dL Urine Occult Blood (NEGATIVE) Urine Nitrite (NEGATIVE) Urine Bilirubin (NEGATIVE) Urine Urobilinogen (NEGATIVE) mg/dL Ur Leukocyte Esterase (NEGATIVE) Urine RBC (0-5) Urine WBC (0-5) Urine Bacteria (NS) 12/20/19 12/20/19 Range/Units 12:19 13:21 WBC (4.5-12.0) X10-3/uL RBC (3.23-5.20) x10(6)uL Hgb (11.5-15.5) g/dL Hct (30.0-51.3) % MCV (80-96) fL MCH (27.7-33.6) pg MCHC (32.2-35.4) g/dL RDW (11.5-15.5) % Plt Count (125-369) X10(3)uL MPV (7.4-10.4) fL Neut % (Auto) (46-82) % Lymph % (Auto) (13-37) % Arthur % (Auto) (4-12) % Eos % (Auto) (1.0-5.0) % Baso % (Auto) (0-2) % Neut # (Auto) (1.6-8.3) # Lymph # (Auto) (0.6-5.0) # Arthur # (Auto) (0.0-1.3) # Eos # (Auto) (0.0-0.8) # Baso # (Auto) (0.0-0.2) # PT (9.0-11.1) sec INR (1.00-1.24) D-Dimer, Quantitative (0.0-0.59) mg/LFEU Sodium 142 (135-145) mmol/L Potassium 4.4 (3.5-5.3) mmol/L Chloride 106 (100-110) mmol/L Carbon Dioxide 26 (21-32) mmol/L BUN 40 H D (7-18) mg/dL Creatinine 1.4 H (0.55-1.02) mg/dL Est Cr Clr Drug Dosing TNP Estimated GFR (MDRD) 36 L (>60) BUN/Creatinine Ratio 28.6 H (9-20) Glucose 101 (80-116) mg/dL Lactic Acid (0.4-2.0) mmol/L Calcium 8.6 (8.6-10.2) mg/dL Magnesium 2.0 (1.8-2.5) mg/dL Total Bilirubin 0.6 (0.1-1.3) mg/dL AST 18 (5-25) IU/L ALT 22 D (12-36) U/L Alkaline Phosphatase 177 H (56-112) IU/L Troponin I (4.0-60.3) pg/mL NT-Pro-B Natriuret Pep (<=450) pg/mL Total Protein 6.6 (6.0-8.0) g/dL Albumin 2.6 L (3.2-4.6) g/dL Globulin 4.0 g/dL Albumin/Globulin Ratio 0.7 Lipase (73-393) U/L Urine Color Yellow (YELLOW) Urine Appearance Clear (CLEAR) Urine pH 5.0 (5.0-6.5) Ur Specific Smiley 1.020 (1.010-1.025) Urine Protein Trace (NEGATIVE) mg/dL Urine Glucose (UA) Normal (NORMAL) mg/dL Urine Ketones Negative (NEGATIVE) mg/dL Urine Occult Blood Negative (NEGATIVE) Urine Nitrite Negative (NEGATIVE) Urine Bilirubin Small H (NEGATIVE) Urine Urobilinogen Normal (NEGATIVE) mg/dL Ur Leukocyte Esterase Small H (NEGATIVE) Urine RBC Not seen (0-5) Urine WBC Not seen (0-5) Urine Bacteria Rare H (NS) Meds: Medications Generic Name Dose Route Start Last Admin Trade Name Freq PRN Reason Stop Dose Admin Sodium Chloride 10 ml 12/20/19 11:37 12/20/19 12:50 Saline Flush FLUSH 10 ml ASDIRECTED PRN Administration Keep Vein Open Discontinued Medications Generic Name Dose Route Start Last Admin Trade Name Freq PRN Reason Stop Dose Admin Furosemide 20 mg 12/20/19 15:50 Lasix PO 12/20/19 15:51 ONETIME ONE Sodium Chloride 500 mls @ 500 mls/hr 12/20/19 11:38 12/20/19 12:55 Normal Saline IV 12/20/19 12:37 500 mls/hr .BOLUS ONE Administration Iopamidol 100 ml 12/20/19 14:25 12/20/19 14:55 Isovue-370 (76%) IV 12/20/19 14:26 71 ml ONETIME ONE Administration - Radiology Interpretation Free Text/Narrative:: CXR: Increasing pleural parenchymal changes at the left lung base, etiology indeterminate. (Dr. Nelson) CTA Chest: LLL chronic pulmonary embolus, no acute embolus, bilateral pleural effusions left>right. (per Dr. Nelson) - Re-Assessments/Exams Free Text/Narrative Re-Assessment/Exam: 12/20/19 15:59 Patient care discussed with Dr. Davis, recommends hold Coumadin x 3 days, then recheck INR. Departure - Departure Time of Disposition: 15:59 Disposition: DC/Tfer to SNF 03 Condition: Good Clinical Impression: Coagulopathy Chronic pulmonary embolism Qualifiers: Pulmonary embolism type: other Acute cor pulmonale presence: without acute cor pulmonale Qualified Code(s): I27.82 - Chronic pulmonary embolism CHF exacerbation Qualifiers: Heart failure type: unspecified Qualified Code(s): I50.9 - Heart failure, unspecified - Discharge Information *PRESCRIPTION DRUG MONITORING PROGRAM REVIEWED*: No *COPY OF PRESCRIPTION DRUG MONITORING REPORT IN PATIENT JANIYA: Not Applicable Instructions: Pulmonary Embolism, Heart Failure, [id number], Warfarin Coagulopathy Referrals: Axel Davis MD [Primary Care Provider] - 3 Days Forms: ED Department Discharge Additional Instructions: Start Lasix 20 mg daily. Hold Coumadin x 3 days, then check INR, call Dr. Davis with results. Return to the ER as needed. Sepsis Event Note - Focused Exam Vital Signs: Vital Signs Temp Pulse Resp BP Pulse Ox 12/20/19 14:00 93 16 93/33 L 94 L 12/20/19 12:20 62 107/69 12/20/19 11:00 36.2 C 60 18 110/75 95 Date Exam was Performed: 12/20/19 Time Exam was Performed: 15:55 - My Orders Last 24 Hours: My Active Orders 12/20/19 11:36 Blood Culture x2 Reflex Set [OM.PC] Urgent 12/20/19 11:37 Sodium Chloride 0.9% [Saline Flush] 10 ml FLUSH ASDIRECTED PRN Saline Lock Insert [OM.PC] Routine 12/20/19 12:05 CULTURE BLOOD [BC] Urgent 12/20/19 12:15 CULTURE BLOOD [BC] Urgent - Assessment/Plan Last 24 Hours: My Active Orders 12/20/19 11:36 Blood Culture x2 Reflex Set [OM.PC] Urgent 12/20/19 11:37 Sodium Chloride 0.9% [Saline Flush] 10 ml FLUSH ASDIRECTED PRN Saline Lock Insert [OM.PC] Routine 12/20/19 12:05 CULTURE BLOOD [BC] Urgent 12/20/19 12:15 CULTURE BLOOD [BC] Urgent
--- NOTE | 2019-12-20 13:05 | CR ---
INDICATION: Weakness. CHEST, 1 VIEW: A single AP, portable upright view of the chest was obtained. The patient was unable to cooperate with the examination. Poor inspiration is noted emphasizing markings. The study was obtained 12/20/19 as compared with and 09/28/19. Pleural parenchymal changes are again noted at the left lung base. These may be on the basis of fibrosis or chronic inflammatory disease. Another possibility would be pulmonary infarct in a patient with pulmonary embolus on the left. This should be correlated clinically. The heart appeared prominent in size. The aorta is tortuous. Calcification is noted in the arch of the aorta. Evidence of median sternotomy is noted. IMPRESSION: There may be increasing pleural parenchymal changes at the left lung base, etiology indeterminate. Report was given by phone to Dr. Montez at 12:45 hours. [facility]
[2019-12-20] MEDS ORDERED: Iopamidol 755 Mg/ML 100 ML Bottle IV ONE (14:25)
--- NOTE | 2019-12-20 15:44 | CT ---
INDICATION: Abnormal chest x-ray, elevated D-dimer, PE protocol. CT ANGIOGRAPHY OF THE CHEST: Spiral 1.25 mm axial sections were obtained through the chest with 71 mL Isovue 370 at 3 mL/sec and compared with a lower chest included on a CT of the abdomen dated 09/02/19. Total exam DLP was 863.93 mGy-cm. There are again noted bibasilar pleural parenchymal changes, much more prominent on the left than right, decreased in severity on the right compared with the previous CT of 09/02/2019, but similar or slightly more prominent on the left where more consolidated lung is present than previously. This appearance could be on the basis of a chronic inflammatory disease process or possibly pulmonary infarctions, but should be correlated clinically. The pulmonary arteries appear to be fairly well opacified. In the left lower lobe, on axial image 282 and coronal image 66, there is a circumferential area of narrowing of the lumen - significant stenosis is noted at this level although it is not completely obstructed. The appearance suggests a chronic pulmonary embolus in this second order pulmonary artery going to the left lower lobe. This would be compatible with pulmonary infarct, therefore, and should be correlated clinically. Calcifications are noted in brachiocephalic vessels and the aorta and coronary arteries. The heart did not appear enlarged. No pericardial effusion was seen. Mediastinal lymphadenopathy is [id number] and nonspecific. The liver had a normal appearance. The gallbladder is absent compatible with history of its removal. Calcifications are noted in the abdominal aorta, gastric and splenic superior mesenteric arteries. Renal fascial thickening is noted bilaterally, which could be on the basis of previous pyelonephritis. Renal arteries calcifications are also noted. A calcification in the midpole area of the right kidney may represent a renal calcinosis rather than an arterial calcification. There is an appearance of fatty replacement of the pancreas, most prominently in the head of the pancreas area. A followup study in 6-12 months would be confirmatory as felt to be clinically necessary. IMPRESSION: 1. 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 Pleural parenchymal changes at the right lung base could also be on that basis - right lower lobe pulmonary artery embolism not visualized at this time, however. 2. ASD/ASHD. 3. Post cholecystectomy. 4. Renal calcinosis on the right with renal cortical scarring of mild degree bilaterally. 5. Rounded, probably slight calcified nodule on axial image 185, series 2 and image 47 on long window images, series 3 measured 7.8 mm and is subpleural in location. It may represent a post granulomatous change or an enlarged lymph node. A followup study in 6-12 months would be confirmatory as felt to be clinically necessary. Report was called to Dr. Montez immediately after the examination was interpreted (15:07 hours). [facility]
[2019-12-20] MEDS ORDERED: Furosemide 20 MG Tab PO ONE (15:50)
== END 2019-12-20 16:30 | disposition home or self-care (01) ==
LOC: FB.ED 10:58
DX: D68.9 Coagulation defect, unspecified (principal); I27.82 Chronic pulmonary embolism; I11.0 Hypertensive heart disease with heart failure; I50.9 Heart failure, unspecified; I48.91 Unspecified atrial fibrillation; E11.9 Type 2 diabetes mellitus without complications; K21.9 Gastro-esophageal reflux disease without esophagitis; F41.9 Anxiety disorder, unspecified; Z86.73 Personal history of transient ischemic attack (TIA), and cerebral infarction without residual deficits; Z79.84 Long term (current) use of oral hypoglycemic drugs; Z79.899 Other long term (current) drug therapy; Z88.8 Allergy status to other drugs, medicaments and biological substances; Z88.6 Allergy status to analgesic agent; Z88.1 Allergy status to other antibiotic agents; Z91.030 Bee allergy status; Z91.09 Other allergy status, other than to drugs and biological substances
CPT/HCPCS: 36415; 71045; 71275; 80053; 81001; 83605; 83690; 83735; 83880; 84484; 85025; 85379; 85610; 87040; 96360; 99285; A9270; J7040; Q9967; 99284

== ENCOUNTER 2020-03-28 09:22 | Emergency (ER) | payer MEDICARE ==
--- NOTE | 2020-03-28 10:12 | EDM.PDOC ---
ED HPI GENERAL MEDICAL PROBLEM - General Chief Complaint: Head Injury Time Seen by Provider: 03/28/20 09:35 Source of Information: Reports: Patient History Limitations: Reports: No Limitations - History of Present Illness INITIAL COMMENTS - FREE TEXT/NARRATIVE: Patient presented to the ED because a head injury. She tripped and fell and hit her forehead on the floor. There was no LOC after the fall but she sustained skin tear on the left forearm. She denies having any headache,N/V. left forehead and left arm/elbow Pain Score (Numeric/FACES): 6 - Related Data Allergies Allergy/AdvReac Type Severity Reaction Status Date / Time aloe Allergy Other Verified 03/28/20 09:31 apixaban [From Eliquis] Allergy Other Verified 03/28/20 09:31 bee venom protein (honey bee) Allergy Other Verified 03/28/20 09:31 ciprofloxacin Allergy Other Verified 03/28/20 09:31 gabapentin Allergy Other Verified 03/28/20 09:31 lidocaine Allergy Other Verified 03/28/20 09:31 lisinopril Allergy Other Verified 03/28/20 09:31 mirabegron [From Myrbetriq] Allergy Other Verified 03/28/20 09:31 Penicillins Allergy Other Verified 03/28/20 09:31 prednisolone Allergy Other Verified 03/28/20 09:31 tomato Allergy Other Verified 03/28/20 09:31 tramadol Allergy Other Verified 03/28/20 09:31 Home Meds: Home Meds Acetaminophen 650 mg PO Q4H PRN 08/27/19 [History] Acetaminophen [Tylenol Extra Strength] 1,000 mg PO BID 08/27/19 [History] Acetaminophen with Codeine [Tylenol with Codeine #3 Tablet] 2 tab PO ASDIRECTED PRN 08/27/19 [History] Brimonidine [Alphagan 0.2% Ophth Soln] 1 drop EYEBOTH BID 08/27/19 [History] DULoxetine [Cymbalta] 60 mg PO DAILY 08/27/19 [History] Isosorbide Mononitrate [Isosorbide Mononitrate ER] 60 mg PO DAILY 08/27/19 [History] Loperamide HCl [Imodium A-D] 2 mg PO ASDIRECTED PRN 08/27/19 [History] Menthol [Icy Hot Pain Relieving] 1 applic TOP BID PRN 08/27/19 [History] Ondansetron [Zofran ODT] 4 mg PO TID PRN 08/27/19 [History] Pramipexole Di-HCl [Pramipexole Dihydrochloride] 0.125 mg PO BEDTIME PRN 08/27/19 [History] Sennosides/Docusate Sodium [Senokot-S Tablet] 1 tab PO BID 08/27/19 [History] allopurinoL [Zyloprim] 200 mg PO DAILY 08/27/19 [History] bisacodyL [Dulcolax] 10 mg RECTAL Q3D PRN 08/27/19 [History] glipiZIDE [Glipizide ER] 10 mg PO DAILY 08/27/19 [History] polyethylene glycoL 3350 [MiraLAX] 17 gm PO DAILY 08/27/19 [History] Nitroglycerin [Nitrostat] 0.4 mg SL Q5M PRN 09/02/19 [History] Aspirin [Ecotrin EC] 81 mg PO DAILY 09/06/19 [History] Dextrose [Glucose Gel] 1 unit PO ASDIRECTED PRN 09/06/19 [History] EPINEPHrine [Epipen] 0.3 mg IM ASDIRECTED PRN 09/06/19 [History] Eucalyptus Oil/Menthol/Camphor [Vicks Vaporub Ointment] 1 applic TOP ASDIRECTED PRN 09/06/19 [History] Eucalyptus/Menthol [Cough Drops] 1 ea MM ASDIRECTED PRN 09/06/19 [History] Glucagon,Human Recombinant [Glucagen] 1 mg IM ASDIRECTED PRN 09/06/19 [History] Latanoprost [Xalatan] 1 drop EYEBOTH BEDTIME 09/06/19 [History] Magnesium Hydroxide [Milk of Magnesia] 30 ml PO DAILY PRN 09/06/19 [History] Trolamine Salicylate [Wicho-Micin] 1 applic TOP BID PRN 09/06/19 [History] Warfarin [Coumadin] 2.5 mg PO BEDTIME 09/06/19 [History] atorvaSTATin Calcium [Lipitor] 20 mg PO BEDTIME 09/06/19 [History] guaiFENesin [Robitussin] 10 ml PO Q4H PRN 09/06/19 [History] polyethylene glycoL 3350 [MiraLAX] 17 gm PO DAILY PRN 09/06/19 [History] Ferrous Gluconate 324 mg PO DAILY 09/28/19 [History] Metoprolol Succinate [Toprol Xl] 50 mg PO BEDTIME 09/28/19 [History] Phytonadione [Vitamin K] 100 mcg PO DAILY 09/28/19 [History] Propylene Glycol/PEG 400/Pf [Systane Ultra 0.4-0.3% Eye Drp] 1 each OP Q4H 09/28/19 [History] Albuterol Sulfate 2.5 mg IH Q1H PRN #30 ml 12/10/19 [Rx] Albuterol/Ipratropium [DuoNeb 3.0-0.5 MG/3 ML] 3 ml IH Q4H #30 neb 12/10/19 [Rx] Azithromycin [Zithromax] 500 mg PO DAILY #7 tab 12/10/19 [Rx] Past Medical History HEENT History: Reports: Glaucoma, Other (See Below) Other HEENT History: Dry eyes Cardiovascular History: Reports: Afib, Heart Failure, Hypertension, Other (See Below) Other Cardiovascular History: Occlusion and stenosis of carotid artery, 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, edema, PVD Gastrointestinal History: Reports: GERD, Other (See Below) Other Gastrointestinal History: Constipation, hyperlipidemia Genitourinary History: Reports: Other (See Below) Other Genitourinary History: Cystocele, overactive bladder, 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: Musculoskeletal History: Reports: Other (See Below) Other Musculoskeletal History: Spinal stenosis, fibromyalgia, weakness,osteoarthritis,R sciatica Neurological History: Reports: CVA, TIA, Other (See Below) Other Neuro History: Polyneuropathy Psychiatric History: Reports: Anxiety, Dementia, Depression Endocrine/Metabolic History: Reports: Diabetes, Type II, Obesity/BMI 30+ Hematologic History: Reports: Anemia - Past Surgical History Female Surgical History: Reports: None Endocrine Surgical History: Reports: None Social & Family History - Family History Family Medical History: Unobtainable - Caffeine Use Caffeine Use: Reports: Coffee Other Caffeine Use: 1 cup a day ED ROS GENERAL - Review of Systems Review Of Systems: See Below Constitutional: Reports: No Symptoms HEENT: Reports: No Symptoms Respiratory: Reports: No Symptoms Cardiovascular: Reports: No Symptoms Endocrine: Reports: No Symptoms GI/Abdominal: Reports: No Symptoms : Reports: No Symptoms Musculoskeletal: Reports: No Symptoms Skin: Reports: Wound Neurological: Reports: No Symptoms Psychiatric: Reports: No Symptoms ED EXAM, HEAD INJURY - Physical Exam Exam: See Below Exam Limited By: No Limitations General Appearance: Alert, No Apparent Distress Head: Atraumatic, Normocephalic Eyes: Bilateral Eye: PERRL Ears: Normal External Exam, Normal Canal Nose: Normal Inspection, Normal Mucousa, No Blood Throat/Mouth: Normal Inspection, Normal Lips, Normal Teeth Neck: Non-Tender, Full Range of Motion, Normal Alignment Respiratory: No Respiratory Distress, Lungs Clear, Normal Breath Sounds Cardiovascular: Normal Peripheral Pulses, Regular Rate, Rhythm, No Edema, No Gallop GI/Abdominal Exam: Normal Bowel Sounds, Soft, Non-Tender, No Organomegaly Back Exam: Normal Inspection, Full Range of Motion Extremities: Normal Inspection, Normal Range of Motion, Non-Tender 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, No Motor/Sensory Deficits, Alert, Normal Mood/Affect, Oriented x 3 Skin: Normal Color, Other (sin tear on the left forearm) Course - Vital Signs Text/Narrative:: Head CT neg Steri strips applied on skin tears on left fore forearm Last Recorded V/S: Last Vital Signs Temp 36.7 C 03/28/20 09:32 Pulse 107 H 03/28/20 11:20 Resp 17 03/28/20 11:20 BP 144/92 H 03/28/20 11:20 Pulse Ox 97 03/28/20 11:20 - Orders/Labs/Meds Orders: Active Orders 24 hr Category Date Time Status Head wo Cont [CT] Stat Exams 03/28/20 09:34 Taken Departure - Departure Time of Disposition: 11:00 Disposition: Home, Self-Care 01 Condition: Good Clinical Impression: Skin tear, Closed head injury - Discharge Information Instructions: Skin Tear, [id number], Head Injury, Adult, [id number] Referrals: PCP,None [Primary Care Provider] - Forms: ED Department Discharge Additional Instructions: Please read discharge instructions on closed head injury and skin tear Hold coumadin x 3 days, resume on Friday and check on Friday Follow up as needed Sepsis Event Note (ED) - Evaluation Sepsis Screening Result: No Definite Risk - Focused Exam Vital Signs: Vital Signs Temp Pulse Resp BP Pulse Ox 03/28/20 11:20 107 H 17 144/92 H 97 03/28/20 09:32 36.7 C 97 18 138/68 97 - My Orders Last 24 Hours: My Active Orders 03/28/20 09:34 Head wo Cont [CT] Stat - Assessment/Plan Last 24 Hours: My Active Orders 03/28/20 09:34 Head wo Cont [CT] Stat
== END 2020-03-28 11:45 | disposition home or self-care (01) ==
LOC: FB.ED 09:22
DX: S51.812A Laceration without foreign body of left forearm, initial encounter (principal); S09.90XA Unspecified injury of head, initial encounter; I48.91 Unspecified atrial fibrillation; I11.0 Hypertensive heart disease with heart failure; I50.9 Heart failure, unspecified; K21.9 Gastro-esophageal reflux disease without esophagitis; Z86.73 Personal history of transient ischemic attack (TIA), and cerebral infarction without residual deficits; F03.90 Unspecified dementia, unspecified severity, without behavioral disturbance, psychotic disturbance, mood disturbance, and anxiety; F41.9 Anxiety disorder, unspecified; F32.9 Major depressive disorder, single episode, unspecified; E11.9 Type 2 diabetes mellitus without complications; E11.42 Type 2 diabetes mellitus with diabetic polyneuropathy; E66.9 Obesity, unspecified; E11.51 Type 2 diabetes mellitus with diabetic peripheral angiopathy without gangrene; M19.90 Unspecified osteoarthritis, unspecified site; Z68.34 Body mass index [BMI] 34.0-34.9, adult; Z91.018 Allergy to other foods; Z88.5 Allergy status to narcotic agent; Z88.0 Allergy status to penicillin; Z88.6 Allergy status to analgesic agent; Z88.8 Allergy status to other drugs, medicaments and biological substances; Z91.09 Other allergy status, other than to drugs and biological substances; Z79.82 Long term (current) use of aspirin; Z79.84 Long term (current) use of oral hypoglycemic drugs; Z79.899 Other long term (current) drug therapy; W01.10XA Fall on same level from slipping, tripping and stumbling with subsequent striking against unspecified object, initial encounter
CPT/HCPCS: 70450; 99283-25